=== PATIENT | female | born 1960 | race Caucasian/White ===

== ENCOUNTER 2017-10-09 05:30 | Emergency (ER) | payer BC ==
[2017-10-09] MEDS ORDERED: DIPH,PERTUS(ACELL)TETVAC-LF 0.5 ML VIAL IM ONE (05:42)
[2017-10-09 05:43] VITALS: RESP 18
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
[2017-10-09 06:40] LABS: ALT 42 U/L (9-52); AST 34 U/L (14-36); Acetaminophen <10.0 ug/mL; Alcohol <10 mg/dL; Alkaline Phosphatase 76 U/L (38-126); Anion Gap 10 mmol/L; Blood Urea Nitrogen 18 mg/dL (7-17); Calcium 10.4 mg/dL (8.4-10.2); Carbon Dioxide 25 mmol/L (22-30); Chloride 106 mmol/L (98-107); Glucose 111 mg/dL (74-99); Non-African American GFR(MDRD) >60 (>60 ml/min/1.73 sqM); Potassium 4.3 mmol/L (3.5-5.1); Sodium 141 mmol/L (137-145); Total Bilirubin 0.9 mg/dL (0.2-1.3); Total Protein 7.6 g/dL (6.3-8.2)
[2017-10-09 06:48] LABS: Basophils % (A) 1 %; CH 34.6; CHCM 33.8; Eosinophils % (A) 0 %; HCT 46.9 % (34.0-46.0); HDW 2.55; HGB 15.5 gm/dL (11.4-16.0); Luc # (Auto) 0.09; Luc % (Auto) 1; Lymphocytes # (A) 1.5 k/uL (1.0-4.8); Lymphocytes % (A) 17 %; MCH 34.1 pg (25.0-35.0); MCHC 33.1 g/dL (31.0-37.0); MCV 102.9 fL (80.0-100.0); Macrocytosis Slight; Mean Platelet Volume 8.7; Monocytes # (A) 0.5 k/uL (0-1.0); Monocytes % (A) 5 %; Neutrophils # (A) 6.5 k/uL (1.3-7.7); Neutrophils % (A) 76 %; RBC 4.55 m/uL (3.80-5.40); RDW 14.5 % (11.5-15.5); WBC 8.6 k/uL (3.8-10.6); WBC (Perox) 8.52
[2017-10-09 10:10] VITALS: TEMP 98.2
[2017-10-09 12:47] VITALS: BP 173/84; PULSE 82
== END 2017-10-09 12:48 | disposition other institution (70) ==
LOC: EC 05:30
DX: F32.9 Major depressive disorder, single episode, unspecified (principal); R45.851 Suicidal ideations; S61.511A Laceration without foreign body of right wrist, initial encounter; F17.200 Nicotine dependence, unspecified, uncomplicated; Z88.8 Allergy status to other drugs, medicaments and biological substances; Z53.29 Procedure and treatment not carried out because of patient's decision for other reasons; X78.1XXA Intentional self-harm by knife, initial encounter
CPT/HCPCS: 36415; 80053; 80320; 82075; 83520; 85025; 93005; 99285

== ENCOUNTER 2017-11-06 08:17 | Emergency (ER) | payer BC ==
[2017-11-06 08:23] VITALS: BP 157/75; PULSE 80; RESP 16; TEMP 98.2
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
== END 2017-11-06 08:57 | disposition home or self-care (01) ==
LOC: EC 08:17
DX: Z76.0 Encounter for issue of repeat prescription (principal); F17.200 Nicotine dependence, unspecified, uncomplicated; Z88.5 Allergy status to narcotic agent; Z88.8 Allergy status to other drugs, medicaments and biological substances; Z91.048 Other nonmedicinal substance allergy status
CPT/HCPCS: 99281

== ENCOUNTER 2017-11-16 08:39 | Emergency (ER) | payer BC ==
[2017-11-16 08:45] VITALS: TEMP 97.3
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
[2017-11-16] MEDS: cloNIDine HCL 0.1 MG TAB PO STA ×2 (09:08→09:10)
[2017-11-16 09:13] VITALS: BP 179/80; PULSE 70; RESP 16
== END 2017-11-16 09:12 | disposition home or self-care (01) ==
LOC: EC 08:39
DX: I10 Essential (primary) hypertension (principal); Z76.0 Encounter for issue of repeat prescription; F32.9 Major depressive disorder, single episode, unspecified; Z88.8 Allergy status to other drugs, medicaments and biological substances; Z88.5 Allergy status to narcotic agent; Z53.20 Procedure and treatment not carried out because of patient's decision for unspecified reasons
CPT/HCPCS: 99282

== ENCOUNTER → 2018-03-20 | Outpatient (CLI) | payer BC ==
--- NOTE | 2018-03-23 11:07 | MM ---
Reason for exam: screening (asymptomatic). History: Patient is postmenopausal. Benign excisional biopsy of the right breast. Physical Findings: A clinical breast exam by your physician is recommended on an annual basis and results should be correlated with mammographic findings. MG Screening Mammo w CAD Bilateral CC and MLO view(s) were taken. No prior studies available for comparison. The breast tissue is heterogeneously dense. This may lower the sensitivity of mammography. Finding: There are typically benign round calcifications in the left breast. There is no discrete abnormality. ASSESSMENT: Negative, BI-RAD 1 RECOMMENDATION: Routine screening mammogram of both breasts in 1 year.
== END | disposition home or self-care (01) ==
LOC: RADMAMWWP 07:26
PROVIDERS: ATTEND Family Medicine
DX: Z12.31 Encounter for screening mammogram for malignant neoplasm of breast (principal)
CPT/HCPCS: 77067

== ENCOUNTER → 2018-03-27 | Outpatient (CLI) | payer BC ==
[2018-03-27 09:28] LABS: HCT 43.7 % (34.0-46.0); HGB 14.6 gm/dL (11.4-16.0); MCH 33.6 pg (25.0-35.0); MCHC 33.5 g/dL (31.0-37.0); MCV 100.2 fL (80.0-100.0); Mean Platelet Volume 7.5; Platelet Count 173 k/uL (150-450); RBC 4.36 m/uL (3.80-5.40); RDW 13.3 % (11.5-15.5); WBC 5.2 k/uL (3.8-10.6)
[2018-03-27 09:56] LABS: ALT 41 U/L (9-52); AST 31 U/L (14-36); Albumin 4.3 g/dL (3.5-5.0); Alkaline Phosphatase 83 U/L (38-126); Anion Gap 9 mmol/L; Blood Urea Nitrogen 9 mg/dL (7-17); Calcium 9.8 mg/dL (8.4-10.2); Carbon Dioxide 29 mmol/L (22-30); Chloride 106 mmol/L (98-107); Cholesterol 176 mg/dL (<200); Glucose 87 mg/dL (74-99); HDL Cholesterol 46 mg/dL (40-60); LDL Cholesterol,Calculated 82 mg/dL (0-99); Potassium 4.6 mmol/L (3.5-5.1); Sodium 144 mmol/L (137-145); Total Bilirubin 0.8 mg/dL (0.2-1.3); Total Protein 6.6 g/dL (6.3-8.2); Triglycerides 241 mg/dL (<150)
== END ==
LOC: LABWHC1 08:52
PROVIDERS: ATTEND Internal Medicine Cardiovascular Disease
DX: E78.2 Mixed hyperlipidemia (principal); I25.10 Atherosclerotic heart disease of native coronary artery without angina pectoris
CPT/HCPCS: 36415; 80053; 80061; 85027

== ENCOUNTER 2018-03-30 07:49 | Day surgery (SDC) | payer BC ==
[~2018-03-30 07:49] MED LIST: ALPRAZolam 0.25 MG TAB PO PRN; ASPIRIN 325 MG TAB PO ONE; SODIUM CHLORIDE 0.9% 1,000 ML in EMPTY BAG 1 BAG IV ONE
[2018-03-30] MEDS ORDERED: LIDOCAINE 2% INJ 20 MG/ML (20 ML MDV) ONE ×2 (08:17→12:10)
[2018-03-30] MEDS ORDERED: diphenhydrAMINE 50 MG/ML 1 ML VIAL ONE ×2 (08:17→12:22)
[2018-03-30] MEDS ORDERED: diphenhydrAMINE 50 MG/ML 1 ML VIAL IVP ONE ×2 (08:20→12:30)
[2018-03-30] MEDS ORDERED: MIDAZOLAM 2 MG/2 ML VIAL IV ONE ×2 (08:20→11:05)
[2018-03-30] MEDS ORDERED: MIDAZOLAM 2 MG/2 ML VIAL ONE ×3 (08:21→12:22)
[2018-03-30] MEDS ORDERED: LIDOCAINE 2% INJ 20 MG/ML SQ ONE (08:22)
[2018-03-30] MEDS ORDERED: amLODIPine 5 MG TAB ONE (08:38)
[2018-03-30] MEDS ORDERED: amLODIPine 5 MG TAB PO ONE (08:41)
[2018-03-30] MEDS ORDERED: IOPAMIDOL-370 125ML BTL INJ ONE (08:50)
--- NOTE | 2018-03-30 09:27 | CC ---
CARDIAC CATHETERIZATION REPORT INDICATION: Abnormal stress test that was done as part of preop cardiac evaluation. PROCEDURE NOTE: After obtaining informed consent, left heart catheterization and coronary angiogram were performed via the right femoral artery using standard Susan catheters. Patient tolerated the procedure well without any obvious immediate complications. The patient tolerated the procedure well. FINDINGS: 1. HEMODYNAMICS: Left ventricular end-diastolic pressure is 18 mm. There is no significant gradient across the aortic valve. 2. LEFT VENTRICULOGRAM: Left ventriculogram is not performed. 3. ANGIOGRAPHIC DATA: 4. Left main coronary artery: Left main coronary artery is a normal size vessel and is free of stenosis. Divides into left anterior descending coronary artery and circumflex coronary artery. LAD is totally occluded in its proximal portion. There are extensive collaterals. There are collaterals which are both [id number] and [id number]. Circumflex coronary artery has a mild to moderate lesion in the proximal part. Right coronary artery is a large dominant vessel which has extensive collaterals to the LAD distribution. There is a 70% stenosis in the mid RCA and also a more proximal 60% to 70% stenosis. CONCLUSION: Three-vessel coronary artery disease as described above with a chronically occluded left anterior descending artery, significant stenosis in the right coronary artery with extensive collaterals to the left anterior descending artery. The patient's abnormal stress test is related to the left anterior descending artery lesion, which is being collateralized by the right coronary artery. Hence, we believe she will benefit from revascularizing the right coronary artery distribution. Angiographic data was reviewed by Dr. Marc Goldman the on-call track dresser who felt that the patient will benefit from the angioplasty of the right coronary artery and will proceed with it expeditiously. MMODL / IJN: [id number] /
[2018-03-30] MEDS ORDERED: ENALAPRILAT 1.25 MG/ML 1 ML VIAL IVP STA (09:49)
[2018-03-30] MEDS: LISINOPRIL 10 MG TAB PO SCH (10:14)
[2018-03-30] MEDS ORDERED: BIVALIRUDIN BOLUS 250 MG/50 ML IV ONE (12:30)
[2018-03-30] MEDS ORDERED: MIDAZOLAM 2 MG/2 ML VIAL IVP ONE (12:30)
[2018-03-30] MEDS ORDERED: SODIUM CHLORIDE 0.9% 1,000 ML IV ONE (12:30)
[2018-03-30] MEDS ORDERED: BIVALIRUDIN 250 MG in SODIUM CHLORIDE 0.9% 50 ML IV ONE (12:31)
[2018-03-30] MEDS: NITROGLYCERIN 1000MCG/10ML SYRINGE INTRACORON ONE ×2 (12:42→12:51)
[2018-03-30] MEDS ORDERED: IOPAMIDOL-370 100ML BTL INJ ONE (12:47)
[2018-03-30] MEDS ORDERED: CLOPIDOGREL 75 MG TAB ONE (12:58)
[2018-03-30] MEDS ORDERED: RX INFO: IV CONTRAST WAS GIVEN 1 EACH MISC MISCELLANE PRN (13:03)
[2018-03-30] MEDS ORDERED: MAG HYDROX/AL HYDROX/SIMETH 30 ML CUP PO PRN (13:03)
[2018-03-30] MEDS ORDERED: CLOPIDOGREL 75 MG TAB PO ONE (13:03)
[2018-03-30] MEDS ORDERED: ATROPINE SULFATE 0.1 MG/ML 10ML SYRINGE IV PRN (13:03)
[2018-03-30] MEDS ORDERED: NITROGLYCERIN SL TABS 0.4 MG TAB SUBLINGUAL PRN (13:03)
[2018-03-30] MEDS ORDERED: IOPAMIDOL-300 100ML BTL INJ ONE (13:03)
[2018-03-30] MEDS ORDERED: HYDROmorphone 0.5 MG/0.5 ML SYRINGE IVP STA (14:04)
[2018-03-30] MEDS: HYDROcodone/APAP 7.5-325MG 1 EACH TAB PO PRN (20:19)
--- NOTE | 2018-03-30 20:36 | PTCA ---
PERCUTANEOUSTRANS CORORONARY ANGIOGRAPHY DATE OF SERVICE: 03/30/2018 PROCEDURE: Percutaneous transluminal coronary angioplasty and stenting of proximal and mid right coronary artery with 3 drug-eluting stents. PERFORMED BY: Dr. Damir Goldman Moderate conscious sedation time was 30 minutes with a combination of Versed and Benadryl. CLINICAL INFORMATION: Mrs. Lucero Burnett is a 58-year-old lady, a patient of Dr. Donald, who had an abnormal stress test and underwent cardiac cath performed by Dr. Donald earlier today. Study revealed a total occlusion of LAD which is probably a chronic occlusion with collaterals filling from the right coronary system, and non-critical disease in circumflex. The proximal segment of RCA had 2 tandem lesions. The proximal of these lesions was 60% and the distal lesion was 70% to 75%, eccentric, best seen in the HAT[place]AY projection in frame #34 on the first diagnostic cath . Distal portion of the RCA , well before bifurcation, had another 60% narrowing as well. There is a large acute marginal and also distal branches of the superdominant RCA which were providing collaterals to the LAD system. Patient was advised intervention of the RCA, given the fact it was supplying two territories; one was LAD, which was totally occluded, and the other was the RCA itself, and this was a superdominant vessel. I recommended intervention after due discussion with the patient and her . PROCEDURE NOTE: The existing 6-Austrian introducer in the right femoral artery was used to perform the procedure. A standard right Susan type guide catheter was used to cannulate the right coronary artery. A BMW wire was used to cross the lesion and wire was kept distally. Without predilatation, I deployed 3 stents. All these stents were 12 mm long, 3.0 caliber. The first 2 stents were deployed in the proximal 2 tandem lesions. The third stent was deployed in the distal lesion. Patient had significant chest pain with anterior and inferior ST elevation with the proximal lesions, but with the distal lesion only inferior ST elevation was noted. Excellent angiographic result without complication was achieved. Patient received 600 mg of Plavix orally and she also received Angiomax bolus and infusion. The sheath was taken out and Angio-Seal device used to secure hemostasis and she was sent to the room in a stable condition. Results were discussed with the patient and her . I expect that she will be discharged tomorrow. Risk factor modifications, including smoking cessation issues, were discussed at length with the patient and . ROSINA / LI: [id number] / EFE
--- NOTE | 2018-03-30 20:42 | LTR ---
March 30, 2018 To: Srini Alarcon MD Re: Lucero Burnett (1960) Dear Dr. Alarcon, Thank you for the opportunity to participate in the care of Mrs Lucero Burnett. Please find enclosed my detailed PTCA report for your records. This lady has 3 lesions in the RCA, all of which were addressed with drug-eluting stents. She also has an LAD chronic total occlusion which can be addressed at a later time. I believe the anterior wall is viable and she will benefit from JD EDWARDS intervention which can be performed later on. Thank you for your referral. Please do call for questions. With kindest regards, Sincerely, Damir Goldman MD MMODL / JOSEN: [id number] /
[2018-03-30] MEDS: ZOLPIDEM 5 MG TAB PO PRN (22:49)
[2018-03-31] MEDS: HYDROcodone/APAP 7.5-325MG 1 EACH TAB PO PRN ×3 (04:16→23:05)
[2018-03-31] MEDS: METOPROLOL TARTRATE 12.5 MG TAB PO SCH ×2 (04:17→09:24)
[2018-03-31] MEDS: ATORVASTATIN 80 MG TAB PO SCH ×2 (04:17→23:05)
[2018-03-31 07:06] LABS: Basophils % (A) 0 %; Eosinophils % (A) 0 %; HCT 40.5 % (34.0-46.0); HGB 13.4 gm/dL (11.4-16.0); Lymphocytes # (A) 2.6 k/uL (1.0-4.8); Lymphocytes % (A) 37 %; MCH 32.9 pg (25.0-35.0); MCHC 33.1 g/dL (31.0-37.0); MCV 99.6 fL (80.0-100.0); Mean Platelet Volume 7.7; Monocytes # (A) 0.3 k/uL (0-1.0); Monocytes % (A) 5 %; Neutrophils # (A) 3.9 k/uL (1.3-7.7); Neutrophils % (A) 56 %; Platelet Count 151 k/uL (150-450); RBC 4.06 m/uL (3.80-5.40); RDW 13.7 % (11.5-15.5); WBC 7.1 k/uL (3.8-10.6)
[2018-03-31 07:34] LABS: Anion Gap 8 mmol/L; Blood Urea Nitrogen 13 mg/dL (7-17); Calcium 8.9 mg/dL (8.4-10.2); Carbon Dioxide 25 mmol/L (22-30); Chloride 110 mmol/L (98-107); Glucose 70 mg/dL (74-99); Sodium 143 mmol/L (137-145)
[2018-03-31] MEDS: SODIUM CHLORIDE 0.9% 1,000 ML IV SCH ×2 (07:59→16:07)
[2018-03-31] MEDS: ASPIRIN 81 MG PO SCH (08:01)
[2018-03-31] MEDS: FLUoxetine HCL 20 MG CAP PO SCH (08:02)
[2018-03-31] MEDS: ARIPiprazole 10 MG TAB PO SCH (08:02)
[2018-03-31] MEDS: CLOPIDOGREL 75 MG TAB PO SCH (08:02)
[2018-03-31] MEDS: lamoTRIgine 25 MG TAB PO SCH (08:03)
[2018-03-31] MEDS ORDERED: ASPIRIN 81 MG PO SCH (09:00)
[2018-03-31] MEDS: LISINOPRIL 10 MG TAB PO SCH (09:24)
--- NOTE | 2018-03-31 12:45 | DS ---
DISCHARGE SUMMARY DATE OF ADMISSION: 03/30/2018 DATE OF DISCHARGE: 03/31/2018. FINAL DIAGNOSIS: Multivessel coronary artery disease. PROCEDURES PERFORMED: 1. Left heart catheterization. 2. Angioplasty of sam[place] right coronary artery. HOSPITAL COURSE: This is a 58-year-old lady who was initially referred to me for preop cardiac evaluation. Had a stress test that showed ischemia and hence was scheduled for an outpatient cardiac catheterization. Her angiogram revealed a chronic total occlusion of proximal LAD, critical stenosis involving right coronary artery and extensive collaterals to the distal LAD with a moderate stenosis involving circumflex coronary artery. She underwent angioplasty of the right and we are going to talk to her about referring her out of town to address the chronic occlusion of the LAD. This morning, patient is doing well and she is pain free, hemodynamically stable, has mild groin discomfort. PHYSICAL EXAMINATION: On exam, heart rate is 48 beats per minute, blood pressure 147/79, respiratory rate is 18, O2 sat is 97%. There is no jugular venous distention. Carotid upstroke is normal. There is no bruit. Chest exam reveals good air entry bilaterally. Heart exam reveals first and second heart sounds. No gallop. Groin is free of bleeding, bruit, hematoma. Foot pulses are intact. LABS: Labs show that the hemoglobin is 13.4, platelet count is 150, potassium is 4, creatinine is 0.7. EKG shows sinus bradycardia. There are no acute ST-T wave changes noted. DISCHARGE MEDICATIONS: The patient will be discharged home on her own medications including Lamictal, Prozac, Abilify, [place], aspirin and she will also go home on Plavix 75 mg daily, Lipitor 80 mg daily. I am going to stop the metoprolol and increase the dose of Zestril to 20 mg daily. She will also have a sublingual nitroglycerin on p.r.n. basis. FOLLOWUP: The patient will be followed up in my office in 1 to 2 weeks time. The EKG on discharge shows sinus bradycardia. Labs show that the creatinine is normal. MMODL / IJN: [id number] /
--- NOTE | 2018-03-31 14:24 | US ---
EXAMINATION TYPE: US lower ext pseudo artery RT DATE OF EXAM: 03/31/2018 COMPARISON: NONE CLINICAL HISTORY: hematoma. EXAM PERFORMED: Grayscale and color Doppler duplex imaging performed of the groin, post cardiac nini ter to assess for pseudoaneurysm. SIDE PERFORMED: Right Color and Waveform Doppler performed to assess for the presence of pseudoaneurysm; At the HOT POND OPERATOR there is superior flow moving in a tortuous manner. Technologist believes this may reconne ct with the HOT POND OPERATOR but it is possible it is stagnant in this tubular structure. Is there evidence of AV shunting: no Is there a fluid collection present: no Two-view or vascular appearance is noted superficial to the common femoral artery. This could possibl y represent a branch. IMPRESSION: Difficult to exclude pseudoaneurysm on basis of this exam, CTA of the groin may be of benefit.
[2018-03-31] MEDS ORDERED: RX INFO: IV CONTRAST WAS GIVEN 1 EACH MISC MISCELLANE PRN (15:00)
[2018-03-31] MEDS ORDERED: diphenhydrAMINE 50 MG/ML 1 ML VIAL IVP ONE (15:07)
[2018-03-31] MEDS ORDERED: methylPREDNISolone SOD SUCCI 125 MG/2 ML VIAL IV ONE (15:07)
[2018-03-31] MEDS ORDERED: FAMOTIDINE 20 MG/2 ML VIAL IV ONE (15:07)
--- NOTE | 2018-03-31 19:04 | CT ---
EXAMINATION TYPE: CT angio pelvis DATE OF EXAM: 03/31/2018 6:56 PM COMPARISON: NONE HISTORY: Right groin pain post stent placement. CT DLP: 690 mGycm Automated exposure control for dose reduction was used. TECHNIQUE: Performed with IV Contrast, patient injected with 100ml mL of Isovue 370. Multiple axial sections were obtained without and subsequently with intravenous contrast from the top of the kidneys to the proximal femurs.. There are 3-D post processed images. FINDINGS: There is subcutaneous edema and soft tissue swelling in the right inguinal region. There is arterial flow in the abdominal aorta which is atheromatous. There is patency of the common internal and certified phlebotomist al iliac arteries bilaterally. There is arterial flow in the femoral arteries. There is arterial flow in the profunda femoris artery and the superficial femoral artery bilaterally. I see no discrete pat hologic fluid collection. I see no definite free fluid in the pelvis. Bladder distends smoothly. IMPRESSION: MODERATE SUBCUTANEOUS EDEMA IN THE RIGHT INGUINAL REGION IN THIS PATIENT WITH RECENT PROCEDURE. NO EV IDENCE OF A PSEUDOANEURYSM. NO EVIDENCE OF ARTERIAL OCCLUSION.
[2018-03-31] MEDS: ZOLPIDEM 5 MG TAB PO PRN (23:38)
[2018-04-01] MEDS: HYDROcodone/APAP 7.5-325MG 1 EACH TAB PO PRN (06:00)
[2018-04-01 06:12] LABS: Basophils % (A) 0 %; Eosinophils % (A) 0 %; HCT 37.8 % (34.0-46.0); HGB 12.5 gm/dL (11.4-16.0); Lymphocytes # (A) 0.7 k/uL (1.0-4.8); Lymphocytes % (A) 11 %; MCH 33.2 pg (25.0-35.0); MCHC 33.1 g/dL (31.0-37.0); MCV 100.3 fL (80.0-100.0); Macrocytosis Slight; Mean Platelet Volume 8.2; Monocytes # (A) 0.3 k/uL (0-1.0); Monocytes % (A) 4 %; Neutrophils # (A) 5.6 k/uL (1.3-7.7); Neutrophils % (A) 84 %; Platelet Count 139 k/uL (150-450); RBC 3.77 m/uL (3.80-5.40); RDW 13.5 % (11.5-15.5); WBC 6.7 k/uL (3.8-10.6)
[2018-04-01] MEDS: ASPIRIN 81 MG PO SCH (07:57)
[2018-04-01] MEDS: FLUoxetine HCL 20 MG CAP PO SCH (07:57)
[2018-04-01] MEDS: CLOPIDOGREL 75 MG TAB PO SCH (07:57)
[2018-04-01] MEDS: lamoTRIgine 25 MG TAB PO SCH (07:57)
[2018-04-01] MEDS: ARIPiprazole 10 MG TAB PO SCH (07:58)
[2018-04-01 08:19] VITALS: PULSE 67; RESP 16
[2018-04-01 08:20] VITALS: BP 116/66; TEMP 98.3
[2018-04-01] MEDS ORDERED: LISINOPRIL 20 MG TAB PO SCH (09:00)
--- NOTE | 2018-04-01 09:34 | PN ---
PROGRESS NOTE This is a 58-year-old lady who underwent cardiac catheterization and angioplasty of [place] right coronary artery, who when she was about to be discharged home yesterday developed a hematoma, required manual compression and her discharge was postponed until today. She initially had a vascular duplex study that could not rule out a pseudoaneurysm, went on to have a CT scan that did not find any pseudoaneurysm or AV fistula. This morning she is doing well and is free of symptoms other than mild discomfort in the groin. She is ambulating without any problems. The CBC shows that the hemoglobin is around 12.8. PHYSICAL EXAM: The physical exam shows that the vital signs are stable. There is no jugular venous distention. Chest is clear to auscultation. Heart exam reveals first and second heart sounds. No gallop. Examination of extremities did not reveal any edema. Peripheral pulses are felt. Groin exam shows ecchymosis with mild discomfort. ASSESSMENT: 1. Coronary artery disease, status post angioplasty of right coronary artery. 2. Hematoma of the right groin. PLAN: Patient is stable. She is on the appropriate medical therapy. She may be discharged home. She will be discharged home today and follow up with me in the outpatient setting. The patient will go home on aspirin and Plavix. MMODL / IJN: [id number] /
== END 2018-04-01 09:21 | disposition home or self-care (01) ==
LOC: CATHCVL 07:49 → 6SEL 13:00 → CATHCVL 04-01 09:21
PROVIDERS: ATTEND Internal Medicine Cardiovascular Disease
DX: I25.10 Atherosclerotic heart disease of native coronary artery without angina pectoris (principal); I25.82 Chronic total occlusion of coronary artery; L76.32 Postprocedural hematoma of skin and subcutaneous tissue following other procedure; Z79.82 Long term (current) use of aspirin; Z79.899 Other long term (current) drug therapy; Z88.5 Allergy status to narcotic agent; Z88.8 Allergy status to other drugs, medicaments and biological substances; Z91.048 Other nonmedicinal substance allergy status; Z82.49 Family history of ischemic heart disease and other diseases of the circulatory system
CPT/HCPCS: 93458; 80048; 85025 ×2; 93975; 93926; 72191; C9600; C1769 ×2; C1760; C1887; C1894; C1874; J2001; J2250; J1200 ×2; J2930; J0583; J1170; Q9967 ×4

== ENCOUNTER 2018-04-13 09:13 | Observation (INO) | payer BC ==
[2018-04-13] MEDS ORDERED: NITROGLYCERIN OINT 1 INCH/GM PACKET TOPICAL STA (09:29)
[2018-04-13] MEDS ORDERED: ASPIRIN 81 MG PO STA (09:29)
--- NOTE | 2018-04-13 09:32 | ED ---
General Adult HPI - General Chief complaint: Chest Pain Stated complaint: chest pain Time Seen by Provider: 04/13/18 09:15 Source: patient, RN notes reviewed Mode of arrival: wheelchair Limitations: no limitations - History of Present Illness Initial comments: This is a 58-year-old female with a past medical history significant for smoking coronary artery disease with 3 stent placements and a strong family history. Patient states she woke up with chest pressure which radiated to her jaw. Patient states took 3 nitroglycerin and the pain is improved but is still subtly there. Patient states she's got shortness of breath with this pain. Patient denies any diaphoresis. Patient denies any nausea. Patient denies any recent fever chills or cough. Patient states she has reduced her smoking quite a bit. Patient denies any abdominal pain. Patient denies any vomiting or diarrhea. Patient denies any lightheadedness dizziness or near syncopal episode. - Related Data Home Medications Medication Instructions Recorded Confirmed ARIPiprazole [Abilify] 10 mg PO DAILY 03/24/18 04/13/18 HYDROcodone/APAP 5-325MG [[place] 1 tab PO TID PRN 04/13/18 04/13/18 5-325] lamoTRIgine [LaMICtal] 75 mg PO DAILY 04/13/18 04/13/18 Previous Rx's Medication Instructions Recorded FLUoxetine HCL [PROzac] 40 mg PO DAILY #14 cap 11/16/17 Aspirin [Adult Low Dose Aspirin EC] 81 mg PO DAILY 30 Days #30 03/31/18 tablet. Clopidogrel [Plavix] 75 mg PO DAILY 30 Days #30 tablet 03/31/18 Allergies Allergy/AdvReac Type Severity Reaction Status Date / Time cyclobenzaprine HCl Allergy Anaphylaxis Verified 04/13/18 10:22 [From Flexeril] Iodinated Contrast- Oral and Allergy Rash/Hives Verified 04/13/18 10:22 IV Dye iodine Allergy Rash/Hives, Verified 04/13/18 10:22 flushed,cris sea prochlorperazine edisylate Allergy Anaphylaxis Verified 04/13/18 10:22 [From Compazine] prochlorperazine maleate Allergy Anaphylaxis Verified 04/13/18 10:22 [From Compazine] codeine AdvReac Nausea & Verified 04/13/18 10:22 Vomiting Review of Systems ROS Statement: Those systems with pertinent positive or pertinent negative responses have been documented in the HPI. ROS Other: All systems not noted in ROS Statement are negative. Past Medical History Past Medical History: Coronary Artery Disease (CAD) Additional Past Medical History / Comment(s): chronic hip and back pain History of Any Multi-Drug Resistant Organisms: None Reported Past Surgical History: Heart Catheterization With Stent, Orthopedic Surgery Additional Past Surgical History / Comment(s): hemorroid sx, kidney stone removal, uretral stent, "windpipe" damage repair, right hip Past Anesthesia/Blood Transfusion Reactions: No Reported Reaction Past Psychological History: Depression Smoking Status: Current every day smoker Past Alcohol Use History: None Reported Past Drug Use History: Prescription Drug Abuse - Past Family History Mother Family Medical History: Cancer Additional Family Medical History / Comment(s): pancreas General Exam - General Exam Comments Initial Comments: GENERAL: Patient is well-developed and well-nourished. Patient is nontoxic and well- hydrated and is in mild distress ENT: Neck is soft and supple. No significant lymphadenopathy is noted. Oropharynx is clear. Moist mucous membranes. Neck has full range of motion without eliciting any pain. EYES: The sclera were anicteric and conjunctiva were pink and moist. Extraocular movements were intact and pupils were equal round and reactive to light. Eyelids were unremarkable. PULMONARY: Unlabored respirations. Good breath sounds bilaterally. No audible rales rhonchi or wheezing was noted. CARDIOVASCULAR: There is a regular rate and rhythm without any murmurs gallops or rubs. ABDOMEN: Soft and nontender with normal bowel sounds. No palpable organomegaly was noted. There is no palpable pulsatile mass. SKIN: Skin is clear with no lesions or rashes and otherwise unremarkable. NEUROLOGIC: Patient is alert and oriented x3. Cranial nerves II through XII are grossly intact. Motor and sensory are also intact. Normal speech, volume and content. Symmetrical smile. MUSCULOSKELETAL: Normal extremities with adequate strength and full range of motion. No lower extremity swelling or edema. No calf tenderness. LYMPHATICS: No significant lymphadenopathy is noted PSYCHIATRIC: Normal psychiatric evaluation. Normal interpersonal interactions appears functionally intact in deals appropriately with others. No signs of depression. No signs of anxiety. Limitations: no limitations Course Vital Signs 04/13/18 04/13/18 04/13/18 09:14 09:47 09:52 Temperature 97.6 F Pulse Rate 68 59 L 56 L Respiratory 18 18 18 Rate Blood Pressure 157/79 153/80 122/73 O2 Sat by Pulse 96 99 99 Oximetry Medical Decision Making - Medical Decision Making EKG shows normal sinus rhythm at 63 bpm SD interval is 116 QRS is 78 QT interval is 428 QTC is 437. Patient's EKG shows no ST segment elevation or depression or T wave abnormalities are noted. Chest x-ray shows no acute abnormality. I spoke with Dr. Dejesus he agreed to admit the patient admitted the patient I wrote admitting orders and consult cardiology. I started the patient heparin because of her significant chest pain especially with relief with nitroglycerin.. I continue the heparin Nitropaste and aspirin on the floor. Patient's pain was completely relieved with the second nitroglycerin - Lab Data Result diagrams: 04/13/18 09:21 04/13/18 09:21 Lab Results 04/13/18 04/13/18 04/13/18 Range/Units 09:21 09:21 09:21 WBC 7.1 (3.8-10.6) k/uL RBC 4.11 (3.80-5.40) m/uL Hgb 13.5 (11.4-16.0) gm/dL Hct 41.1 (34.0-46.0) % MCV 100.1 H (80.0-100.0) fL MCH 32.8 (25.0-35.0) pg MCHC 32.8 (31.0-37.0) g/dL RDW 14.0 (11.5-15.5) % Plt Count 160 (150-450) k/uL Neutrophils % 68 % Lymphocytes % 23 % Monocytes % 5 % Eosinophils % 2 % Basophils % 1 % Neutrophils # 4.8 (1.3-7.7) k/uL Lymphocytes # 1.7 (1.0-4.8) k/uL Monocytes # 0.4 (0-1.0) k/uL Eosinophils # 0.1 (0-0.7) k/uL Basophils # 0.0 (0-0.2) k/uL Macrocytosis Slight PT (9.0-12.0) sec INR (<1.2) APTT (22.0-30.0) sec Sodium 143 (137-145) mmol/L Potassium 4.0 (3.5-5.1) mmol/L Chloride 107 (98-107) mmol/L Carbon Dioxide 26 (22-30) mmol/L Anion Gap 10 mmol/L BUN 13 (7-17) mg/dL Creatinine 0.68 (0.52-1.04) mg/dL Est GFR (CKD-EPI)AfAm >90 (>60 ml/min/1.73 sqM) Est GFR (CKD-EPI)NonAf >90 (>60 ml/min/1.73 sqM) Glucose 82 (74-99) mg/dL Calcium 9.5 (8.4-10.2) mg/dL Magnesium 1.8 (1.6-2.3) mg/dL Total Bilirubin 0.9 (0.2-1.3) mg/dL AST 32 (14-36) U/L ALT 44 (9-52) U/L Alkaline Phosphatase 89 (38-126) U/L Total Creatine Kinase 31 (30-135) U/L CK-MB (CK-2) 1.2 (0.0-2.4) ng/mL CK-MB (CK-2) Rel Index 3.9 Troponin I <0.012 (0.000-0.034) ng/mL Total Protein 6.5 (6.3-8.2) g/dL Albumin 4.1 (3.5-5.0) g/dL 04/13/18 Range/Units 09:21 WBC (3.8-10.6) k/uL RBC (3.80-5.40) m/uL Hgb (11.4-16.0) gm/dL Hct (34.0-46.0) % MCV (80.0-100.0) fL MCH (25.0-35.0) pg MCHC (31.0-37.0) g/dL RDW (11.5-15.5) % Plt Count (150-450) k/uL Neutrophils % % Lymphocytes % % Monocytes % % Eosinophils % % Basophils % % Neutrophils # (1.3-7.7) k/uL Lymphocytes # (1.0-4.8) k/uL Monocytes # (0-1.0) k/uL Eosinophils # (0-0.7) k/uL Basophils # (0-0.2) k/uL Macrocytosis PT 9.9 (9.0-12.0) sec INR 1.0 (<1.2) APTT 24.8 (22.0-30.0) sec Sodium (137-145) mmol/L Potassium (3.5-5.1) mmol/L Chloride (98-107) mmol/L Carbon Dioxide (22-30) mmol/L Anion Gap mmol/L BUN (7-17) mg/dL Creatinine (0.52-1.04) mg/dL Est GFR (CKD-EPI)AfAm (>60 ml/min/1.73 sqM) Est GFR (CKD-EPI)NonAf (>60 ml/min/1.73 sqM) Glucose (74-99) mg/dL Calcium (8.4-10.2) mg/dL Magnesium (1.6-2.3) mg/dL Total Bilirubin (0.2-1.3) mg/dL AST (14-36) U/L ALT (9-52) U/L Alkaline Phosphatase (38-126) U/L Total Creatine Kinase (30-135) U/L CK-MB (CK-2) (0.0-2.4) ng/mL CK-MB (CK-2) Rel Index Troponin I (0.000-0.034) ng/mL Total Protein (6.3-8.2) g/dL Albumin (3.5-5.0) g/dL Critical Care Time Critical Care Time: Yes Total Critical Care Time: 35 Disposition Clinical Impression: Unstable angina pectoris Disposition: ADMITTED IP TO THIS [facility] Referrals: Srini Alarcon MD [Primary Care Provider] - 1-2 days Time of Disposition: 10:48
[2018-04-13] MEDS: NITROGLYCERIN SL TABS 0.4 MG TAB SUBLINGUAL STA ×2 (09:48→09:53)
[2018-04-13 10:04] LABS: Basophils % (A) 1 %; Eosinophils # (A) 0.1 k/uL (0-0.7); Eosinophils % (A) 2 %; HCT 41.1 % (34.0-46.0); HGB 13.5 gm/dL (11.4-16.0); Lymphocytes # (A) 1.7 k/uL (1.0-4.8); Lymphocytes % (A) 23 %; MCH 32.8 pg (25.0-35.0); MCHC 32.8 g/dL (31.0-37.0); MCV 100.1 fL (80.0-100.0); Macrocytosis Slight; Monocytes # (A) 0.4 k/uL (0-1.0); Monocytes % (A) 5 %; Neutrophils # (A) 4.8 k/uL (1.3-7.7); Neutrophils % (A) 68 %; Platelet Count 160 k/uL (150-450); RBC 4.11 m/uL (3.80-5.40); WBC 7.1 k/uL (3.8-10.6)
--- NOTE | 2018-04-13 10:13 | XR ---
EXAMINATION TYPE: XR chest 2V DATE OF EXAM: 04/13/2018 COMPARISON: 02/25/2016 HISTORY: Chest pain recent cardiac stent placement. TECHNIQUE: Frontal and lateral views of the chest are obtained. FINDINGS: There is no focal air space opacity, pleural effusion, or pneumothorax seen. Postoperativ e changes of the chest are seen with mediastinal clips and median sternotomy wires. Dehiscence of the most inferior sternotomy wire is similar to the prior. Coronary artery stent is incidentally noted. The cardiac silhouette size is within normal limits. The osseous structures are intact. IMPRESSION: No acute cardiopulmonary process.
[2018-04-13 10:17] LABS: ALT 44 U/L (9-52); AST 32 U/L (14-36); Albumin 4.1 g/dL (3.5-5.0); Alkaline Phosphatase 89 U/L (38-126); Anion Gap 10 mmol/L; Blood Urea Nitrogen 13 mg/dL (7-17); Calcium 9.5 mg/dL (8.4-10.2); Carbon Dioxide 26 mmol/L (22-30); Chloride 107 mmol/L (98-107); Glucose 82 mg/dL (74-99); Magnesium 1.8 mg/dL (1.6-2.3); Partial Thromboplastin Time 24.8 sec (22.0-30.0); Prothrombin Time 9.9 sec (9.0-12.0); Sodium 143 mmol/L (137-145); Total Bilirubin 0.9 mg/dL (0.2-1.3); Total Protein 6.5 g/dL (6.3-8.2)
[2018-04-13 10:27] LABS: Creatine Kinase 31 U/L (30-135)
[2018-04-13 10:40] LABS: Creatine Kinase MB 1.2 ng/mL (0.0-2.4); Troponin I <0.012 ng/mL (0.000-0.034)
[2018-04-13] MEDS ORDERED: NITROGLYCERIN SL TABS 0.4 MG TAB SUBLINGUAL PRN (10:48)
[2018-04-13 12:19] VITALS: RESP 18
[2018-04-13] MEDS: ASPIRIN 81 MG PO SCH (12:22)
[2018-04-13] MEDS: NITROGLYCERIN OINT 1 INCH/GM PACKET TOPICAL SCH ×2 (12:41→17:39)
[2018-04-13] MEDS: ARIPiprazole 10 MG TAB PO SCH (12:49)
[2018-04-13] MEDS: FLUoxetine HCL 20 MG CAP PO SCH (12:49)
[2018-04-13] MEDS: CLOPIDOGREL 75 MG TAB PO SCH (12:50)
[2018-04-13] MEDS: lamoTRIgine 25 MG TAB PO SCH (12:50)
[2018-04-13] MEDS ORDERED: ONDANSETRON 4 MG/2 ML VIAL IVP PRN (13:01)
[2018-04-13 13:39] VITALS: BMI 21.2
[2018-04-13] MEDS ORDERED: ATORVASTATIN 80 MG TAB PO STA (13:49)
--- NOTE | 2018-04-13 16:20 | CONS ---
CONSULTATION This is a 58-year-old lady who used to smoke heavily, was recently hospitalized on March 30 and underwent stenting of 3 lesions in her RCA, which was a very super-dominant vessel that was providing collaterals to a totally occluded LAD which seemed to be a chronic total occlusion. Post procedure she had some hematoma in the right groin, but the CT did not reveal any evidence of either pseudoaneurysm or of any abnormality. She was discharged uneventfully, advised to take aspirin, Plavix, Lipitor and Zestril. She was not given beta blockers because her resting heart rate was in the mid to low 50s. However, she did not take the statin and she did not take any Zestril. She only took aspirin and Plavix. She comes into the hospital complaining of waking up this morning with pain in her chest. Apparently she went to sleep on the couch last night and she woke up at about 6:00 or so and had discomfort in the chest. She describes this as a sharp feeling that comes and goes, lasts less than a minute on each occasion. Because of these symptoms, she came into the hospital, and in the hospital after she arrived she had some shortness of breath, but by the time she got here chest pain was relieved. But she took 3 nitroglycerin, is what she is telling us. However, her pain lasted less than a minute on each occasion. She is pain-free, resting comfortably. No chest pain. I explained to her the importance of taking statins. She says she has quit smoking, but I am not sure, since the chart states she continues to smoke. PAST MEDICAL HISTORY: 1. Recent hospitalization with stenting of superdominant RCA, known LAD occlusion with collaterals. 2. Hypertension. 3. Hyperlipidemia. 4. Smoking and COPD. MEDICATIONS: Medications that she has taken at home include: 1. Aspirin 81 mg daily. 2. Plavix 75 mg daily. 3. Abilify. 4. Hydrocodone. 5. Lamotrigine. ALLERGIES: 1. IODINE DYE. 2. COMPAZINE. 3. CODEINE. 4. FLEXERIL. PHYSICAL EXAMINATION: Blood pressure is 140/84. Pulse rate is about 52 per minute, regular. HEENT: Unremarkable. Fundus was not examined by me. NECK: Supple. No JVD. I do not hear a carotid bruit. There is no thyromegaly. Heart exam reveals S1, S2 heard normally. No rub, murmur or gallop. Lungs are clear. Abdomen is soft, nontender. Lower extremities reveal normal pulses. Right groin has an area of ecchymosis with a soft bruit noted. EKG revealed a sinus mechanism with Q-waves in leads V1, V2 and borderline voltage criteria for LVH. Possibility of old septal FL should be considered. No acute changes. Initial troponin levels are normal. IMPRESSION: 1. Atypical chest pain. 2. Known chronic left anterior descending coronary artery occlusion with recent stenting of right coronary artery in 3 areas with drug-eluting stents of a superdominant right coronary artery. 3. Smoking and chronic obstructive pulmonary disease. 4. Hypertension. 5. Hyperlipidemia. RECOMMENDATION: I am recommending that we start her on statin, Lipitor 80 mg daily, with a dose now, lisinopril 10 mg daily. Continue aspirin and Plavix. Given her resting bradycardia, we will hold beta cosmo for now. I explained to the patient the importance of taking statins. Her pain seems atypical. If she has no further symptoms, I would not recommend a re-study. If she has any chest pain while she is here in the next 18-24 hours, we will consider repeat cardiac catheterization. I discussed my thoughts in detail with the patient. Thank you very much for the consult. ROSINA / LI: [id number] /
[2018-04-13] MEDS: HYDROcodone/APAP 5-325MG 1 EACH TAB PO PRN (21:52)
[2018-04-14 02:43] LABS: Cholesterol 199 mg/dL (<200); HDL Cholesterol 85 mg/dL (40-60); LDL Cholesterol,Calculated 91 mg/dL (0-99); Triglycerides 113 mg/dL (<150)
[2018-04-14] MEDS: HYDROcodone/APAP 5-325MG 1 EACH TAB PO PRN (06:21)
[2018-04-14] MEDS: NITROGLYCERIN OINT 1 INCH/GM PACKET TOPICAL SCH ×4 (06:22→11:07)
[2018-04-14] MEDS: lamoTRIgine 25 MG TAB PO SCH (08:49)
[2018-04-14] MEDS: FLUoxetine HCL 20 MG CAP PO SCH (08:50)
[2018-04-14] MEDS: CLOPIDOGREL 75 MG TAB PO SCH (08:50)
[2018-04-14] MEDS: ASPIRIN 81 MG PO SCH (08:50)
[2018-04-14] MEDS: ARIPiprazole 10 MG TAB PO SCH (08:50)
[2018-04-14] MEDS ORDERED: LISINOPRIL 10 MG TAB PO SCH (09:00)
[2018-04-14] MEDS ORDERED: ASPIRIN 325 MG TAB PO SCH (09:00)
[2018-04-14] MEDS ORDERED: NICOTINE POLACRILEX 2 MG GUM BUCCAL PRN (10:28)
[2018-04-14] MEDS ORDERED: NICOTINE 21MG/24HR PATCH TRANSDERM SCH (10:30)
[2018-04-14] MEDS ORDERED: NICOTINE 14MG/24HR PATCH TRANSDERM SCH (11:15)
[2018-04-14 11:20] VITALS: BP 144/77; PULSE 57; TEMP 97.8
--- NOTE | 2018-04-14 12:21 | HP ---
HISTORY AND PHYSICAL DATE OF ADMISSION: 04/13/2018 DATE OF SERVICE: 04/13/2018 PRESENTING COMPLAINT: Chest pain. HISTORY OF PRESENTING COMPLAINT: I saw this patient yesterday on 04/13/2018 on the [facility]. This lady follows with Dr. Alarcon. Patient on 03/30/2018, underwent a cardiac catheterization by Dr. Noam Donald and then subsequently Dr. Marc Goldman did an angioplasty and stenting of the proximal and mid right coronary artery with three drug-eluting stents. Post- procedure patient had done well and patient was going about her day as usual. Yesterday, patient was woken up with anterior chest wall pain. It was like a heaviness across the chest, going up to the right neck. Patient was short of breath. No perspiration. No dizziness. No lightheadedness. Patient said she took three nitroglycerin with some help and did not completely resolve. Patient's chest pain lasted at least 1-1/2 hours and then came back up again. Patient was seen earlier by Dr. Marc Goldman before me and is going to decide further course of action. Patient had been put on nitro paste and patient's troponin was negative. Patient has continued to smoke, though down to few cigarettes a day. Patient also does medical marijuana. REVIEW OF SYSTEMS: CONSTITUTIONAL: None. HEENT: None. RESPIRATORY: Occasional cough. CARDIOVASCULAR: As above. GASTROINTESTINAL: None. GENITOURINARY: None. MUSCULOSKELETAL: Some right hip and low back pain. DERMATOLOGICAL: None. HEMATOLOGICAL: None. LYMPHATICS: None. PSYCHIATRY: None. NEUROLOGICAL: None. PAST MEDICAL HISTORY: Coronary artery disease with stent on 03/30/2018, chronic right hip and back pain, recent right groin hematoma status post cardiac catheterization. PAST SURGICAL HISTORY: Cardiac cath with stent on 03/30/2018 with right groin hematoma, right hip fracture with surgery, hardware, colonoscopy, trachea surgery over 30 years ago, kidney stones removed, ureteral stone, hemorrhoidectomy. PSYCH HISTORY: Depression. SOCIAL HISTORY: She did have a suicide attempt in 2017, none since then. Patient smoked 1-1/2 packs a day for close to 34 years, down to few cigarettes a day. Patient has done prescription drug abuse in the past; not anymore. Patient does smoke 2 marijuana joint a day, has a medical marijuana card. Patient lives with her . FAMILY HISTORY: Mother had pancreatic cancer. HOME MEDICATIONS: 1. Lamictal 75 mg a day. 2. [place] 5 one tablet p.o. t.i.d. p.r.n. 3. Prozac 40 mg p.o. daily. 4. Plavix 75 p.o. daily. 5. Aspirin 81 mg p.o. daily. 6. Abilify 10 mg p.o. daily. ALLERGIES: FLEXERIL, IV CONTRAST DYE, COMPAZINE, CODEINE. PHYSICAL EXAMINATION: Vital signs on presentation, temperature 97.6, pulse 58, respiration 18, blood pressure 157/79, pulse ox 96% on room air. GENERAL APPEARANCE: Thin build, lying in bed, slightly anxious-appearing. EYES: Pupils equal, conjunctivae are normal. HEENT: External appearance of ears and nose normal, oral cavity normal. NECK: JVD not raised. Mass not palpable. RESPIRATORY: Effort normal. LUNGS: Fair entry. CARDIOVASCULAR: First and second sounds are normal, no edema. ABDOMEN: Soft, nontender. Liver and spleen not palpable. LYMPHATIC: No lymph node palpable in neck or axillae. PSYCHIATRY: Alert and oriented x3. Mood and affect normal. NEUROLOGICAL: Pupils equal, cranial nerves grossly intact. Power and sensation grossly intact. INVESTIGATIONS: White count 7.1, hemoglobin 13.5 potassium 4.0, troponin x2 negative. EKG normal sinus rhythm with poor R-wave progression. ASSESSMENT: 1. Unstable angina in a patient with known coronary artery disease. Patient had 3 stents placed on 03/30/2018. Patient now presents with rather cardiac-sounding presentation with poor R-wave progression in the anterior leads and negative troponin. 2. Depression, not otherwise specified. 3. 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 4. Chronic nicotine dependence, patient is a cigarette smoker. PLAN: 1. Home medications are resumed. Patient already on Plavix and aspirin, MARIO inhibitor. Patient was seen by Dr. Marc Goldman earlier today. Further course of action as per him. I will get in order for a lumbar x-ray. 2. Smoking cessation counseling was done with the patient, told the importance of this. Given a nitroglycerin patch and more than 3 minutes was spent on this aspect of the case. MMODL / IJN: [id number] /
--- NOTE | 2018-04-14 15:06 | P.PN ---
Subjective Progress Note Date: 04/14/18 This is a 58-year-old female with history of nicotine dependence, coronary artery disease with recent stenting of the RCA with 3 stents, post procedure she had some hematoma in the right groin but the CT did not reveal any evidence of a pseudoaneurysm. She was discharged uneventfully, feeling the medications that she took at home where her Plavix and aspirin. She presented back to the hospital with symptoms of chest discomfort. Patient was seen in consultation by Dr. Damir Goldman. She was reinitiated on statin, lisinopril. Given her resting bradycardia the beta cosmo was held. Her pain was very atypical in nature, she was seen and examined today. Troponins were negative 3. From our perspective she may be able to be discharged home today and follow-up with Dr. Donald in the office. Objective - Vital Signs Vital signs: Vital Signs Temp 97.8 F 04/14/18 11:00 Pulse 57 L 04/14/18 11:00 Resp 18 04/14/18 11:00 BP 144/77 04/14/18 11:00 Pulse Ox 96 04/14/18 11:00 Intake & Output 04/13/18 04/14/18 04/14/18 18:59 06:59 18:59 Intake Total 240 200 Balance 240 200 Weight 54.431 kg 50.7 kg Intake: Oral 240 200 - Exam PHYSICAL EXAMINATION: GENERAL: HEENT: Head is atraumatic, normocephalic. Pupils equal, round. Sclera anicteric. Conjunctiva are clear. Mucous membranes of the mouth are moist. Neck is supple. There is no elevated jugular venous pressure.] bruit is heard. HEART EXAMINATION: Heart S1, S2 normal. No murmur or gallop heard. CHEST EXAMINATION: Lungs are clear to auscultation and precussion. No chest wall tenderness is noted on palpation or with deep breathing. ABDOMEN: Soft, nontender. Bowel sounds are heard. No organomegaly noted. EXTREMITIES: 2+ peripheral pulses with no evidence of peripheral edema and no calf tenderness noted. NEUROLOGIC patient is awake, alert and oriented -3. . - Labs CBC & Chem 7: 04/13/18 09:21 04/13/18 09:21 Labs: Abnormal Lab Results - Last 24 Hours (Table) 04/13/18 Range/Units 09:21 HDL Cholesterol 85 H (40-60) mg/dL Assessment and Plan Plan: Assessment and plan #1 atypical chest pain #2 Known chronic LAD occlusion with recent stenting of the right coronary artery in 3 areas with drug-eluting stents #3Nicotine dependence #4COPD #5 hypertension #6 hyperlipidemia Plan Patient may be able to be discharged home today from cardiology's perspective. We will make her follow-up appointment to see Dr. Donald in the office post discharge. DNP note has been reviewed, I agree with a documented findings and plan of care. Patient was seen and examined.
[2018-04-14] MEDS ORDERED: ATORVASTATIN 80 MG TAB PO SCH (21:00)
--- NOTE | 2018-04-14 22:24 | DS ---
DISCHARGE SUMMARY DATE OF ADMISSION: 04/13/2018. DATE OF DISCHARGE: 04/14/2018 FINAL DIAGNOSES: 1. Possible unstable angina in a patient known with coronary artery disease. 2. Coronary artery disease with stent placed on 03/30/2018. 3. Depression, not otherwise specified. 4. 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 5. Chronic nicotine dependence. Patient is a cigarette smoker. HOSPITAL COURSE: This patient did have a stent placed by Dr. Marc Goldman on 03/30/2018, presented with rather cardiac-sounding presentation. Dr. Marc Goldman did see the patient. Troponins were negative. We will follow up the patient as an outpatient. I am adding some nitrates. Later, I advised the patient against smoking. EXAM: Lungs are clear. CARDIOVASCULAR: First and second sounds normal. DISCHARGE MEDICATIONS: 1. Prozac 40 mg a day. 2. Abilify 10 mg a day. 3. Aspirin 81 mg a day. 4. Plavix 25 mg a day. 5. [place] 5 one tablet t.i.d. p.r.n. 6. Lamictal 75 mg a day. 7. Lipitor 80 mg q.h.s. 8. Imdur ER 50 mg a day. 9. Zestril 10 mg daily. 10.Nicotine patch. 11.Nitrostat 0.4 sublingual q.5 p.r.n. FOLLOWUP: With Dr. Alarcon on 05/06/2018. Follow up with Dr. Donald on 04/21/2018. MMADONISL / IJN: [id number] /
== END 2018-04-14 13:56 | disposition home or self-care (01) ==
LOC: EC 09:13 → 6SEL 10:49
PROVIDERS: ADMIT Hospitalist; ATTEND Hospitalist
DX: R07.89 Other chest pain (principal); I25.119 Atherosclerotic heart disease of native coronary artery with unspecified angina pectoris; I25.82 Chronic total occlusion of coronary artery; J44.9 Chronic obstructive pulmonary disease, unspecified; F17.210 Nicotine dependence, cigarettes, uncomplicated; R00.1 Bradycardia, unspecified; I10 Essential (primary) hypertension; E78.5 Hyperlipidemia, unspecified; G89.29 Other chronic pain; M25.551 Pain in right hip; M54.5 Low back pain; F32.9 Major depressive disorder, single episode, unspecified; Z79.82 Long term (current) use of aspirin; Z79.02 Long term (current) use of antithrombotics/antiplatelets; Z79.899 Other long term (current) drug therapy; Z91.041 Radiographic dye allergy status; Z88.5 Allergy status to narcotic agent; Z88.8 Allergy status to other drugs, medicaments and biological substances; Z91.048 Other nonmedicinal substance allergy status; Z86.59 Personal history of other mental and behavioral disorders; Z87.442 Personal history of urinary calculi; Z80.0 Family history of malignant neoplasm of digestive organs
CPT/HCPCS: 99291 ×2; 96374; 36415; 93005; 80061; 80053; 82550; 82553; 83735; 84484; 85025; 85610; 85730; 71046; G0378 ×2; S4990; J2405

== ENCOUNTER 2018-06-21 15:23 | Inpatient (IN) | payer BC, MEDICARE ==
[2018-06-21] MEDS ORDERED: ASPIRIN 81 MG PO STA (15:39)
[2018-06-21] MEDS ORDERED: NITROGLYCERIN OINT 1 INCH/GM PACKET TOPICAL STA (15:39)
--- NOTE | 2018-06-21 15:42 | ED ---
General Adult HPI - General Source: patient, RN notes reviewed Mode of arrival: wheelchair Limitations: no limitations <Yaakov Wilkins - Last Filed: 06/21/18 16:23> <Jonna Asencio - Last Filed: 06/21/18 17:13> - General Chief complaint: Chest Pain Stated complaint: Chest pain Time Seen by Provider: 06/21/18 15:25 - History of Present Illness Initial comments: This is a 58-year-old female presents emergency Department complaining about chest pain started this morning. Patient states she's taken 5 nitroglycerin since she had the chest pain. Patient states every time she takes it increases the pain but it always returns. Patient states she's also been short of breath with the pain. Patient denies any radiation of the pain. Patient states it is much improved at this time but she still feels a little pressure in the center of her chest. Patient states she has high blood pressure like a straw and continues to smoke. Patient states she's also had 3 stents placed in the past. Patient states this pain is similar to the pain she had when she had her stents placed. Patient denies any recent fever chills or cough. Patient denies abdominal pain patient denies nausea vomiting or diarrhea. Patient denies headache patient denies numbness weakness. Patient denies lightheadedness or dizziness or near syncopal episode. (Yaakov Wilkins) - Related Data Home Medications Medication Instructions Recorded Confirmed ARIPiprazole [Abilify] 10 mg PO DAILY 03/24/18 06/21/18 lamoTRIgine [LaMICtal] 75 mg PO DAILY 04/13/18 06/21/18 Isosorbide Mononitrate ER [Imdur] 30 mg PO DAILY 06/21/18 06/21/18 Previous Rx's Medication Instructions Recorded FLUoxetine HCL [PROzac] 40 mg PO DAILY #14 cap 11/16/17 Aspirin [Adult Low Dose Aspirin EC] 81 mg PO DAILY 30 Days #30 03/31/18 tablet. Clopidogrel [Plavix] 75 mg PO DAILY 30 Days #30 tablet 03/31/18 Atorvastatin [Lipitor] 80 mg PO HS #30 tab 04/14/18 Lisinopril [Zestril] 10 mg PO DAILY #30 tab 04/14/18 Nitroglycerin Sl Tabs [Nitrostat] 0.4 mg SUBLINGUAL Q5M PRN #25 tab 04/14/18 Allergies Allergy/AdvReac Type Severity Reaction Status Date / Time cyclobenzaprine HCl Allergy Anaphylaxis Verified 06/21/18 16:25 [From Flexeril] Iodinated Contrast- Oral and Allergy Rash/Hives Verified 06/21/18 16:25 IV Dye iodine Allergy Rash/Hives, Verified 06/21/18 16:25 flushed,cris sea prochlorperazine edisylate Allergy Anaphylaxis Verified 06/21/18 16:25 [From Compazine] prochlorperazine maleate Allergy Anaphylaxis Verified 06/21/18 16:25 [From Compazine] codeine AdvReac Nausea & Verified 06/21/18 16:25 Vomiting Review of Systems ROS Other: All systems not noted in ROS Statement are negative. <Yaakov Wilkins - Last Filed: 06/21/18 16:23> ROS Other: All systems not noted in ROS Statement are negative. <Jonna Asencio - Last Filed: 06/21/18 17:13> ROS Statement: Those systems with pertinent positive or pertinent negative responses have been documented in the HPI. Past Medical History Past Medical History: Coronary Artery Disease (CAD), Myocardial Infarction (DE) Additional Past Medical History / Comment(s): Recent falls-"I feel off balance. ", chronic R hip and back pain, recent R groin hematoma post PCI/stent, past arm infection (cannot recall laterality) pt states she was treated for 3 years and had picc lines-states it was not MRSA/VRE. History of Any Multi-Drug Resistant Organisms: None Reported Past Surgical History: Heart Catheterization With Stent, Orthopedic Surgery Additional Past Surgical History / Comment(s): 03/30/18 PCI with stents then post R groin hematoma, R hip fracture with surgery/hardware, colonoscopy, trachea damage with surgical repair 30 yrs ago, picc lines, kidney stone removal , ureteral stent which she believes has since been removed, hemorrhoidectomy. Past Anesthesia/Blood Transfusion Reactions: No Reported Reaction Date of Last Stent Placement:: 03/30/18 Past Psychological History: Depression Smoking Status: Current every day smoker Past Alcohol Use History: None Reported Past Drug Use History: None Reported - Past Family History Mother Family Medical History: Cancer Additional Family Medical History / Comment(s): Mother is from pancreatic cancer. Father Family Medical History: Cancer Additional Family Medical History / Comment(s): Father is . Pt thinks he passed from cancer but does not know what type. <Yaakov Wilkins - Last Filed: 06/21/18 16:23> General Exam Limitations: no limitations <Yaakov Wilkins - Last Filed: 06/21/18 16:23> <Jonna Asencio - Last Filed: 06/21/18 17:13> - General Exam Comments Initial Comments: GENERAL: Patient is well-developed and well-nourished. Patient is nontoxic and well- hydrated and is in mild distress. ENT: Neck is soft and supple. No significant lymphadenopathy is noted. Oropharynx is clear. Moist mucous membranes. Neck has full range of motion without eliciting any pain. EYES: The sclera were anicteric and conjunctiva were pink and moist. Extraocular movements were intact and pupils were equal round and reactive to light. Eyelids were unremarkable. PULMONARY: Unlabored respirations. Good breath sounds bilaterally. No audible rales rhonchi or wheezing was noted. CARDIOVASCULAR: There is a regular rate and rhythm without any murmurs gallops or rubs. ABDOMEN: Soft and nontender with normal bowel sounds. No palpable organomegaly was noted. There is no palpable pulsatile mass. SKIN: Skin is clear with no lesions or rashes and otherwise unremarkable. NEUROLOGIC: Patient is alert and oriented x3. Cranial nerves II through XII are grossly intact. Motor and sensory are also intact. Normal speech, volume and content. Symmetrical smile. MUSCULOSKELETAL: Normal extremities with adequate strength and full range of motion. No lower extremity swelling or edema. No calf tenderness. LYMPHATICS: No significant lymphadenopathy is noted PSYCHIATRIC: Normal psychiatric evaluation. Normal interpersonal interactions appears functionally intact in deals appropriately with others. No signs of depression. No signs of anxiety. (Yaakov Wilkins) Course <Yaakov Wilkins - Last Filed: 06/21/18 16:23> <Jonna Asencio - Last Filed: 06/21/18 17:13> Vital Signs 06/21/18 06/21/18 15:27 16:27 Temperature 98.5 F Pulse Rate 62 51 L Respiratory 20 18 Rate Blood Pressure 163/96 153/84 O2 Sat by Pulse 96 99 Oximetry Patient was reassessed at term 1700, CBC, INR, comp his metabolic panel, troponin are unremarkable chest x-ray showed some prominent vasculature considering her history of heart disease and [address] and has risk factors she are to be admitted observation to Dr. Pederson was discussed with the patient and Dr. Pederson both agreed with that plan. When I was leaving the room after discussing it heart disease she requested that isn't any better he could take a look at her esophagus because she has a hard time swallowing even liquids considering her history of smoking, rule out any esophageal pathology I will consult Dr. Hobson for possible scope. (Jonna Asencio) Medical Decision Making - Lab Data Result diagrams: 06/21/18 15:48 06/21/18 15:48 <Yaakov Wilkins - Last Filed: 06/21/18 16:23> - Lab Data Result diagrams: 06/21/18 15:48 06/21/18 15:48 <Jonna Asencio - Last Filed: 06/21/18 17:13> - Medical Decision Making EKG shows sinus bradycardia 52 bpm CA interval is on a 44 QTC 6 QT interval 444 QTC is 02/13/2012. Patient's EKG shows no ST segment elevation or depression or T wave abnormalities are noted. Dr. Marsh be taking over the care of this patient at 4:30. (Yaakov Wilkins) - Lab Data Lab Results 06/21/18 06/21/18 06/21/18 Range/Units 15:48 15:48 15:48 WBC 4.8 (3.8-10.6) k/uL RBC 4.32 (3.80-5.40) m/uL Hgb 13.8 (11.4-16.0) gm/dL Hct 42.8 (34.0-46.0) % MCV 99.2 (80.0-100.0) fL MCH 31.9 (25.0-35.0) pg MCHC 32.1 (31.0-37.0) g/dL RDW 12.9 (11.5-15.5) % Plt Count 156 (150-450) k/uL Neutrophils % 55 % Lymphocytes % 35 % Monocytes % 5 % Eosinophils % 1 % Basophils % 1 % Neutrophils # 2.7 (1.3-7.7) k/uL Lymphocytes # 1.7 (1.0-4.8) k/uL Monocytes # 0.3 (0-1.0) k/uL Eosinophils # 0.1 (0-0.7) k/uL Basophils # 0.0 (0-0.2) k/uL PT (9.0-12.0) sec INR (<1.2) APTT (22.0-30.0) sec Sodium 139 (137-145) mmol/L Potassium 4.1 (3.5-5.1) mmol/L Chloride 106 (98-107) mmol/L Carbon Dioxide 26 (22-30) mmol/L Anion Gap 7 mmol/L BUN 10 (7-17) mg/dL Creatinine 0.80 (0.52-1.04) mg/dL Est GFR (CKD-EPI)AfAm >90 (>60 ml/min/1.73 sqM) Est GFR (CKD-EPI)NonAf 82 (>60 ml/min/1.73 sqM) Glucose 93 (74-99) mg/dL Calcium 9.5 (8.4-10.2) mg/dL Magnesium 1.8 (1.6-2.3) mg/dL Total Bilirubin 0.6 (0.2-1.3) mg/dL AST 39 H (14-36) U/L ALT 39 (9-52) U/L Alkaline Phosphatase 70 (38-126) U/L Total Creatine Kinase 234 H (30-135) U/L CK-MB (CK-2) 4.7 H* (0.0-2.4) ng/mL CK-MB (CK-2) Rel Index 2.0 Troponin I <0.012 (0.000-0.034) ng/mL Total Protein 6.8 (6.3-8.2) g/dL Albumin 4.3 (3.5-5.0) g/dL 06/21/18 Range/Units 15:48 WBC (3.8-10.6) k/uL RBC (3.80-5.40) m/uL Hgb (11.4-16.0) gm/dL Hct (34.0-46.0) % MCV (80.0-100.0) fL MCH (25.0-35.0) pg MCHC (31.0-37.0) g/dL RDW (11.5-15.5) % Plt Count (150-450) k/uL Neutrophils % % Lymphocytes % % Monocytes % % Eosinophils % % Basophils % % Neutrophils # (1.3-7.7) k/uL Lymphocytes # (1.0-4.8) k/uL Monocytes # (0-1.0) k/uL Eosinophils # (0-0.7) k/uL Basophils # (0-0.2) k/uL PT 10.3 (9.0-12.0) sec INR 1.1 (<1.2) APTT 26.1 (22.0-30.0) sec Sodium (137-145) mmol/L Potassium (3.5-5.1) mmol/L Chloride (98-107) mmol/L Carbon Dioxide (22-30) mmol/L Anion Gap mmol/L BUN (7-17) mg/dL Creatinine (0.52-1.04) mg/dL Est GFR (CKD-EPI)AfAm (>60 ml/min/1.73 sqM) Est GFR (CKD-EPI)NonAf (>60 ml/min/1.73 sqM) Glucose (74-99) mg/dL Calcium (8.4-10.2) mg/dL Magnesium (1.6-2.3) mg/dL Total Bilirubin (0.2-1.3) mg/dL AST (14-36) U/L ALT (9-52) U/L Alkaline Phosphatase (38-126) U/L Total Creatine Kinase (30-135) U/L CK-MB (CK-2) (0.0-2.4) ng/mL CK-MB (CK-2) Rel Index Troponin I (0.000-0.034) ng/mL Total Protein (6.3-8.2) g/dL Albumin (3.5-5.0) g/dL Disposition <Yaakov Wilkins - Last Filed: 06/21/18 16:23> <Jonna Asencio - Last Filed: 06/21/18 17:13> Clinical Impression: Chest pain, History of coronary artery disease, Difficulty swallowing solids Disposition: ADMITTED IP TO THIS HOSP Condition: Good Referrals: Srini Alarcon MD [Primary Care Provider] - 1-2 days
[2018-06-21 15:56] LABS: Basophils % (A) 1 %; Eosinophils # (A) 0.1 k/uL (0-0.7); Eosinophils % (A) 1 %; HCT 42.8 % (34.0-46.0); HGB 13.8 gm/dL (11.4-16.0); Lymphocytes # (A) 1.7 k/uL (1.0-4.8); Lymphocytes % (A) 35 %; MCH 31.9 pg (25.0-35.0); MCHC 32.1 g/dL (31.0-37.0); MCV 99.2 fL (80.0-100.0); Mean Platelet Volume 7.8; Monocytes # (A) 0.3 k/uL (0-1.0); Monocytes % (A) 5 %; Neutrophils # (A) 2.7 k/uL (1.3-7.7); Neutrophils % (A) 55 %; Platelet Count 156 k/uL (150-450); RBC 4.32 m/uL (3.80-5.40); RDW 12.9 % (11.5-15.5); WBC 4.8 k/uL (3.8-10.6)
[2018-06-21 16:05] LABS: ALT 39 U/L (9-52); AST 39 U/L (14-36); Albumin 4.3 g/dL (3.5-5.0); Alkaline Phosphatase 70 U/L (38-126); Anion Gap 7 mmol/L; Blood Urea Nitrogen 10 mg/dL (7-17); Calcium 9.5 mg/dL (8.4-10.2); Carbon Dioxide 26 mmol/L (22-30); Chloride 106 mmol/L (98-107); Glucose 93 mg/dL (74-99); Potassium 4.1 mmol/L (3.5-5.1); Sodium 139 mmol/L (137-145); Total Bilirubin 0.6 mg/dL (0.2-1.3); Total Protein 6.8 g/dL (6.3-8.2)
[2018-06-21 16:07] LABS: Magnesium 1.8 mg/dL (1.6-2.3)
[2018-06-21 16:11] LABS: INR 1.1 (<1.2); Partial Thromboplastin Time 26.1 sec (22.0-30.0); Prothrombin Time 10.3 sec (9.0-12.0)
--- NOTE | 2018-06-21 16:14 | XR ---
EXAMINATION TYPE: XR chest 2V DATE OF EXAM: 06/21/2018 COMPARISON: 04/13/2018 HISTORY: Chest pain. Recently placed coronary artery stent. TECHNIQUE: Frontal and lateral views of the chest are obtained. FINDINGS: Postsurgical changes of the mediastinum are noted with dehiscence of the most inferior med iastinal wire, similar to the prior. Mild pulmonary vascular congestion is seen with cephalization. T here is no focal air space opacity, pleural effusion, or pneumothorax seen. The cardiac silhouette s ize is upper limits of normal. The osseous structures are intact. IMPRESSION: Mild vascular prominence suggesting mild pulmonary vascular congestion. No focal consoli dation or pleural effusion.
[2018-06-21 16:15] LABS: Creatine Kinase 234 U/L (30-135)
[2018-06-21 16:29] LABS: Troponin I <0.012 ng/mL (0.000-0.034)
[2018-06-21 16:30] LABS: Creatine Kinase MB 4.7 ng/mL (0.0-2.4)
[2018-06-21] MEDS ORDERED: FUROSEMIDE 10 MG/ML 2 ML VIAL IV ONE (17:03)
[2018-06-21] MEDS ORDERED: NITROGLYCERIN SL TABS 0.4 MG TAB SUBLINGUAL PRN (17:23)
[2018-06-21] MEDS ORDERED: HYDROmorphone 1 MG/ML 1 ML SYRINGE IVP STA (17:58)
[2018-06-21] MEDS ORDERED: HYDROmorphone 0.5 MG/0.5 ML SYRINGE IVP STA (17:58)
[2018-06-21 22:35] LABS: Creatine Kinase 199 U/L (30-135)
[2018-06-21 22:49] LABS: Troponin I <0.012 ng/mL (0.000-0.034)
[2018-06-21 22:53] LABS: Creatine Kinase MB 4.5 ng/mL (0.0-2.4)
[2018-06-21] MEDS ORDERED: HEPARIN SODIUM,PORCINE 5,000 UNIT/ML 1 ML VIAL IV PRN (23:46)
[2018-06-21] MEDS ORDERED: HEPARIN SODIUM,PORCINE 5,000 UNIT/ML 1 ML VIAL IV ONE (23:46)
[2018-06-21] MEDS ORDERED: IPRATROPIUM-ALBUTEROL 3 ML NEB INHALATION PRN (23:46)
[2018-06-21] MEDS ORDERED: ALPRAZolam 0.25 MG TAB PO PRN (23:46)
[2018-06-21] MEDS: NITROGLYCERIN SL TABS 0.4 MG TAB SUBLINGUAL PRN (23:48)
[2018-06-21 23:50] LABS: Cholesterol 194 mg/dL (<200); HDL Cholesterol 76 mg/dL (40-60); LDL Cholesterol,Calculated 107 mg/dL (0-99); Triglycerides 57 mg/dL (<150)
[2018-06-22 00:24] LABS: Basophils % (A) 1 %; Eosinophils # (A) 0.2 k/uL (0-0.7); Eosinophils % (A) 3 %; HCT 46.1 % (34.0-46.0); HGB 15.2 gm/dL (11.4-16.0); Lymphocytes # (A) 2.3 k/uL (1.0-4.8); Lymphocytes % (A) 36 %; MCH 32.6 pg (25.0-35.0); MCHC 32.9 g/dL (31.0-37.0); MCV 98.8 fL (80.0-100.0); Mean Platelet Volume 7.9; Monocytes # (A) 0.3 k/uL (0-1.0); Monocytes % (A) 5 %; Neutrophils # (A) 3.4 k/uL (1.3-7.7); Neutrophils % (A) 54 %; Platelet Count 164 k/uL (150-450); RBC 4.66 m/uL (3.80-5.40); RDW 12.7 % (11.5-15.5); WBC 6.4 k/uL (3.8-10.6)
[2018-06-22] MEDS ORDERED: TEMAZEPAM 15 MG CAP PO PRN (00:30)
[2018-06-22 00:33] LABS: INR 1.1 (<1.2); Partial Thromboplastin Time 26.4 sec (22.0-30.0); Prothrombin Time 10.5 sec (9.0-12.0)
[2018-06-22] MEDS: ATORVASTATIN 80 MG TAB PO SCH ×2 (01:24→23:37)
[2018-06-22] MEDS: HEPARIN SOD,PORK IN 0.45% NACL 25,000 UNIT in 0.45% NACL 1 500ML.BAG IV SCH (01:27)
[2018-06-22] MEDS: NICOTINE 14MG/24HR PATCH TRANSDERM SCH ×2 (01:58→09:12)
--- NOTE | 2018-06-22 03:08 | HP ---
HISTORY AND PHYSICAL DATE OF SERVICE: 06/21/2018 CHIEF COMPLAINT: Chest pain. HISTORY OF PRESENT ILLNESS: This 58-year-old woman with a past medical history of multiple medical problems including CAD stent, history of myocardial infarction, history of recent falls, DJD, history of depression, being followed by Dr. Alarcon in the outpatient setting also had a previous also admitted recently. The patient is now complaining of chest pain which is felt in the anterior part of the chest since this morning which is not going away even after 5 Nitro tablets. The pain is pressure type without radiation. There was also nausea and vomiting. The patient came to [facility] and was admitted for further evaluation. Patient continues to smoke. PAST MEDICAL HISTORY: CAD stent, myocardial infarction, depression and smoking. MEDICATIONS: Prior to admission home medications are: 1. Lamictal 75 mg p.o. daily. 2. Nitrostat 0.4 sublingual p.r.n. 3. Zestril 10 mg p.o. daily. 4. Imdur 30 mg p.o. daily. 5. Prozac 40 mg p.o. daily. 6. Plavix 75 mg daily. 7. Lipitor 80 mg q.h.s. 8. Aspirin 81 mg p.o. daily. 9. Abilify 10 mg p.o. daily. ALLERGIES: ARE FLEXERIL, IODINATED CONTRAST DYES, COMPAZINE, CODEINE. FAMILY HISTORY: History of pancreatic cancer in the family. SOCIAL HISTORY: History of smoking. History of THC. REVIEW OF SYSTEMS: ENT: No diminished vision. No diminished hearing. CARDIAC: As mentioned earlier. RESPIRATORY: As mentioned earlier. GI: No nausea or vomiting. no dysuria or hematuria. NERVOUS SYSTEM: No numbness or weakness. ALLERGY/IMMUNOLOGY: No asthma or hay fever. MUSCULOSKELETAL: As mentioned earlier. HEMATOLOGY/ONCOLOGY: No history of anemia. ENDOCRINE: No history of diabetes or hypothyroidism. CONSTITUTIONAL: As mentioned earlier. DERMATOLOGY: Negative. RHEUMATOLOGY: Negative. PSYCHIATRIC: As mentioned earlier. PHYSICAL EXAMINATION: GENERAL: The patient is alert, oriented times three. VITAL SIGNS: Pulse 52. Blood pressure 105/64, respirations 16, temperature 97.4 , pulse ox 98% on 2 L. HEENT is conjunctivae normal. Oral mucosa moist./ NECK: No jugular venous distention. No lymph node enlargement. CARDIOVASCULAR: S1, S2 muffled. RESPIRATION: Breath sounds diminished in the bases. A few bilateral scattered rhonchi and crackles. ABDOMEN: Soft, nontender. No mass palpable. LEGS: No edema. No swelling. NERVOUS SYSTEM: Higher functions as mentioned earlier. Moves all 4 limbs. No focal motor or sensory deficits. LYMPHATICS: No lymph nodes palpable in the neck, axilla or groin. SKIN: No ulcer, rash or bleeding. LABS: CBC, BMP, CMP within normal limits. Creatine kinase 234. ASSESSMENT: 1. Chest pain, possible unstable angina. 2. Increased creatine kinase with normal troponins. 3. Chronic obstructive pulmonary disease. 4. Continued ongoing nicotine dependence. 5. History of coronary artery disease/stent. 6. History of falls. 7. Degenerative joint disease. 8. History of depression. 9. History of THC. RECOMMENDATIONS AND DISCUSSION: In this 58-year-old woman who presented with multiple complex medical issues, we will monitor the patient closely. Continue the current medications. Continue symptomatic treatment. Otherwise, unstable angina protocol. Antiplatelet agents. Resume the home medications. Symptomatic treatment. Cardiology consultation. The prognosis guarded because of multiple complex medical issues. Further recommendations to follow. A copy of dictation being forwarded to Dr. Alarcon who is the primary care physician. MMODL / IJN: [id number] / EFE
[2018-06-22 03:46] LABS: Basophils % (A) 1 %; Eosinophils # (A) 0.2 k/uL (0-0.7); Eosinophils % (A) 3 %; HCT 45.4 % (34.0-46.0); Lymphocytes # (A) 1.8 k/uL (1.0-4.8); Lymphocytes % (A) 37 %; MCH 32.6 pg (25.0-35.0); MCHC 33.1 g/dL (31.0-37.0); MCV 98.4 fL (80.0-100.0); Mean Platelet Volume 7.8; Monocytes # (A) 0.3 k/uL (0-1.0); Monocytes % (A) 6 %; Neutrophils # (A) 2.6 k/uL (1.3-7.7); Neutrophils % (A) 52 %; Platelet Count 158 k/uL (150-450); RBC 4.61 m/uL (3.80-5.40); RDW 12.7 % (11.5-15.5)
[2018-06-22 04:13] LABS: Creatine Kinase 151 U/L (30-135)
[2018-06-22 04:26] LABS: Troponin I <0.012 ng/mL (0.000-0.034)
[2018-06-22 04:31] LABS: Creatine Kinase MB 4.9 ng/mL (0.0-2.4)
[2018-06-22] MEDS: NITROGLYCERIN SL TABS 0.4 MG TAB SUBLINGUAL PRN (04:31)
[2018-06-22] MEDS: HYDROmorphone 1 MG/ML 1 ML SYRINGE IVP PRN ×3 (04:50→23:37)
[2018-06-22] MEDS: PANTOPRAZOLE 40 MG TABLET PO SCH (06:22)
[2018-06-22] MEDS: IPRATROPIUM-ALBUTEROL 3 ML NEB INHALATION SCH ×3 (07:52→19:15)
--- NOTE | 2018-06-22 08:10 | P.CRDCN ---
History of Present Illness Consult date: 06/22/18 Requesting physician: Miracle Pederson Consult reason: chest pain Chief complaint: Chest pain History of present illness: This is a 58-year-old female with known history of coronary artery disease, patient was in the hospital in March of this year, at which time she underwent a cardiac catheterization which revealed three-vessel coronary artery disease with a chronically occluded LAD, significant stenosis in the RCA and a moderate lesion in the proximal circumflex, she underwent angioplasty and stenting of the right coronary artery at that time. Patient follows with Dr. Hobson in the office, prior to this cardiac catheterization she had an abnormal stress test in the LAD distribution. She had presented back to the hospital in April with symptoms of chest discomfort, she was seen in consultation at that time by Dr. Damir Goldman, discharged home on medical therapy. Patient presents back to the hospital on this occasion with symptoms of chest pressure and heaviness which started while she was painting. Patient became quite short of breath with these symptoms, she states that the pressure was very intense, much worse than her initial presentation here. She took a total of 4 sublingual nitroglycerin, and ultimately came to the emergency room for further evaluation. Initial EKG on presentation here showed a normal sinus rhythm with ST-T wave changes noted in the anterior leads. Subsequent EKG showed normal sinus rhythm with changes in the anterior leads, primarily V1 and V2. Chest x- ray showed mild vascular prominence suggesting mild vascular congestion. Blood pressure on arrival here 162/90 with a heart rate in the 60s, 96% on room air. Blood pressure this morning 110/60 with a heart rate in the 50s to 60s, 99% on room air. White blood cell count 5.0, hemoglobin 15, platelet count 158. Sodium 139, potassium 4.1, BUN 10, creatinine 0.8. Troponins negative 3. Cholesterol 194, LDL 107, HDL 76, triglycerides 57. Patient's home medications include Zestril 10 mg daily, Imdur 30 mg daily, Plavix 75 mg daily, baby aspirin , and Lipitor 80 mg daily, patient states she has been taking her medications at home, she continues to smoke, but states she is only smoking 4 cigarettes per day. At the time of my examination this morning she is currently chest pain -free. Past Medical History Past Medical History: Coronary Artery Disease (CAD), Myocardial Infarction (SD) Additional Past Medical History / Comment(s): Recent falls-"I feel off balance. ", chronic R hip and back pain, recent R groin hematoma post PCI/stent, past arm infection (cannot recall laterality) pt states she was treated for 3 years and had picc lines-states it was not MRSA/VRE. History of Any Multi-Drug Resistant Organisms: None Reported Past Surgical History: Heart Catheterization With Stent, Orthopedic Surgery Additional Past Surgical History / Comment(s): 03/30/18 PCI with stents then post R groin hematoma, R hip fracture with surgery/hardware, colonoscopy, trachea damage with surgical repair 30 yrs ago, picc lines, kidney stone removal , ureteral stent which she believes has since been removed, hemorrhoidectomy. Past Anesthesia/Blood Transfusion Reactions: No Reported Reaction Date of Last Stent Placement:: 03/30/18 Past Psychological History: Depression Smoking Status: Current every day smoker Past Alcohol Use History: None Reported Past Drug Use History: None Reported - Past Family History Mother Family Medical History: Cancer Additional Family Medical History / Comment(s): Mother is from pancreatic cancer. Father Family Medical History: Cancer Additional Family Medical History / Comment(s): Father is . Pt thinks he passed from cancer but does not know what type. Medications and Allergies Home Medications Medication Instructions Recorded Confirmed Type FLUoxetine HCL [PROzac] 40 mg PO DAILY #14 cap 11/16/17 06/21/18 Rx ARIPiprazole [Abilify] 10 mg PO DAILY 03/24/18 06/21/18 History Aspirin [Adult Low Dose Aspirin EC] 81 mg PO DAILY 30 Days #30 03/31/18 Rx tablet. Clopidogrel [Plavix] 75 mg PO DAILY 30 Days #30 tablet 03/31/18 06/21/18 Rx lamoTRIgine [LaMICtal] 75 mg PO DAILY 04/13/18 06/21/18 History Atorvastatin [Lipitor] 80 mg PO HS #30 tab 04/14/18 06/21/18 Rx Lisinopril [Zestril] 10 mg PO DAILY #30 tab 04/14/18 06/21/18 Rx Nitroglycerin Sl Tabs [Nitrostat] 0.4 mg SUBLINGUAL Q5M PRN #25 tab 04/14/1810/27 Rx Isosorbide Mononitrate ER [Imdur] 30 mg PO DAILY 06/21/18 06/21/18 History Allergies Allergy/AdvReac Type Severity Reaction Status Date / Time cyclobenzaprine HCl Allergy Anaphylaxis Verified 06/21/18 16:25 [From Flexeril] Iodinated Contrast- Oral and Allergy Rash/Hives Verified 06/21/18 16:25 IV Dye iodine Allergy Rash/Hives, Verified 06/21/18 16:25 flushed,cris sea prochlorperazine edisylate Allergy Anaphylaxis Verified 06/21/18 16:25 [From Compazine] prochlorperazine maleate Allergy Anaphylaxis Verified 06/21/18 16:25 [From Compazine] codeine AdvReac Nausea & Verified 06/21/18 16:25 Vomiting Physical Exam Vitals: Vital Signs Temp Pulse Resp BP Pulse Ox 06/22/18 07:39 97.5 F L 52 L 18 110/62 99 06/22/18 06:20 48 L 16 98 06/22/18 04:32 52 L 16 131/66 06/22/18 01:37 50 L 16 06/21/18 22:15 46 L 16 109/56 99 06/21/18 19:15 97.4 F L 52 L 16 105/64 98 06/21/18 18:24 49 L 16 147/75 99 06/21/18 17:20 47 L 16 136/67 99 06/21/18 16:27 51 L 18 153/84 99 06/21/18 15:27 98.5 F 62 20 163/96 96 Intake and Output 06/21/18 06/22/18 06/22/18 22:59 06:59 14:59 Intake Total 20 Balance 20 Intake: Amount of Fluid Infused ( 20 ml) Other: Weight 58.967 kg PHYSICAL EXAMINATION: GENERAL: 58-year-old female in no acute distress at the time of my examination HEENT: Head is atraumatic, normocephalic. Pupils equal, round. Sclera anicteric. Conjunctiva are clear. Mucous membranes of the mouth are moist. Neck is supple. There is no elevated jugular venous pressure.] bruit is heard. HEART EXAMINATION: Heart S1, S2 normal. No murmur or gallop heard. CHEST EXAMINATION: Lungs reveal scattered coarse rhonchi and wheezing throughout. ABDOMEN: Soft, nontender. Bowel sounds are heard. No organomegaly noted. EXTREMITIES: 2+ peripheral pulses with no evidence of peripheral edema and no calf tenderness noted. NEUROLOGIC patient is awake, alert and oriented ?-3. . Results 06/22/18 03:28 06/21/18 15:48 Cardiac Enzymes 06/21/18 06/21/18 06/21/18 Range/Units 15:48 15:48 22:03 AST 39 H (14-36) U/L CK-MB (CK-2) 4.7 H* 4.5 H* (0.0-2.4) ng/mL Troponin I <0.012 <0.012 (0.000-0.034) ng/mL 06/22/18 Range/Units 03:28 AST (14-36) U/L CK-MB (CK-2) 4.9 H* (0.0-2.4) ng/mL Troponin I <0.012 (0.000-0.034) ng/mL Coagulation 06/21/18 06/22/18 06/22/18 Range/Units 15:48 00:03 03:28 PT 10.3 10.5 (9.0-12.0) sec APTT 26.1 26.4 55.6 H (22.0-30.0) sec Lipids 06/21/18 Range/Units 15:48 Triglycerides 57 (<150) mg/dL Cholesterol 194 (<200) mg/dL HDL Cholesterol 76 H (40-60) mg/dL CBC 06/21/18 06/22/18 06/22/18 Range/Units 15:48 00:03 03:28 WBC 4.8 6.4 5.0 (3.8-10.6) k/uL RBC 4.32 4.66 4.61 (3.80-5.40) m/uL Hgb 13.8 15.2 15.0 (11.4-16.0) gm/dL Hct 42.8 46.1 H 45.4 (34.0-46.0) % Plt Count 156 164 158 (150-450) k/uL Comprehensive Metabolic Panel 06/21/18 Range/Units 15:48 Sodium 139 (137-145) mmol/L Potassium 4.1 (3.5-5.1) mmol/L Chloride 106 (98-107) mmol/L Carbon Dioxide 26 (22-30) mmol/L BUN 10 (7-17) mg/dL Creatinine 0.80 (0.52-1.04) mg/dL Glucose 93 (74-99) mg/dL Calcium 9.5 (8.4-10.2) mg/dL AST 39 H (14-36) U/L ALT 39 (9-52) U/L Alkaline Phosphatase 70 (38-126) U/L Total Protein 6.8 (6.3-8.2) g/dL Albumin 4.3 (3.5-5.0) g/dL Current Medications Generic Name Dose Route Start Last Admin Trade Name Freq PRN Reason Stop Dose Admin Albuterol/Ipratropium 3 ml 06/22/18 08:00 06/22/18 07:52 Duoneb 0.5 Mg-3 Mg/3 Ml Soln INHALATION 3 ml RT-TID DANA Administration Albuterol/Ipratropium 3 ml 06/21/18 23:46 Duoneb 0.5 Mg-3 Mg/3 Ml Soln INHALATION RT-TID PRN Shortness Of Breath Or Wheezing Alprazolam 0.25 mg 06/21/18 23:46 Xanax PO TID PRN Anxiety Aripiprazole 10 mg 06/22/18 09:00 Abilify PO DAILY [facility] Aspirin 325 mg 06/22/18 09:00 Aspirin PO DAILY [facility] Atorvastatin Calcium 80 mg 06/22/18 00:30 06/22/18 01:24 Lipitor PO 80 mg HS [facility] Administration Clopidogrel Bisulfate 75 mg 06/22/18 09:00 Plavix PO DAILY [facility] Fluoxetine HCl 40 mg 06/22/18 09:00 Prozac PO DAILY [facility] Heparin Sodium (Porcine) 0 unit 06/21/18 23:46 Heparin IV PER PROTOCOL PRN Low PTT Protocol Hydromorphone HCl 0.5 mg 06/21/18 17:58 06/22/18 04:50 Dilaudid IVP 0.5 mg Q3HR PRN Administration Pain Heparin Sodium/Sodium Chloride 500 mls @ 14.15 mls/hr 06/21/18 23:45 01:27 25,000 unit/ Sodium Chloride IV 12 units/kg/hr .Q24H DANA 14.15 mls/hr Administration Protocol 12 UNITS/KG/HR Isosorbide Mononitrate 30 mg 06/22/18 09:00 Imdur PO DAILY DANA Lamotrigine 75 mg 06/22/18 09:00 Lamictal PO DAILY DANA Lisinopril 10 mg 06/22/18 09:00 Zestril PO DAILY DANA Nicotine 1 patch 06/22/18 00:30 06/22/18 01:58 Habitrol 14mg/24hr Patch TRANSDERM Not Given DAILY DANA Nitroglycerin 0.4 mg 06/21/18 17:23 Nitrostat SUBLINGUAL Q5M PRN Chest Pain Pantoprazole Sodium 40 mg 06/22/18 07:30 06/22/18 06:22 Protonix PO 40 mg AC-BRKFST DANA Administration Temazepam 15 mg 06/22/18 00:30 Restoril PO HS PRN Insomnia Intake and Output 06/21/18 06/22/18 06/22/18 22:59 06:59 14:59 Intake Total 20 Balance 20 Intake: Amount of Fluid Infused ( 20 ml) Other: Weight 58.967 kg 06/22/18 03:28 06/21/18 15:48 EKG Interpretations (text) EKG shows normal sinus rhythm with ST-T wave changes noted in the anterior leads. Assessment and Plan Plan: Assessment and plan #1 symptoms of chest pressure and heaviness suggestive of angina, troponins negative 3. EKG shows normal sinus rhythm with ST-T wave changes noted in the anterior leads. #2 known history of coronary artery disease with RCA stenting in March of this year, patient was noted at that time also to have a totally occluded LAD and moderate disease in the circumflex #3 nicotine dependence #4 hypertension #5 hyperlipidemia Plan We will obtain an echocardiogram with Doppler study. Continue aspirin, Lipitor , Plavix, IV heparin, lisinopril, nicotine patch. Patient has been advised that she may need to undergo repeat cardiac catheterization, the risks and benefits were again explained to the patient in detail, she is willing to proceed. Further recommendations will be based on these findings and the patient's clinical course. DNP note has been reviewed, I agree with a documented findings and plan of care. Patient was seen and examined.
[2018-06-22] MEDS: ARIPiprazole 10 MG TAB PO SCH (09:11)
[2018-06-22] MEDS: CLOPIDOGREL 75 MG TAB PO SCH (09:11)
[2018-06-22] MEDS: FLUoxetine HCL 20 MG CAP PO SCH (09:11)
[2018-06-22] MEDS: ASPIRIN 325 MG TAB PO SCH (09:11)
[2018-06-22] MEDS: LISINOPRIL 10 MG TAB PO SCH (10:10)
[2018-06-22] MEDS: ISOSORBIDE MONONITRATE ER 30 MG TAB.ER.24H PO SCH (10:10)
[2018-06-22] MEDS: lamoTRIgine 25 MG TAB PO SCH (10:10)
[2018-06-22 10:47] VITALS: BMI 20.1
[2018-06-22] MEDS ORDERED: ALPRAZolam 0.25 MG TAB PO PRN (10:51)
[2018-06-22] MEDS ORDERED: NITROGLYCERIN SL TABS 0.4 MG TAB SUBLINGUAL PRN (10:51)
[2018-06-22] MEDS ORDERED: ASPIRIN 325 MG TAB PO STA (10:51)
[2018-06-22] MEDS ORDERED: ALPRAZolam 0.5 MG TAB PO PRN (10:51)
[2018-06-22] MEDS ORDERED: SODIUM CHLORIDE 0.9% 1,000 ML in EMPTY BAG 1 BAG IV ONE (10:51)
[2018-06-22] MEDS ORDERED: ATORVASTATIN 80 MG TAB PO STA (10:51)
[2018-06-22] MEDS ORDERED: ONDANSETRON 4 MG/2 ML VIAL IVP PRN (11:08)
--- NOTE | 2018-06-22 12:49 | ECHOF ---
Referral Reason:chest pain MEASUREMENTS -------- HEIGHT: 160.0 cm WEIGHT: 59.0 kg BP: 133/61 RVIDd: 2.5 cm (< 3.3) IVSd: 1.0 cm (0.6 - 1.1) LVIDd: 4.0 cm (3.9 - 5.3) LVPWd: 0.9 cm (0.6 - 1.1) IVSs: 1.4 cm LVIDs: 2.7 cm LVPWs: 1.3 cm LA Diam: 2.6 cm (2.7 - 3.8) LAESV Index (A-L): 25.46 ml/m Ao Diam: 2.6 cm (2.0 - 3.7) AV Cusp: 1.7 cm (1.5 - 2.6) MV EXCURSION: 15.748 mm (> 18.000) MV EF SLOPE: 109 mm/s (70 - 150) EPSS: 0.2 cm MV E Tato: 1.03 m/s MV DecT: 270 ms MV A Tato: 0.61 m/s MV E/A Ratio: 1.68 FINDINGS -------- Sinus rhythm. This was a technically good study. The left ventricular size is normal. Left ventricular wall thickness is normal. Overall left vent ricular systolic function is normal with, an EF between 60 - 65 %. The right ventricle is normal in size. Normal LA size by volume 22+/-6 ml/m2. The right atrium is normal in size. The aortic valve is trileaflet and appears structurally normal. Mild mitral annular calcification present. The tricuspid valve appears structurally normal. There is no pulmonic regurgitation present. The aortic root size is normal. Normal inferior vena cava with normal inspiratory collapse consistent with estimated right atrial pre ssure of 5 mmHg. There is no pericardial effusion. CONCLUSIONS -------- 1. Sinus rhythm. 2. This was a technically good study. 3. The left ventricular size is normal. 4. Left ventricular wall thickness is normal. 5. Overall left ventricular systolic function is normal with, an EF between 60 - 65 %. 6. The right ventricle is normal in size. 7. Normal LA size by volume 22+/-6 ml/m2. 8. The right atrium is normal in size. 9. The aortic valve is trileaflet and appears structurally normal. 10. Mild mitral annular calcification present. 11. The tricuspid valve appears structurally normal. 12. There is no pulmonic regurgitation present. 13. The aortic root size is normal. 14. Normal inferior vena cava with normal inspiratory collapse consistent with estimated right atrial pressure of 5 mmHg. 15. There is no pericardial effusion. RN PERITONEAL DIALYSIS: Kenyatta Jon RDCS
--- NOTE | 2018-06-22 18:05 | P.PN ---
Subjective Progress Note Date: 06/22/18 Progress note being dictated for Dr. Juarez Interval history: This 58-year-old female admitted with chest pain, possible unstable angina, elevated creatinine kinase, and multiple other medical issues. Patient reports left midsternal chest pain-pressure radiating to left breast this morning at rest, lasting for less than half an hour. Evaluated by a cardiology, and cardiac catheterization being discussed. Echo reporting normal LV function, EF 60-65%. Objective - Vital Signs Vital signs: Vital Signs Temp 97 F L 06/22/18 08:00 Pulse 50 L 06/22/18 16:00 Resp 18 06/22/18 16:00 BP 89/53 06/22/18 16:00 Pulse Ox 96 06/22/18 16:00 Intake & Output 06/21/18 06/22/18 06/22/18 18:59 06:59 18:59 Intake Total 558 Balance 558 Weight 58.967 kg 51.664 kg Intake: IV 140 0.9 ns 140 Amount of Fluid Infused ( 20 ml) Intake, IV Titration 98 Amount Heparin Sod,Pork in 0.45% 98 NaCl 25,000 unit In 0.45 % NaCl 1 500ml.bag @ 12 UNITS/KG/HR 14.15 mls/hr IV .Q24H DANA Rx#: [id number] Oral 300 Other: # Voids 2 # Bowel Movements 0 - Exam PHYSICAL EXAM: VITAL SIGNS: As above GENERAL: Sitting up in bed, no acute distress HEENT: Conjunctivae normal. eyes normal. Oral Mucosa moist NECK: No JVD. No thyroid enlargement. No LNs CARDIOVASCULAR: S1, S2 muffled. No murmur RESPIRATION: Breath sounds diminished in the bases. Occasional scattered rhonchi. ABDOMEN: Soft, nontender . No guarding. no masses palpable. Bowel sounds heard. LEGS: No edema. no swelling PSYCHIATRY: Alert and oriented -3, mood and affect normal. NERVOUS SYSTEM: Cranial N 2-12 grossly normal. Moves all 4 limbs. Diffuse weakness No focal deficits. Skin: no ulcer no rash Lymphatic system. No LN neck axilla or groin. - Labs CBC & Chem 7: 06/22/18 03:28 06/21/18 15:48 Labs: Abnormal Lab Results - Last 24 Hours (Table) 08/12/18 08/12/18 08/13/18 Range/Units 15:48 22:03 00:03 Hct 46.1 H (34.0-46.0) % APTT (22.0-30.0) sec Total Creatine Kinase 199 H (30-135) U/L CK-MB (CK-2) 4.5 H* (0.0-2.4) ng/mL LDL Cholesterol, Calc 107 H (0-99) mg/dL HDL Cholesterol 76 H (40-60) mg/dL 06/22/18 06/22/18 Range/Units 03:28 03:28 Hct (34.0-46.0) % APTT 55.6 H (22.0-30.0) sec Total Creatine Kinase 151 H (30-135) U/L CK-MB (CK-2) 4.9 H* (0.0-2.4) ng/mL LDL Cholesterol, Calc (0-99) mg/dL HDL Cholesterol (40-60) mg/dL Assessment and Plan Assessment: 1. Chest pain, possible unstable angina 2. Increased creatinine kinase with normal troponins 3. COPD 4. Continued ongoing nicotine dependence 5. CAD 6. History of THC Plan: Continue current medication regime ,monitoring and symptomatic treatment. Maintain [place] protocol. As mentioned above cardiology discussing proceeding with cardiac catheterization. Smoking cessation readdressed. Further recommendations to follow. The impression and plan of care has been dictated as directed. : I performed a history and examination of this patient, discussed the same with the dictator. I agree with the dictator's note ,documented as a scribe. Any additional findings or plans will be noted.
[2018-06-23 05:55] VITALS: RESP 18
[2018-06-23] MEDS: PANTOPRAZOLE 40 MG TABLET PO SCH (06:45)
[2018-06-23] MEDS: CLOPIDOGREL 75 MG TAB PO SCH (06:46)
[2018-06-23] MEDS: ASPIRIN 325 MG TAB PO SCH (06:46)
[2018-06-23] MEDS: FLUoxetine HCL 20 MG CAP PO SCH (06:46)
[2018-06-23] MEDS: ARIPiprazole 10 MG TAB PO SCH (06:46)
[2018-06-23] MEDS: lamoTRIgine 25 MG TAB PO SCH (06:47)
[2018-06-23] MEDS: ISOSORBIDE MONONITRATE ER 30 MG TAB.ER.24H PO SCH (06:47)
[2018-06-23 06:58] LABS: Basophils % (A) 1 %; Eosinophils # (A) 0.1 k/uL (0-0.7); Eosinophils % (A) 2 %; HCT 41.9 % (34.0-46.0); HGB 13.4 gm/dL (11.4-16.0); Lymphocytes # (A) 1.3 k/uL (1.0-4.8); Lymphocytes % (A) 31 %; MCHC 31.9 g/dL (31.0-37.0); MCV 100.1 fL (80.0-100.0); Mean Platelet Volume 7.5; Monocytes # (A) 0.2 k/uL (0-1.0); Monocytes % (A) 5 %; Neutrophils # (A) 2.5 k/uL (1.3-7.7); Neutrophils % (A) 59 %; Platelet Count 137 k/uL (150-450); RBC 4.18 m/uL (3.80-5.40); RDW 12.7 % (11.5-15.5); WBC 4.2 k/uL (3.8-10.6)
[2018-06-23] MEDS ORDERED: IV FLUID CONTINUATION 550 ML IV ONE (07:16)
[2018-06-23] MEDS ORDERED: LIDOCAINE 1% INJ 10MG/ML (20 ML MDV) ONE ×2 (07:34→07:44)
[2018-06-23] MEDS ORDERED: diphenhydrAMINE 50 MG/ML 1 ML VIAL IVP ONE (07:35)
[2018-06-23] MEDS ORDERED: diphenhydrAMINE 50 MG/ML 1 ML VIAL ONE (07:35)
[2018-06-23] MEDS ORDERED: MIDAZOLAM 2 MG/2 ML VIAL ONE (07:36)
[2018-06-23] MEDS ORDERED: MIDAZOLAM 2 MG/2 ML VIAL IV ONE (07:37)
[2018-06-23] MEDS ORDERED: LIDOCAINE 1% INJ 10MG/ML (20 ML MDV) SQ ONE ×2 (07:38→07:45)
[2018-06-23] MEDS ORDERED: methylPREDNISolone SOD SUCCI 125 MG/2 ML VIAL IV ONE ×2 (07:42→09:00)
[2018-06-23 07:45] LABS: Anion Gap 5 mmol/L; Blood Urea Nitrogen 11 mg/dL (7-17); Calcium 8.8 mg/dL (8.4-10.2); Carbon Dioxide 25 mmol/L (22-30); Chloride 111 mmol/L (98-107); Glucose 87 mg/dL (74-99); Potassium 3.9 mmol/L (3.5-5.1); Sodium 141 mmol/L (137-145)
[2018-06-23] MEDS ORDERED: fentaNYL (PF) 50 MCG/ML 2 ML AMP ONE (07:47)
[2018-06-23] MEDS ORDERED: fentaNYL (PF) 50 MCG/ML 2 ML AMP IV ONE (07:53)
[2018-06-23] MEDS ORDERED: IOPAMIDOL-370 100ML BTL INJ ONE (08:03)
[2018-06-23] MEDS ORDERED: RX INFO: IV CONTRAST WAS GIVEN 1 EACH MISC MISCELLANE PRN (08:13)
[2018-06-23] MEDS ORDERED: SODIUM CHLORIDE 0.9% 1,000 ML IV SCH (08:15)
[2018-06-23] MEDS: IPRATROPIUM-ALBUTEROL 3 ML NEB INHALATION SCH ×3 (08:15→19:40)
[2018-06-23] MEDS ORDERED: methylPREDNISolone SOD SUCCI 125 MG in SODIUM CHLORIDE 0.9% 100 ML IVPB STA (08:42)
--- NOTE | 2018-06-23 08:52 | CC ---
CARDIAC CATHETERIZATION REPORT INDICATION: Unstable angina. Lucero is a 58-year-old lady who is admitted to hospital with symptoms of chest pain. She ruled out for myocardial infarction. She has known coronary artery disease and had angioplasty of right coronary artery. She had chronic total occlusion of the proximal LAD with extensive collaterals from the circumflex and the distal RCA. The patient was advised to undergo cardiac catheterization to rule out restenoses at the previously stented segment within the right coronary artery. She had been explained of risks, benefits and alternatives, understood and accepted. PROCEDURE NOTE: After obtaining informed consent, left heart catheterization and coronary angiogram were performed via the right femoral artery using standard Susan catheters. The patient tolerated the procedure well without any obvious immediate complications. We initially attempted vascular access on the left side and then went on to obtain vascular access from the right groin. The patient received moderate conscious sedation. Total sedation time was 27 minutes. FINDINGS: 1. HEMODYNAMICS: Left ventricular end-diastolic pressure is 12 to 14 mm. There is no significant gradient across the aortic valve. 2. LEFT VENTRICULOGRAM: Left ventriculogram is not performed. 3. ANGIOGRAPHIC DATA: 4. Left main coronary artery is a small vessel but is free of stenosis. Divides into left anterior descending coronary artery and circumflex coronary artery. Circumflex coronary artery shows mild nonobstructive disease. It is a small nondominant vessel. There are collaterals from the circumflex to the LAD. The LAD appears occluded right at its origin. The right coronary artery is a large dominant vessel. Previously stented areas within the proximal and mid right coronary artery appears patent with extensive collaterals to the distal LAD. There is a lesion noted within the ostial portion of the PLV branch, but this was there at the end of the angioplasty in March. CONCLUSIONS: 1. Chronic total occlusion of the ostial left anterior descending artery. 2. Patent stents within the proximal and mid right coronary artery. PLAN: I am going to refer the patient to Dr. Saldana to [facility]. I spoke to him and I am going to mail the angiograms and hopefully we will know by tomorrow whether we are going to transfer her from hospital to hospital or we are going to discharge her home and send her as outpatient. MMODL / IJN: [id number] /
[2018-06-23] MEDS: HEPARIN SOD,PORK IN 0.45% NACL 25,000 UNIT in 0.45% NACL 1 500ML.BAG IV SCH (09:28)
[2018-06-23] MEDS: LISINOPRIL 10 MG TAB PO SCH (09:29)
[2018-06-23] MEDS: NICOTINE 14MG/24HR PATCH TRANSDERM SCH ×2 (09:29→12:32)
[2018-06-23] MEDS: HYDROmorphone 1 MG/ML 1 ML SYRINGE IVP PRN ×4 (09:30→23:35)
--- NOTE | 2018-06-23 12:06 | P.CONS ---
History of Present Illness - Reason for Consult Consult date: 06/23/18 Dysphagia Requesting physician: Lemuel Juarez - History of Present Illness 58-year-old female with significant coronary artery disease recent PCI stenting admitted with acute chest pain and dysphagia. She has a history of underlying GERD; think she had an EGD several years ago unsure. Patient underwent diagnostic heart catheterization today previous stents patent; referral to [facility] [place] was advised for further evaluation and care. Presently maintained on dual antiplatelet therapy. She reports intermittent dysphagia in the lower esophageal region intermittently for the last few months more so with thicker meats breads. Denies hematemesis hematochezia melena. No significant weight loss. Denies odynophagia tolerating liquids without difficulty. Presently tolerating small amounts of a healthy heart diet. Review of Systems Constitutional: Denies fever, chills, sweats, weight gain, or loss. HEENT: Negative for migraines, blurred vision or loss, earaches, drainage, tinnitus, oral mucosal lesions, dysphagia, or odynophagia. CARDIAC: Admitted with chest pain denies, arrhythmias, or palpitation. RESPIRATORY: Negative for shortness of breath, hemoptysis, cough, or sputum production. GI: See HPI for pertinent findings. : Negative for hematuria, urgency, frequency, polyuria, or dysuria. GYNc: Negative vaginal discharge. MUSCULOSKELETAL: Negative for muscle aches, swelling, arthritis, and arthralgias. NEUROLOGIC: Negative for stroke or TIA. ENDOCRINE: History of diabetes mellitus. Negative for thyroid problems. SKIN: Negative for rash or itching. PSYCHIATRIC: Negative history for depression and anxiety Past Medical History Past Medical History: Coronary Artery Disease (CAD), Myocardial Infarction (OK) Additional Past Medical History / Comment(s): Recent falls-"I feel off balance. ", chronic R hip and back pain, recent R groin hematoma post PCI/stent, past arm infection (cannot recall laterality) pt states she was treated for 3 years and had picc lines-states it was not MRSA/VRE. Last Myocardial Infarction Date:: unknown History of Any Multi-Drug Resistant Organisms: None Reported Past Surgical History: Heart Catheterization With Stent, Orthopedic Surgery Additional Past Surgical History / Comment(s): 03/30/18 PCI with stents then post R groin hematoma, R hip fracture with surgery/hardware, colonoscopy, trachea damage with surgical repair 30 yrs ago, picc lines, kidney stone removal , ureteral stent which she believes has since been removed, hemorrhoidectomy. Past Anesthesia/Blood Transfusion Reactions: No Reported Reaction Date of Last Stent Placement:: 03/30/18 Past Psychological History: Depression Additional Psychological History / Comment(s): Pt states her depression is well managed with her medications. She states she has had past suicide attempt in 2017 but none since and does not feel suicidal at this time. She is independent. Smoking Status: Current every day smoker Past Alcohol Use History: None Reported Additional Past Alcohol Use History / Comment(s): Pt started smoking in 1973 and was a 1ppd smoker. She recently started cutting down and is now smoking 2 cigarettes a day. Past Drug Use History: None Reported Additional Drug Use History / Comment(s): Past PDA but no longer. Pt states she smokes 2 joints a day-has medical marijuana card. - Past Family History Mother Family Medical History: Cancer Additional Family Medical History / Comment(s): Mother is from pancreatic cancer. Father Family Medical History: Cancer Additional Family Medical History / Comment(s): Father is . Pt thinks he passed from cancer but does not know what type. Medications and Allergies Home Medications Medication Instructions Recorded Confirmed Type FLUoxetine HCL [PROzac] 40 mg PO DAILY #14 cap 11/16/17 06/21/18 Rx ARIPiprazole [Abilify] 10 mg PO DAILY 03/24/18 06/21/18 History Aspirin [Adult Low Dose Aspirin EC] 81 mg PO DAILY 30 Days #30 03/31/18 Rx tablet. Clopidogrel [Plavix] 75 mg PO DAILY 30 Days #30 tablet 03/31/18 06/21/18 Rx lamoTRIgine [LaMICtal] 75 mg PO DAILY 04/13/18 06/21/18 History Atorvastatin [Lipitor] 80 mg PO HS #30 tab 04/14/18 06/21/18 Rx Lisinopril [Zestril] 10 mg PO DAILY #30 tab 04/14/18 06/21/18 Rx Nitroglycerin Sl Tabs [Nitrostat] 0.4 mg SUBLINGUAL Q5M PRN #25 tab 04/14/1810/27 Rx Isosorbide Mononitrate ER [Imdur] 30 mg PO DAILY 06/21/18 06/21/18 History Allergies Allergy/AdvReac Type Severity Reaction Status Date / Time cyclobenzaprine HCl Allergy Anaphylaxis Verified 06/21/18 16:25 [From Flexeril] Iodinated Contrast- Oral and Allergy Rash/Hives Verified 06/21/18 16:25 IV Dye iodine Allergy Rash/Hives, Verified 06/21/18 16:25 flushed,cris sea prochlorperazine edisylate Allergy Anaphylaxis Verified 06/21/18 16:25 [From Compazine] prochlorperazine maleate Allergy Anaphylaxis Verified 06/21/18 16:25 [From Compazine] codeine AdvReac Nausea & Verified 06/21/18 16:25 Vomiting Physical Exam Vitals: Vital Signs Temp Pulse Pulse Resp BP Pulse Ox 06/23/18 04:00 98.3 F 53 L 18 158/77 96 06/23/18 00:00 97.6 F 49 L 16 106/56 100 06/22/18 20:00 97.3 F L 49 L 16 95/53 95 06/22/18 19:25 51 L 16 06/22/18 19:16 51 L 16 06/22/18 16:00 50 L 18 89/53 96 06/22/18 13:08 80 06/22/18 13:00 80 Intake and Output 06/22/18 06/23/18 06/23/18 22:59 06:59 14:59 Intake Total 100 Output Total 0 Balance 100 Intake: IV 100 Output: Urine 0 Other: Voiding Method Toilet Toilet # Voids 2 2 # Bowel Movements 0 0 Weight 52.3 kg - Constitutional General appearance: average body habitus - EENT Eyes: normal appearance Ears: bilateral: normal - Neck Neck: normal ROM - Respiratory Respiratory: bilateral: CTA - Cardiovascular Rhythm: regular Heart sounds: normal: S1, S2 - Gastrointestinal Nontender. Right groin with fem-stop without bleeding. General gastrointestinal: soft - Integumentary Integumentary: normal turgor - Psychiatric Psychiatric: A&O x's 3 Results CBC & Chem 7: 06/24/18 05:50 06/24/18 05:50 Labs: Abnormal Lab Results - Last 24 Hours (Table) 06/23/18 06/23/18 Range/Units 06:20 06:20 MCV 100.1 H (80.0-100.0) fL Plt Count 137 L (150-450) k/uL Chloride 111 H (98-107) mmol/L Assessment and Plan (1) Dysphagia Narrative/Plan: History of GERD underlying esophageal stricture disease cannot be excluded Current Visit: Yes Status: Acute Code(s): R13.10 - DYSPHAGIA, UNSPECIFIED SNOMED Code(s): 20132463 (2) History of coronary artery disease Current Visit: Yes Status: Acute Code(s): Z86.79 - PERSONAL HISTORY OF OTHER DISEASES OF THE CIRCULATORY SYSTEM SNOMED Code(s): 157167413 Plan: 1. Protonix 40mg daily. 2. Speech evaluation; diet modification; softer liquid type foods. Possible MBS/ esophagram. 3. Inpatient EGD not planned at this time secondary patient receiving dual antiplatelet therapy recent cardiac PCI stent high risk for endoscopic procedures secondary to recent PCI stent; stone gang sawyer prefers holding antiplatelet therapy prior to endoscopic exam in case esophageal dilation needs to be performed and presently patient needs to be maintained on ASA/Plavix. 4. Will follow closely with you. Thank you for this kind referral and the opportunity to participate in the care of your patient. This consultation was discussed with Dr. Lugo. The impression and plan of care have been directed as dictated.
[2018-06-23] MEDS: predniSONE 10 MG TAB PO SCH ×2 (16:17→20:34)
[2018-06-23] MEDS: NICOTINE 7MG/24HR PATCH TRANSDERM SCH (16:17)
[2018-06-23] MEDS: diphenhydrAMINE 50 MG CAP PO SCH ×2 (16:17→20:34)
[2018-06-23] MEDS ORDERED: Potassium Replacement Protocol 1 EACH MISC MISCELLANE PRN (16:53)
[2018-06-23] MEDS ORDERED: Magnesium Replacement Protocol 1 EACH MISC MISCELLANE PRN (16:54)
--- NOTE | 2018-06-23 16:58 | P.PN ---
Subjective Progress Note Date: 06/23/18 Progress note being dictated for Dr. Juarez Interval history: This 58-year-old female admitted with chest pain, possible unstable angina, elevated creatinine kinase, and multiple other medical issues. Patient reports left midsternal chest pain-pressure radiating to left breast this morning at rest, lasting for less than half an hour. Evaluated by a cardiology, and cardiac catheterization being discussed. Echo reporting normal LV function, EF 60-65%. 06/23/2018 100 cardiac catheterization this morning reporting chronic total occlusion of the ostial LAD, patent stents within the proximal and mid RCA. Cardiology discussing referring patient to [facility] [place] for further evaluation/ intervention. Evaluated by a GI with recommendations noted. Denies chest pain , palpitations or shortness of breath currently. Objective - Vital Signs Vital signs: Vital Signs Temp 98.3 F 06/23/18 04:00 Pulse 53 L 06/23/18 04:00 Resp 18 06/23/18 04:00 BP 158/77 06/23/18 04:00 Pulse Ox 96 06/23/18 04:00 Intake & Output 06/22/18 06/23/18 06/23/18 18:59 06:59 18:59 Intake Total 558 100 Output Total 0 Balance 558 100 Weight 51.664 kg 52.3 kg Intake: IV 140 100 0.9 ns 140 Amount of Fluid Infused ( 20 ml) Intake, IV Titration 98 Amount Heparin Sod,Pork in 0.45% 98 NaCl 25,000 unit In 0.45 % NaCl 1 500ml.bag @ 12 UNITS/KG/HR 14.15 mls/hr IV .Q24H [facility] Rx#: [id number] Oral 300 Output: Urine 0 Other: Voiding Method Toilet # Voids 2 2 # Bowel Movements 0 0 - Exam PHYSICAL EXAM: VITAL SIGNS: As above GENERAL: Laying in bed, no acute distress HEENT: Conjunctivae normal. eyes normal. Oral Mucosa moist NECK: No JVD. No thyroid enlargement. No LNs CARDIOVASCULAR: S1, S2 muffled. No murmur RESPIRATION: Breath sounds diminished in the bases. Occasional scattered rhonchi. ABDOMEN: Soft, nontender . No guarding. no masses palpable. Bowel sounds heard. LEGS: No edema. no swelling PSYCHIATRY: Alert and oriented -3, mood and affect normal. NERVOUS SYSTEM: Cranial N 2-12 grossly normal. Moves all 4 limbs. Diffuse weakness No focal deficits. - Labs CBC & Chem 7: 06/23/18 06:20 06/23/18 06:20 Labs: Abnormal Lab Results - Last 24 Hours (Table) 06/23/18 06/23/18 Range/Units 06:20 06:20 MCV 100.1 H (80.0-100.0) fL Plt Count 137 L (150-450) k/uL Chloride 111 H (98-107) mmol/L Assessment and Plan Assessment: 1. Chest pain, possible unstable angina, status post cardiac cath reporting patent stents, chronic occlusion of the ostial LAD 2. Increased creatinine kinase with normal troponins 3. COPD 4. Continued ongoing nicotine dependence 5. CAD 6. History of THC Plan: Continue current medication regime ,monitoring and symptomatic treatment. Cardiology discussing [facility] referral, as discussed above. Smoking cessation readdressed. Further recommendations to follow. The impression and plan of care has been dictated as directed. : I performed a history and examination of this patient, discussed the same with the dictator. I agree with the dictator's note ,documented as a scribe. Any additional findings or plans will be noted.
[2018-06-23] MEDS: ATORVASTATIN 80 MG TAB PO SCH (20:33)
[2018-06-24 06:14] LABS: Basophils % (A) 0 %; Eosinophils % (A) 0 %; HCT 38.5 % (34.0-46.0); HGB 12.6 gm/dL (11.4-16.0); Lymphocytes # (A) 0.6 k/uL (1.0-4.8); Lymphocytes % (A) 8 %; MCH 32.7 pg (25.0-35.0); MCHC 32.8 g/dL (31.0-37.0); MCV 99.7 fL (80.0-100.0); Mean Platelet Volume 8.2; Monocytes # (A) 0.3 k/uL (0-1.0); Monocytes % (A) 4 %; Neutrophils # (A) 7.1 k/uL (1.3-7.7); Neutrophils % (A) 87 %; Platelet Count 144 k/uL (150-450); RBC 3.86 m/uL (3.80-5.40); RDW 12.6 % (11.5-15.5); WBC 8.2 k/uL (3.8-10.6)
[2018-06-24 06:22] LABS: Calcium 9.1 mg/dL (8.4-10.2); Magnesium 1.7 mg/dL (1.6-2.3); Potassium 5.1 mmol/L (3.5-5.1)
[2018-06-24] MEDS: PANTOPRAZOLE 40 MG TABLET PO SCH (06:45)
[2018-06-24] MEDS: IPRATROPIUM-ALBUTEROL 3 ML NEB INHALATION SCH ×2 (07:22→13:50)
[2018-06-24] MEDS: CLOPIDOGREL 75 MG TAB PO SCH (08:08)
[2018-06-24] MEDS: FLUoxetine HCL 20 MG CAP PO SCH (08:08)
[2018-06-24] MEDS: ARIPiprazole 10 MG TAB PO SCH (08:08)
[2018-06-24] MEDS: ASPIRIN 325 MG TAB PO SCH (08:08)
[2018-06-24] MEDS: ISOSORBIDE MONONITRATE ER 30 MG TAB.ER.24H PO SCH (08:08)
[2018-06-24] MEDS: LISINOPRIL 10 MG TAB PO SCH (08:09)
[2018-06-24] MEDS: lamoTRIgine 25 MG TAB PO SCH (08:09)
[2018-06-24] MEDS: HYDROmorphone 1 MG/ML 1 ML SYRINGE IVP PRN (08:09)
[2018-06-24] MEDS: NICOTINE 7MG/24HR PATCH TRANSDERM SCH (10:50)
[2018-06-24] MEDS: diphenhydrAMINE 50 MG CAP PO SCH (10:50)
[2018-06-24] MEDS: predniSONE 10 MG TAB PO SCH (10:50)
[2018-06-24] MEDS ORDERED: BENZOCAINE 20 % GEL 15 GM TUBE MM PRN (11:27)
[2018-06-24] MEDS ORDERED: HYDROcodone/APAP 5-325MG 1 EACH TAB PO PRN (11:50)
[2018-06-24 11:51] VITALS: BP 139/74; PULSE 54; TEMP 98.1
--- NOTE | 2018-06-24 14:20 | P.PN ---
Subjective Progress Note Date: 06/24/18 This is a 58-year-old female with known history of coronary artery disease, patient was in the hospital in March of this year, at which time she underwent a cardiac catheterization which revealed three-vessel coronary artery disease with a chronically occluded LAD, significant stenosis in the RCA and a moderate lesion in the proximal circumflex, she underwent angioplasty and stenting of the right coronary artery at that time. Patient follows with Dr. Hobson in the office, prior to this cardiac catheterization she had an abnormal stress test in the LAD distribution. She had presented back to the hospital in April with symptoms of chest discomfort, she was seen in consultation at that time by Dr. Damir Goldman, discharged home on medical therapy. Patient presents back to the hospital on this occasion with symptoms of chest pressure and heaviness which started while she was painting. Patient became quite short of breath with these symptoms, she states that the pressure was very intense, much worse than her initial presentation here. She took a total of 4 sublingual nitroglycerin, and ultimately came to the emergency room for further evaluation. Initial EKG on presentation here showed a normal sinus rhythm with ST-T wave changes noted in the anterior leads. Subsequent EKG showed normal sinus rhythm with changes in the anterior leads, primarily V1 and V2. Chest x- ray showed mild vascular prominence suggesting mild vascular congestion. Blood pressure on arrival here 162/90 with a heart rate in the 60s, 96% on room air. Blood pressure this morning 110/60 with a heart rate in the 50s to 60s, 99% on room air. White blood cell count 5.0, hemoglobin 15, platelet count 158. Sodium 139, potassium 4.1, BUN 10, creatinine 0.8. Troponins negative 3. Cholesterol 194, LDL 107, HDL 76, triglycerides 57. Patient's home medications include Zestril 10 mg daily, Imdur 30 mg daily, Plavix 75 mg daily, baby aspirin , and Lipitor 80 mg daily, patient states she has been taking her medications at home, she continues to smoke, but states she is only smoking 4 cigarettes per day. At the time of my examination this morning she is currently chest pain -free. 06/24/2018 Patient underwent a cardiac catheterization yesterday which revealed a chronic total occlusion of the ostial LAD as before, patent stents within the proximal and mid right coronary artery. Patient was seen and examined this morning, denies any chest pain or difficulty in breathing. She's been up ambulating without any difficulty. The plan is for the patient to be discharged home today. She will follow-up with Dr. Hobson in the office in one week. And the patient will be scheduled with Dr. joshi to undergo intervention of her WAREHOUSE RECORD CLERK as an outpatient. Objective - Vital Signs Vital signs: Vital Signs Temp 98.1 F 06/24/18 11:51 Pulse 54 L 06/24/18 11:51 Resp 18 06/24/18 11:51 BP 139/74 06/24/18 11:51 Pulse Ox 98 06/24/18 11:51 Intake & Output 06/23/18 06/24/18 06/24/18 18:59 06:59 18:59 Intake Total 500 650 180 Output Total 0 0 Balance 500 650 180 Weight 53.4 kg Intake: IV 100 Intake, IV Titration 650 Amount Sodium Chloride 0.9% 1, 650 000 ml @ 75 mls/hr IV . [id number] [facility] Rx#:[id number] Oral 400 180 Output: Urine 0 0 Other: Voiding Method Toilet Toilet # Voids 1 1 - Exam PHYSICAL EXAMINATION: GENERAL: 58-year-old female in no acute distress at the time of my examination HEENT: Head is atraumatic, normocephalic. Pupils equal, round. Sclera anicteric. Conjunctiva are clear. Mucous membranes of the mouth are moist. Neck is supple. There is no elevated jugular venous pressure.] bruit is heard. HEART EXAMINATION: Heart S1, S2 normal. No murmur or gallop heard. CHEST EXAMINATION: Lungs are clear to auscultation and precussion. No chest wall tenderness is noted on palpation or with deep breathing. ABDOMEN: Soft, nontender. Bowel sounds are heard. No organomegaly noted. EXTREMITIES: 2+ peripheral pulses with no evidence of peripheral edema and no calf tenderness noted. And left groin soft, no evidence of any hematoma. NEUROLOGIC patient is awake, alert and oriented ?-3. . - Labs CBC & Chem 7: 06/24/18 05:50 06/24/18 05:50 Labs: Abnormal Lab Results - Last 24 Hours (Table) 06/24/18 06/24/18 Range/Units 05:50 05:50 Plt Count 144 L (150-450) k/uL Lymphocytes # 0.6 L (1.0-4.8) k/uL Chloride 115 H (98-107) mmol/L Glucose 112 H (74-99) mg/dL Assessment and Plan Plan: Assessment and plan #1 symptoms of chest pressure and heaviness suggestive of angina, troponins negative 3. EKG shows normal sinus rhythm with ST-T wave changes noted in the anterior leads. Status post cardiac catheterization which revealed a chronically occluded LAD and patent stents in the proximal and mid RCA. #2 known history of coronary artery disease with RCA stenting in March of this year, patient was noted at that time also to have a totally occluded LAD and moderate disease in the circumflex #3 nicotine dependence #4 hypertension #5 hyperlipidemia Plan Cardiology's perspective, patient may be able to be discharged home. We'll make her a follow-up appointment with Dr. Hobson in the office post discharge. He will arrange patient to undergo intervention of the LAD WAREHOUSE RECORD CLERK as an outpatient. DNP note has been reviewed, I agree with a documented findings and plan of care. Patient was seen and examined.
--- NOTE | 2018-06-24 14:43 | P.PN ---
Subjective Progress Note Date: 06/24/18 Principal diagnosis: Dysphagia The patient reports that she was seen by speech language pathology and informed techniques to improve symptoms of dysphagia. She is tolerated diet at this time. No reports of abdominal pain, nausea or vomiting. She did have an esophagram which showed severe stenosis at the gastroesophageal junction. This is consistent with her history as she is reported requiring dilation in the past , approximately every 5 years. Objective - Vital Signs Vital signs: Vital Signs Temp 98.1 F 06/24/18 11:51 Pulse 54 L 06/24/18 11:51 Resp 18 06/24/18 11:51 BP 139/74 06/24/18 11:51 Pulse Ox 98 06/24/18 11:51 Intake & Output 06/23/18 06/24/18 06/24/18 18:59 06:59 18:59 Intake Total 500 650 180 Output Total 0 0 Balance 500 650 180 Weight 53.4 kg Intake: IV 100 Intake, IV Titration 650 Amount Sodium Chloride 0.9% 1, 650 000 ml @ 75 mls/hr IV . [id number] [facility] Rx#:[id number] Oral 400 180 Output: Urine 0 0 Other: Voiding Method Toilet Toilet # Voids 1 1 - Constitutional General appearance: Present: average body habitus, cooperative - Respiratory Respiratory: bilateral: CTA, negative: rhonchi, wheezing - Gastrointestinal General gastrointestinal: Present: normal bowel sounds, soft - Integumentary Integumentary: Present: normal - Psychiatric Psychiatric: Present: A&O x's 3, appropriate affect - Labs CBC & Chem 7: 06/24/18 05:50 06/24/18 05:50 Labs: Abnormal Lab Results - Last 24 Hours (Table) 06/24/18 06/24/18 Range/Units 05:50 05:50 Plt Count 144 L (150-450) k/uL Lymphocytes # 0.6 L (1.0-4.8) k/uL Chloride 115 H (98-107) mmol/L Glucose 112 H (74-99) mg/dL Assessment and Plan (1) Dysphagia Narrative/Plan: Patient with a long-standing history of esophageal dysphagia requiring dilation in the past. She reports dysphagia to both solids and liquids. She has been able to tolerate her diet during this hospitalization and has been seen by speech language pathology with recommendations for modified diet and maneuvers to aid in swallowing Current Visit: Yes Status: Acute Code(s): R13.10 - DYSPHAGIA, UNSPECIFIED SNOMED Code(s): 63449555 (2) History of coronary artery disease Current Visit: Yes Status: Acute Code(s): Z86.79 - PERSONAL HISTORY OF OTHER DISEASES OF THE CIRCULATORY SYSTEM SNOMED Code(s): 325658125 Plan: 1. Continue soft low residue diet with small bites and additional instructions per speech language pathology. 2. Patient will require an EGD given findings of severe distal esophageal stenosis on video swallow. The patient has a known history of dysphagia requiring dilation in the past. Timing will have to be determined based on the patient and obtaining cardiac clearance with discussion regarding current antiplatelet/anticoagulation. 3. Follow-up in one week with gastroenterology service. 4. Continued follow-up with the cardiology service with the patient reporting likely referral to [facility] for further intervention. Thank you for the opportunity to participate in the care of this patient, we will continue to follow her in the outpatient setting.
--- NOTE | 2018-06-24 15:44 | FL ---
EXAMINATION TYPE: FL barium swallow w video DATE OF EXAM: 06/24/2018 COMPARISON: NONE HISTORY: Food getting stuck in chest and distal esophagus. History of previous dilatation TECHNIQUE: Fluoroscopy. FINDINGS: Fluoroscopic guidance was provided for the procedure performed in conjunction with the [facility] pathology department. Please see complete report forthcoming from the Speech Pathology departmen t. Various consistencies from thin liquid to solids were administered. Fluoroscopy time: 2.12 minutes Number of images: 0. No aspiration or penetration was evident. No significant pooling was observed in the vallecula. There was normal propulsion of the bolus. Limited esophagram was performed in the patient's symptoms and history. There appears to be a severe stenosis at the gastroesophageal junction region. Presbyesophagus was evident with tertiary and secon neal contractions are evident. Complete esophagram is recommended for better evaluation of the stenos is. IMPRESSION: 1. Normal modified barium swallow. 2. Severe stenosis at the gastroesophageal junction. Additional evaluation with a complete esophagram is recommended.
--- NOTE | 2018-06-24 21:35 | DS ---
DISCHARGE SUMMARY DATE OF SERVICE: 06/24/2018. FINAL DIAGNOSES: 1. Chest pain, possible unstable angina, status post cardiac catheterization with patent stents and chronic occlusion of the ostial left anterior descending. 2. Increased creatine kinase with normal troponins. 3. Chronic obstructive pulmonary disease. 4. Ongoing nicotine dependence. 5. Coronary artery disease. 6. History of THC. 7. Possibly severe esophageal stricture/stenosis. DISCHARGE DISPOSITION: The patient will be discharged in stable condition with a guarded prognosis. TOTAL TIME TAKEN: 35 minutes. HISTORY OF PRESENT ILLNESS: This 58-year-old woman with a past medical history of multiple medical problems, being followed by Dr. Alarcon and Dr. Donald in the outpatient setting, was admitted with chest pain, myocardial infarction cardiac catheterization. Stents were patent. LAD could not be negotiated. Recommended evaluation as an outpatient. Referrals were per Cardiology. The patient also had video fluoroscopic swallow which showed normal barium swallow and a severe stenosis of EG junction and also recommend outpatient GI followup. EXAM: Vitals are stable. CARDIOVASCULAR: S1, S2 muffled. ABDOMEN: Soft. NERVOUS SYSTEM: Nonfocal. DISCHARGE ADVICE AND MEDICATIONS: 1. Discharge diet is cardiac. 2. Activity limited until followup. 3. Follow up with Dr. Alarcon in 2-3 days. 4. Follow up with Dr. Donald and Cardiology and Gastroenterology as recommended. 5. I would recommend close follow up with Gastroenterology also in the outpatient setting, including endoscopies. MEDICATION: 1. Abilify 10 mg p.o. daily. 2. Imdur ER 30 mg b.i.d. 3. Lamictal 70 mg p.o. daily. 4. Ecotrin 81 mg p.o. daily. 5. Lipitor 80 mg q.h.s. 6. Plavix 75 mg p.o. daily. 7. Prilosec 40 mg p.o. 8. mg p.o. daily. 9. Habitrol 7 daily. 10.Nitrostat 0.4 sublingual p.r.n. 11.Protonix 40 mg daily. Currently the patient is stable, but overall prognosis guarded. Further recommendations to follow. MMODL / IJN: [id number] /
== END 2018-06-24 16:41 | disposition home or self-care (01) | DRG 287 ==
LOC: EC 15:23 → 6SEL 17:23
PROVIDERS: ADMIT Internal Medicine; ATTEND Internal Medicine
PROC: 4A023N7 Measurement of Cardiac Sampling and Pressure, Left Heart, Percutaneous Approach (ICD-10-PCS; principal; 2018-06-23 07:16)
PROC: B2111ZZ Fluoroscopy of Multiple Coronary Arteries using Low Osmolar Contrast (ICD-10-PCS; principal; 2018-06-23 07:16)
DX: I25.110 Atherosclerotic heart disease of native coronary artery with unstable angina pectoris (principal); E78.5 Hyperlipidemia, unspecified; F17.210 Nicotine dependence, cigarettes, uncomplicated; I10 Essential (primary) hypertension; I25.82 Chronic total occlusion of coronary artery; J44.9 Chronic obstructive pulmonary disease, unspecified; K21.9 Gastro-esophageal reflux disease without esophagitis; M19.90 Unspecified osteoarthritis, unspecified site; R13.10 Dysphagia, unspecified; I25.2 Old myocardial infarction; Z79.02 Long term (current) use of antithrombotics/antiplatelets; Z79.899 Other long term (current) drug therapy; Z79.82 Long term (current) use of aspirin; Z80.0 Family history of malignant neoplasm of digestive organs; Z87.442 Personal history of urinary calculi; Z91.5 Personal history of self-harm; Z91.81 History of falling; Z95.5 Presence of coronary angioplasty implant and graft; Z88.5 Allergy status to narcotic agent; Z88.8 Allergy status to other drugs, medicaments and biological substances; Z91.041 Radiographic dye allergy status
CPT/HCPCS: 36415; 71046; 74230; 80048; 80053; 80061; 82550; 82553; 83735; 84484; 85025; 85610; 85730; 93005; 93306; 93458; 94640; 96365; 96366; 96375; 96376; 99285

== ENCOUNTER → 2018-10-28 | Outpatient (CLI) | payer BC, MEDICARE ==
--- NOTE | 2018-10-28 12:06 | FL ---
EXAMINATION TYPE: FL barium swallow w video DATE OF EXAM: 10/28/2018 MODIFIED SWALLOW / DEGLUTITION STUDY CLINICAL HISTORY: Dysphagia. TECHNIQUE: Deglutition study is performed utilizing thin liquid barium, nectar thick liquid barium, barium thick pudding, and barium coated cracker. 1.5 minutes of fluoroscopy time was utilized. 0 imag es were saved as the examination was video recorded. COMPARISON: None. FINDINGS: The oral and pharyngeal phases show satisfactory initiation and propagation with all modali ties tested. Normal mastication is seen with solid modalities tested. [id number] repeated fer ngeal penetration was seen with the thin consistency while utilizing a straw. Moderate vallecular res iduals were appreciated with thicker consistencies. There is no evidence of aspiration with any modal ity tested. No significant pharyngeal residue was appreciated. IMPRESSION: 1. Mild to moderate persistent laryngeal penetration with thin barium when utilizing a straw. 2. Moderate vallecular residuals with thicker consistencies. Please refer to speech therapist notes f or further details if necessary.
== END | disposition home or self-care (01) ==
LOC: RADFLMAIN 10:52
PROVIDERS: ATTEND Internal Medicine Gastroenterology
DX: R93.89 Abnormal findings on diagnostic imaging of other specified body structures (principal); R13.19 Other dysphagia
CPT/HCPCS: 74230

== ENCOUNTER 2018-11-10 18:11 | Observation (INO) | payer BC ==
[2018-11-10] MEDS ORDERED: ASPIRIN 81 MG PO STA (18:43)
[2018-11-10] MEDS ORDERED: NITROGLYCERIN OINT 1 INCH/GM PACKET TOPICAL STA (18:43)
--- NOTE | 2018-11-10 18:50 | ED ---
General Adult HPI - General Chief complaint: Chest Pain Stated complaint: Chest pressure Time Seen by Provider: 11/10/18 18:15 Source: patient, RN notes reviewed Mode of arrival: ambulatory Limitations: no limitations - History of Present Illness Initial comments: This a 58-year-old female who presents emergency Department complaining of chest pain for the last hour and a half per patient has had stents in the past and she states this pressure sensation. Patient states the pain radiated to her back and her neck. Patient states she is also very short of breath with this pain. Patient states the pain is better now but still existing. Patient denies any diaphoretic episodes patient denies any nausea vomiting diarrhea. Patient denies any abdominal pain. Patient denies any lightheadedness dizziness or nursing episode. Patient states she has had stents placed in the past but she was told she had 100% occlusion of another vessel and she is going to clean the clinic for them to reevaluate her. - Related Data Home Medications Medication Instructions Recorded Confirmed ARIPiprazole [Abilify] 10 mg PO DAILY 03/24/18 11/10/18 lamoTRIgine [LaMICtal] 75 mg PO DAILY 04/13/18 11/10/18 Isosorbide Mononitrate ER [Imdur] 30 mg PO DAILY 06/21/18 11/10/18 HYDROcodone/APAP 5-325MG [[place] 1 tab PO TID PRN 11/10/18 11/10/18 5-325] Metoprolol Succinate (ER) [Toprol 25 mg PO DAILY 11/10/18 11/10/18 Xl] Previous Rx's Medication Instructions Recorded FLUoxetine HCL [PROzac] 40 mg PO DAILY #14 cap 11/16/17 Aspirin [Adult Low Dose Aspirin EC] 81 mg PO DAILY 30 Days #30 03/31/18 tablet. Clopidogrel [Plavix] 75 mg PO DAILY 30 Days #30 tablet 03/31/18 Atorvastatin [Lipitor] 80 mg PO HS #30 tab 04/14/18 Lisinopril [Zestril] 10 mg PO DAILY #30 tab 04/14/18 Nitroglycerin Sl Tabs [Nitrostat] 0.4 mg SUBLINGUAL Q5M PRN #100 tab 06/24/18 Allergies Allergy/AdvReac Type Severity Reaction Status Date / Time cyclobenzaprine HCl Allergy Anaphylaxis Verified 11/10/18 18:39 [From Flexeril] Iodinated Contrast- Oral and Allergy Rash/Hives Verified 11/10/18 18:39 IV Dye iodine Allergy Rash/Hives, Verified 11/10/18 18:39 flushed,cris sea prochlorperazine edisylate Allergy Anaphylaxis Verified 11/10/18 18:39 [From Compazine] prochlorperazine maleate Allergy Anaphylaxis Verified 11/10/18 18:39 [From Compazine] codeine AdvReac Nausea & Verified 11/10/18 18:39 Vomiting Review of Systems ROS Statement: Those systems with pertinent positive or pertinent negative responses have been documented in the HPI. ROS Other: All systems not noted in ROS Statement are negative. Past Medical History Past Medical History: Coronary Artery Disease (CAD), Myocardial Infarction (SC) Additional Past Medical History / Comment(s): Recent falls-"I feel off balance. ", chronic R hip and back pain, recent R groin hematoma post PCI/stent, past arm infection (cannot recall laterality) pt states she was treated for 3 years and had picc lines-states it was not MRSA/VRE. Last Myocardial Infarction Date:: unknown History of Any Multi-Drug Resistant Organisms: None Reported Past Surgical History: Heart Catheterization With Stent, Orthopedic Surgery Additional Past Surgical History / Comment(s): 03/30/18 PCI with stents then post R groin hematoma, R hip fracture with surgery/hardware, colonoscopy, trachea damage with surgical repair 30 yrs ago, picc lines, kidney stone removal , ureteral stent which she believes has since been removed, hemorrhoidectomy. Past Anesthesia/Blood Transfusion Reactions: No Reported Reaction Date of Last Stent Placement:: 03/30/18 Past Psychological History: Depression Smoking Status: Current every day smoker Past Alcohol Use History: None Reported Past Drug Use History: None Reported - Past Family History Mother Family Medical History: Cancer Additional Family Medical History / Comment(s): Mother is from pancreatic cancer. Father Family Medical History: Cancer Additional Family Medical History / Comment(s): Father is . Pt thinks he passed from cancer but does not know what type. General Exam - General Exam Comments Initial Comments: GENERAL: Patient is well-developed and well-nourished. Patient is nontoxic and well- hydrated and is in mild distress. ENT: Neck is soft and supple. No significant lymphadenopathy is noted. Oropharynx is clear. Moist mucous membranes. Neck has full range of motion without eliciting any pain. EYES: The sclera were anicteric and conjunctiva were pink and moist. Extraocular movements were intact and pupils were equal round and reactive to light. Eyelids were unremarkable. PULMONARY: Unlabored respirations. Good breath sounds bilaterally. No audible rales rhonchi or wheezing was noted. CARDIOVASCULAR: There is a regular rate and rhythm without any murmurs gallops or rubs. ABDOMEN: Soft and nontender with normal bowel sounds. No palpable organomegaly was noted. There is no palpable pulsatile mass. SKIN: Skin is clear with no lesions or rashes and otherwise unremarkable. NEUROLOGIC: Patient is alert and oriented x3. Cranial nerves II through XII are grossly intact. Motor and sensory are also intact. Normal speech, volume and content. Symmetrical smile. Cerebellar exam grossly intact. MUSCULOSKELETAL: Normal extremities with adequate strength and full range of motion. LYMPHATICS: No significant lymphadenopathy is noted PSYCHIATRIC: Normal psychiatric evaluation. Limitations: no limitations Course Vital Signs 11/10/18 11/10/18 18:15 19:30 Temperature 98.2 F Pulse Rate 65 50 L Respiratory 18 18 Rate Blood Pressure 107/61 110/58 O2 Sat by Pulse 98 97 Oximetry Medical Decision Making - Medical Decision Making EKG shows sinus bradycardia 56 bpm TN interval 226 dresses 80 QT interval 424 QTC is 49 per patient's EKG shows no ST segment elevation or depression or T wave abnormalities are noted. Chest x-ray shows no acute abnormality. Because of the patient's unstable angina picture I started the patient on heparin. I spoke with Dr. Navarrete he agreed to admit the patient admitted the patient I wrote admitting orders I consult cardiology continued heparin and aspirin and Nitropaste on the floor. - Lab Data Result diagrams: 11/10/18 18:37 11/10/18 18:37 Lab Results 11/10/18 11/10/18 11/10/18 Range/Units 18:37 18:37 18:37 WBC 7.5 (3.8-10.6) k/uL RBC 4.08 (3.80-5.40) m/uL Hgb 13.5 (11.4-16.0) gm/dL Hct 41.5 (34.0-46.0) % MCV 101.6 H (80.0-100.0) fL MCH 33.0 (25.0-35.0) pg MCHC 32.5 (31.0-37.0) g/dL RDW 12.4 (11.5-15.5) % Plt Count 158 (150-450) k/uL Neutrophils % 70 % Lymphocytes % 22 % Monocytes % 4 % Eosinophils % 2 % Basophils % 0 % Neutrophils # 5.2 (1.3-7.7) k/uL Lymphocytes # 1.7 (1.0-4.8) k/uL Monocytes # 0.3 (0-1.0) k/uL Eosinophils # 0.1 (0-0.7) k/uL Basophils # 0.0 (0-0.2) k/uL PT (9.0-12.0) sec INR (<1.2) APTT (22.0-30.0) sec Sodium 140 (137-145) mmol/L Potassium 4.2 (3.5-5.1) mmol/L Chloride 110 H (98-107) mmol/L Carbon Dioxide 24 (22-30) mmol/L Anion Gap 6 mmol/L BUN 21 H (7-17) mg/dL Creatinine 0.82 (0.52-1.04) mg/dL Est GFR (CKD-EPI)AfAm >90 (>60 ml/min/1.73 sqM) Est GFR (CKD-EPI)NonAf 80 (>60 ml/min/1.73 sqM) Glucose 107 H (74-99) mg/dL Calcium 9.6 (8.4-10.2) mg/dL Magnesium 1.9 (1.6-2.3) mg/dL Total Bilirubin 0.5 (0.2-1.3) mg/dL AST 63 H (14-36) U/L ALT 75 H (9-52) U/L Alkaline Phosphatase 86 (38-126) U/L Total Creatine Kinase 66 (30-135) U/L CK-MB (CK-2) 1.2 (0.0-2.4) ng/mL CK-MB (CK-2) Rel Index 1.8 Troponin I <0.012 (0.000-0.034) ng/mL Total Protein 6.4 (6.3-8.2) g/dL Albumin 4.0 (3.5-5.0) g/dL 11/10/18 Range/Units 18:37 WBC (3.8-10.6) k/uL RBC (3.80-5.40) m/uL Hgb (11.4-16.0) gm/dL Hct (34.0-46.0) % MCV (80.0-100.0) fL MCH (25.0-35.0) pg MCHC (31.0-37.0) g/dL RDW (11.5-15.5) % Plt Count (150-450) k/uL Neutrophils % % Lymphocytes % % Monocytes % % Eosinophils % % Basophils % % Neutrophils # (1.3-7.7) k/uL Lymphocytes # (1.0-4.8) k/uL Monocytes # (0-1.0) k/uL Eosinophils # (0-0.7) k/uL Basophils # (0-0.2) k/uL PT 10.8 (9.0-12.0) sec INR 1.0 (<1.2) APTT 28.1 (22.0-30.0) sec Sodium (137-145) mmol/L Potassium (3.5-5.1) mmol/L Chloride (98-107) mmol/L Carbon Dioxide (22-30) mmol/L Anion Gap mmol/L BUN (7-17) mg/dL Creatinine (0.52-1.04) mg/dL Est GFR (CKD-EPI)AfAm (>60 ml/min/1.73 sqM) Est GFR (CKD-EPI)NonAf (>60 ml/min/1.73 sqM) Glucose (74-99) mg/dL Calcium (8.4-10.2) mg/dL Magnesium (1.6-2.3) mg/dL Total Bilirubin (0.2-1.3) mg/dL AST (14-36) U/L ALT (9-52) U/L Alkaline Phosphatase (38-126) U/L Total Creatine Kinase (30-135) U/L CK-MB (CK-2) (0.0-2.4) ng/mL CK-MB (CK-2) Rel Index Troponin I (0.000-0.034) ng/mL Total Protein (6.3-8.2) g/dL Albumin (3.5-5.0) g/dL Critical Care Time Critical Care Time: Yes Total Critical Care Time: 35 Disposition Clinical Impression: Unstable angina pectoris Disposition: ADMITTED IP TO THIS HOSP Referrals: Srini Alarcon MD [Primary Care Provider] - 1-2 days Time of Disposition: 19:57
[2018-11-10 19:03] LABS: Partial Thromboplastin Time 28.1 sec (22.0-30.0); Prothrombin Time 10.8 sec (9.0-12.0)
[2018-11-10 19:04] LABS: ALT 75 U/L (9-52); AST 63 U/L (14-36); Alkaline Phosphatase 86 U/L (38-126); Anion Gap 6 mmol/L; Blood Urea Nitrogen 21 mg/dL (7-17); Calcium 9.6 mg/dL (8.4-10.2); Carbon Dioxide 24 mmol/L (22-30); Chloride 110 mmol/L (98-107); Glucose 107 mg/dL (74-99); Magnesium 1.9 mg/dL (1.6-2.3); Potassium 4.2 mmol/L (3.5-5.1); Sodium 140 mmol/L (137-145); Total Bilirubin 0.5 mg/dL (0.2-1.3); Total Protein 6.4 g/dL (6.3-8.2)
[2018-11-10 19:07] LABS: Creatine Kinase 66 U/L (30-135)
[2018-11-10 19:10] LABS: Basophils % (A) 0 %; Eosinophils # (A) 0.1 k/uL (0-0.7); Eosinophils % (A) 2 %; HCT 41.5 % (34.0-46.0); HGB 13.5 gm/dL (11.4-16.0); Lymphocytes # (A) 1.7 k/uL (1.0-4.8); Lymphocytes % (A) 22 %; MCHC 32.5 g/dL (31.0-37.0); MCV 101.6 fL (80.0-100.0); Mean Platelet Volume 7.5; Monocytes # (A) 0.3 k/uL (0-1.0); Monocytes % (A) 4 %; Neutrophils # (A) 5.2 k/uL (1.3-7.7); Neutrophils % (A) 70 %; Platelet Count 158 k/uL (150-450); RBC 4.08 m/uL (3.80-5.40); RDW 12.4 % (11.5-15.5); WBC 7.5 k/uL (3.8-10.6)
[2018-11-10 19:20] LABS: Creatine Kinase MB 1.2 ng/mL (0.0-2.4); Troponin I <0.012 ng/mL (0.000-0.034)
[2018-11-10] MEDS ORDERED: HEPARIN SODIUM,PORCINE 5,000 UNIT/ML 1 ML VIAL IV ONE (19:42)
[2018-11-10] MEDS ORDERED: HEPARIN SOD,PORK IN 0.45% NACL 25,000 UNIT in 0.45% NACL 1 250ML.BAG IV SCH (19:45)
[2018-11-10] MEDS ORDERED: NITROGLYCERIN SL TABS 0.4 MG TAB SUBLINGUAL PRN (19:57)
--- NOTE | 2018-11-10 20:05 | XR ---
EXAMINATION TYPE: XR chest 2V DATE OF EXAM: 11/10/2018 COMPARISON: 06/21/2018 HISTORY: Chest pressure TECHNIQUE: Frontal and lateral views of the chest are obtained. FINDINGS: Heart is normal. Lungs are clear of consolidation. Costophrenic angles are clear. There ar e sternal wires. Bony thorax is intact. There are chest leads. IMPRESSION: No active cardiopulmonary disease. No change.
[2018-11-10] MEDS ORDERED: KETOROLAC 30 MG/ML 1 ML VIAL IVP STA (20:24)
[2018-11-10 21:21] VITALS: BMI 22.1
[2018-11-10] MEDS ORDERED: HYDROcodone/APAP 5-325MG 1 EACH TAB PO PRN (21:33)
[2018-11-10] MEDS ORDERED: ONDANSETRON 4 MG/2 ML VIAL IVP PRN (21:40)
[2018-11-10] MEDS: TEMAZEPAM 15 MG CAP PO PRN (21:55)
[2018-11-10] MEDS: MORPHINE SULFATE 2 MG/ML SYRINGE IVP PRN (21:55)
[2018-11-10] MEDS: ATORVASTATIN 80 MG TAB PO SCH (21:55)
[2018-11-10] MEDS: NITROGLYCERIN OINT 1 INCH/GM PACKET TOPICAL SCH (23:08)
[2018-11-11 02:07] LABS: Creatine Kinase 52 U/L (30-135)
[2018-11-11 02:20] LABS: Creatine Kinase MB 1.2 ng/mL (0.0-2.4); Troponin I <0.012 ng/mL (0.000-0.034)
[2018-11-11] MEDS: MORPHINE SULFATE 2 MG/ML SYRINGE IVP PRN ×3 (03:51→17:04)
[2018-11-11] MEDS: NITROGLYCERIN OINT 1 INCH/GM PACKET TOPICAL SCH (05:10)
--- NOTE | 2018-11-11 06:39 | HP ---
HISTORY AND PHYSICAL DATE OF SERVICE: 11/10/2018 CHIEF COMPLAINT: Chest pain. HISTORY OF PRESENT ILLNESS: This 58-year-old woman with a past medical history of multiple medical problems including history of CAD, history of myocardial infarction, history of CAD with stent, history of depression being followed by Dr. Alarcon and Dr. Donald in the outpatient setting was admitted with complaints of chest pain. The patient had pain for the last hour prior to admission and the patient had at least 2 stents in the past. The pain was pressure type of sensation, which is radiating to the back and also neck and jaws. The patient also had some shortness of breath. The pain was mild to moderate in intensity. There was no diaphoresis, nausea, vomiting, and the patient came to [facility] and admitted for further evaluation treatment. The initial troponins were negative. LFTs were slightly elevated. Otherwise, the EKG done on admission showed sinus bradycardia with nonprogression R wave in the anterior leads. Otherwise, there is no other acute changes noted. There is no history of any fever, rigors. No history headache, loss of consciousness, seizures. PAST MEDICAL HISTORY: History of CAD stent, history of myocardial infarction, history of falls, history of DJD, history of depression. MEDICATIONS: Medications prior to admission include home medications are: 1. Hydrocodone 1 tablet t.i.d. p.r.n. 2. Lipitor 80 mg q.h.s. 3. Lamictal 75 mg p.o. daily. 4. Nitrostat 0.4 sublingual p.r.n. 5. Zestril 10 mg daily. 6. Imdur 30 mg p.o. daily. 7. Prozac 40 mg daily. 8. Plavix 75 mg p.o. daily. 9. Ecotrin 81 mg p.o. daily. 10.Abilify 10 mg p.o. daily. ALLERGIES: Allergies are FLEXERIL, IODINATED CONTRAST IODINE, COMPAZINE, CODEINE. FAMILY HISTORY: History of cancer in the family. SOCIAL HISTORY: History of THC. History of nicotine dependence, continued ongoing. REVIEW OF SYSTEMS: ENT: No diminished hearing or diminished vision. CARDIOVASCULAR SYSTEM: As mentioned earlier. RESPIRATORY SYSTEM: As mentioned earlier. GI: No nausea. : No dysuria. NERVOUS SYSTEM: No numbness or weakness. ALLERGY/IMMUNOLOGY: No asthma or hayfever. MUSCULOSKELETAL: As mentioned earlier. HEMATOLOGY/ONCOLOGY: No history of anemia. ENDOCRINE: No history of diabetes or hypothyroidism. CONSTITUTIONAL: As mentioned earlier. DERMATOLOGY: Negative. RHEUMATOLOGY: Negative. PSYCHIATRY: As mentioned earlier. PHYSICAL EXAMINATION: Patient is alert, oriented x3. The pulse is 50, blood pressure 114/68, respiration 18, temperature 97.4, pulse ox 99% on 2 L. HEENT: Conjunctivae normal. Oral mucosa moist. Neck is no jugular venous distention. No carotid bruit. No lymph node enlargement. CARDIOVASCULAR: S1, S2 muffled. RESPIRATORY: Breath sounds diminished at the bases. A few scattered rhonchi. No crackles. ABDOMEN: Soft, nontender. LEGS: No edema, no swelling. NERVOUS SYSTEM: Higher functions as mentioned. Moves all 4 limbs. No focal deficits. LYMPHATICS: No lymphadenopathy of the neck, axillae or groin. SKIN: No ulcer, rash or bleeding. LABS: Labs at this time shows WBC 7.5, hemoglobin 13.5. Sodium 140, potassium 4.2. AST 63, ALT 75. ASSESSMENT: 1. Chest pain possible unstable angina. 2. Increased AST, ALT, possibly mild hepatitis of undetermined etiology. 3. History of coronary artery disease, myocardial infarction, stents. 4. History of degenerative joint disease. 5. History of depression. 6. History of suicidal attempt. 7. History of nicotine dependence. RECOMMENDATIONS AND DISCUSSION: This 58-year-old woman presented with multiple complex medical issues, we will monitor the patient closely. Continue the current medications. Continues symptomatic treatment. I recommend resume the home medications and I would also recommend repeat labs in the morning. Cardiology has been consulted. Rule out myocardial infarction. Symptomatic treatment also will be provided. Guarded prognosis because of the multiple complex medical issues. Further recommendations to follow. A copy of dictation forwarded to Dr. Alarcon who is the primary physician. MMODL / IJN: [id number] /
[2018-11-11 07:46] LABS: Basophils % (A) 1 %; Eosinophils # (A) 0.1 k/uL (0-0.7); Eosinophils % (A) 3 %; HCT 40.2 % (34.0-46.0); HGB 13.1 gm/dL (11.4-16.0); Lymphocytes # (A) 1.8 k/uL (1.0-4.8); Lymphocytes % (A) 39 %; MCHC 32.6 g/dL (31.0-37.0); MCV 101.1 fL (80.0-100.0); Mean Platelet Volume 7.9; Monocytes # (A) 0.2 k/uL (0-1.0); Monocytes % (A) 4 %; Neutrophils # (A) 2.3 k/uL (1.3-7.7); Neutrophils % (A) 50 %; Platelet Count 131 k/uL (150-450); RBC 3.97 m/uL (3.80-5.40); RDW 12.4 % (11.5-15.5); WBC 4.6 k/uL (3.8-10.6)
[2018-11-11 08:06] LABS: Creatine Kinase 44 U/L (30-135)
[2018-11-11 08:19] LABS: Creatine Kinase MB 1.1 ng/mL (0.0-2.4); Troponin I <0.012 ng/mL (0.000-0.034)
[2018-11-11 08:38] LABS: ALT 66 U/L (9-52); AST 47 U/L (14-36); Albumin 3.3 g/dL (3.5-5.0); Alkaline Phosphatase 72 U/L (38-126); Anion Gap 6 mmol/L; Blood Urea Nitrogen 20 mg/dL (7-17); Carbon Dioxide 22 mmol/L (22-30); Chloride 113 mmol/L (98-107); Cholesterol 116 mg/dL (<200); Glucose 79 mg/dL (74-99); HDL Cholesterol 60 mg/dL (40-60); LDL Cholesterol,Calculated 30 mg/dL (0-99); Potassium 4.3 mmol/L (3.5-5.1); Sodium 141 mmol/L (137-145); Total Bilirubin 0.5 mg/dL (0.2-1.3); Total Protein 5.8 g/dL (6.3-8.2); Triglycerides 130 mg/dL (<150)
[2018-11-11] MEDS ORDERED: ASPIRIN 325 MG TAB PO SCH (09:00)
[2018-11-11] MEDS ORDERED: ISOSORBIDE MONONITRATE ER 30 MG TAB.ER.24H PO SCH (09:00)
[2018-11-11] MEDS ORDERED: NON-FORMULARY DRUG (Aspirin [Adult Low Dose Aspirin Ec] 81 MG) PO SCH (09:00)
[2018-11-11] MEDS: ISOSORBIDE MONONITRATE ER 30 MG TAB.ER.24H PO STA ×2 (11:29→11:33)
[2018-11-11] MEDS: FLUoxetine HCL 20 MG CAP PO SCH (11:30)
[2018-11-11] MEDS: CLOPIDOGREL 75 MG TAB PO SCH (11:30)
[2018-11-11] MEDS: lamoTRIgine 25 MG TAB PO SCH (11:30)
[2018-11-11] MEDS: ARIPiprazole 10 MG TAB PO SCH (11:30)
[2018-11-11] MEDS: PANTOPRAZOLE 40 MG TABLET PO SCH (11:30)
[2018-11-11] MEDS: LISINOPRIL 10 MG TAB PO SCH (11:30)
--- NOTE | 2018-11-11 13:30 | P.CRDCN ---
History of Present Illness History of present illness: This is a pleasant 58-year-old female past medical history significant for coronary artery disease status post angioplasty of the RCA and total occlusion of the ostial LAD, hypertension, dyslipidemia, chronic nicotine dependence daily marijuana use. She follows with Dr. Donald in the office. She recently underwent cardiac catheterization in June of this year revealing total occlusion of the ostial LAD at which time she was referred to [facility] for further recommendation. She states she has seen him in consultation and she is supposed to follow-up with him January 03. She is currently dealing with which she describes as a mass in her throat that needs to be removed. The patient states that Dr. Rodriguez told her she would undergo potential angioplasty of her chronic total occlusion after this throat concern has been addressed. She presented to the hospital with symptoms of chest discomfort radiating through to her back. The discomfort is noted to be in the epigastric region and is described as a burning sensation. She took 3 sublingual nitroglycerin at home and achieved no relief of her discomfort. Upon arrival to the emergency department she was given Nitropaste and the symptoms slowly subsided. She denies associated shortness of breath, dizziness , palpitations, nausea, vomiting or diaphoresis. She continues to have epigastric discomfort intermittently throughout her admission with no specific aggravating or alleviating factors. EKG reveals sinus bradycardia heart rate 56 with poor R-wave progression. Chest x-ray negative for acute cardiopulmonary process. Most recent cardiac catheterization performed June 2018 revealed left main coronary artery is a small vessel free of stenosis, circumflex artery with mild nonobstructive disease, LAD occluded right at its origin with multiple collaterals from the circumflex to the LAD, RCA is a large dominant vessel with previously stented areas within the proximal and mid RCA patent with extensive collaterals to the distal LAD. There is a lesion noted within the ostial portion of the PLV branch that is unchanged from previous cath performed in March. Laboratory data reviewed, hemoglobin 13.1, platelets 131, WBC 4.6, sodium 141, potassium 4.3, creatinine 0.82, magnesium 1.9, cardiac enzymes negative 3, LDL 30 and HDL 60. Current cardiac medications include aspirin 81 mg daily, Plavix 75 mg daily, Imdur 30 mg daily, lisinopril 10 mg daily and atorvastatin 80 mg daily. At the time of my exam: CONSTITUTIONAL: Denies fever. Denies chills. EYES: Denies blurred vision. Denies vision changes. Denies eye pain. EARS, NOSE, MOUTH & THROAT: Denies headache. Denies sore throat. Denies ear pain. CARDIOVASCULAR: Denies chest pain. Denies shortness of breath. Denies orthopnea. Denies PND. Denies palpitations. RESPIRATORY: Denies cough. GASTROINTESTINAL: Denies abdominal pain. Denies diarrhea. Denies constipation. Denies nausea. Denies vomiting. MUSCULOSKELETAL: Denies myalgias. INTEGUMENTARY: Denies pruitis. Denies rash. NEUROLOGIC: Denies numbness. Denies tingling. Denies weakness. PSYCHIATRIC: Denies anxiety. Denies depression. ENDOCRINE: Denies fatigue. Denies weight change. Denies polydipsia. Denies polyurina. GENITOURINARY: Denies burning, hematuria or urgency with micturation. HEMATOLOGIC: Denies history of anemia. Denies bleeding. Blood pressure 102/64 heart rate 48 afebrile maintaining oxygen saturation on room air GENERAL: This is a 58-year-old female in no apparent distress at the time of my examination. Appears older than stated age. HEENT: Head is atraumatic, normocephalic. Pupils are equal, round. Sclerae anicteric. Conjunctivae are clear. Mucous membranes of the mouth are moist. Neck is supple. There is no jugular venous distention. No carotid bruit is heard. LUNGS: Clear to auscultation no wheezes, rales or rhonchi. No chest wall tenderness is noted on palpation or with deep breathing. HEART: Regular rate and rhythm without murmurs, rubs or gallops. S1 and S2 heard. ABDOMEN: Soft, nontender. Bowel sounds are heard. No organomegaly noted. EXTREMITIES: No evidence of peripheral edema and no calf tenderness noted. VASCULAR: Radial and dorsalis pedis pulses palpated, no evidence of clubbing. NEUROLOGIC: Patient is awake, alert and oriented x3. ASSESSMENT Epigastric pain, atypical for angina. An acute coronary event has been ruled out. History of coronary artery disease s/p angioplasty of RCA and total occlusion of the ostial LAD Difficulty swallowing Chronic nicotine dependence Daily marijuana use Hypertension Dyslipidemia PLAN An acute coronary event has been ruled out with no EKG evidence of ischemia and negative cardiac enzymes. Obtain ultrasound of the abdomen to assess further epigastric discomfort. Consult GI services to evaluate and treat. Continue with aspirin, atorvastatin, plavix and lisinopril. Increase imdur to 60 mg daily and add lopressor 25 mg BID. Ongoing medical management of epigastric discomfort and difficulty swallowing. Follow up with Dr. Donald upon discharge. Thank you kindly for this consultation. Nurse Practitioner note has been reviewed, I agree with a documented findings and plan of care. Patient was seen and examined. Past Medical History Past Medical History: Coronary Artery Disease (CAD), Myocardial Infarction ([place]) Additional Past Medical History / Comment(s): Recent falls-"I feel off balance. ", chronic R hip and back pain, recent R groin hematoma post PCI/stent, past arm infection (cannot recall laterality) pt states she was treated for 3 years and had picc lines-states it was not MRSA/VRE. Last Myocardial Infarction Date:: unknown History of Any Multi-Drug Resistant Organisms: None Reported Past Surgical History: Heart Catheterization With Stent, Orthopedic Surgery Additional Past Surgical History / Comment(s): 03/30/18 PCI with stents then post R groin hematoma, R hip fracture with surgery/hardware, colonoscopy, trachea damage with surgical repair 30 yrs ago, picc lines, kidney stone removal , ureteral stent which she believes has since been removed, hemorrhoidectomy. Past Anesthesia/Blood Transfusion Reactions: Postoperative Nausea & Vomiting ( PONV) Date of Last Stent Placement:: 03/30/18 Smoking Status: Current every day smoker - Past Family History Mother Family Medical History: Cancer Additional Family Medical History / Comment(s): Mother is from pancreatic cancer. Father Family Medical History: Cancer Additional Family Medical History / Comment(s): Father is . Pt thinks he passed from cancer but does not know what type. Medications and Allergies Home Medications Medication Instructions Recorded Confirmed Type FLUoxetine HCL [PROzac] 40 mg PO DAILY #14 cap 11/16/17 11/10/18 Rx ARIPiprazole [Abilify] 10 mg PO DAILY 03/24/18 11/10/18 History Aspirin [Adult Low Dose Aspirin EC] 81 mg PO DAILY 30 Days #30 03/31/18 Rx tablet. Clopidogrel [Plavix] 75 mg PO DAILY 30 Days #30 tablet 03/31/18 11/10/18 Rx lamoTRIgine [LaMICtal] 75 mg PO DAILY 04/13/18 11/10/18 History Atorvastatin [Lipitor] 80 mg PO HS #30 tab 04/14/18 11/10/18 Rx Lisinopril [Zestril] 10 mg PO DAILY #30 tab 04/14/18 11/10/18 Rx Isosorbide Mononitrate ER [Imdur] 30 mg PO DAILY 06/21/18 11/10/18 History Nitroglycerin Sl Tabs [Nitrostat] 0.4 mg SUBLINGUAL Q5M PRN #100 tab 06/24/18 Rx HYDROcodone/APAP 5-325MG [Squire 1 tab PO TID PRN 11/10/18 11/10/18 History 5-325] Allergies Allergy/AdvReac Type Severity Reaction Status Date / Time cyclobenzaprine HCl Allergy Anaphylaxis Verified 11/10/18 21:10 [From Flexeril] Iodinated Contrast- Oral and Allergy Rash/Hives Verified 11/10/18 21:10 IV Dye iodine Allergy Rash/Hives, Verified 11/10/18 21:10 flushed,cris sea prochlorperazine edisylate Allergy Anaphylaxis Verified 11/10/18 21:10 [From Compazine] prochlorperazine maleate Allergy Anaphylaxis Verified 11/10/18 21:10 [From Compazine] codeine AdvReac Nausea & Verified 11/10/18 21:10 Vomiting Physical Exam Vitals: Vital Signs Temp Pulse Pulse Resp BP BP Pulse Ox 11/11/18 08:00 97.9 F 58 L 18 112/61 97 11/11/18 04:00 98.0 F 49 L 16 108/61 97 11/11/18 00:00 98.0 F 45 L 16 111/62 97 11/10/18 20:50 97.4 F L 45 L 16 129/64 99 11/10/18 20:12 50 L 18 114/68 98 11/10/18 19:30 50 L 18 110/58 97 11/10/18 18:15 98.2 F 65 18 107/61 98 Intake and Output 11/10/18 11/11/18 11/11/18 22:59 06:59 14:59 Intake Total 48.96 Balance 48.96 Intake: Intake, IV Titration 48.96 Amount Heparin Sod,Pork in 0.45% 48.96 NaCl 25,000 unit In 0.45 % NaCl 1 250ml.bag @ 12 UNITS/KG/HR 6.8 mls/hr IV .Q24H [facility] Rx#:[id number] Other: # Voids 1 1 Weight 56.6 kg Results 11/11/18 07:04 11/11/18 07:04 Cardiac Enzymes 11/10/18 11/10/18 11/11/18 Range/Units 18:37 18:37 01:30 AST 63 H (14-36) U/L CK-MB (CK-2) 1.2 1.2 (0.0-2.4) ng/mL Troponin I <0.012 <0.012 (0.000-0.034) ng/mL 11/11/18 11/11/18 Range/Units 07:04 07:04 AST 47 H (14-36) U/L CK-MB (CK-2) 1.1 (0.0-2.4) ng/mL Troponin I <0.012 (0.000-0.034) ng/mL Coagulation 11/10/18 11/11/18 Range/Units 18:37 01:30 PT 10.8 (9.0-12.0) sec APTT 28.1 137.4 H* (22.0-30.0) sec Lipids 11/11/18 Range/Units 07:04 Triglycerides 130 (<150) mg/dL Cholesterol 116 (<200) mg/dL HDL Cholesterol 60 (40-60) mg/dL CBC 11/10/18 11/11/18 Range/Units 18:37 07:04 WBC 7.5 4.6 (3.8-10.6) k/uL RBC 4.08 3.97 (3.80-5.40) m/uL Hgb 13.5 13.1 (11.4-16.0) gm/dL Hct 41.5 40.2 (34.0-46.0) % Plt Count 158 131 L (150-450) k/uL Comprehensive Metabolic Panel 11/10/18 11/11/18 Range/Units 18:37 07:04 Sodium 140 141 (137-145) mmol/L Potassium 4.2 4.3 (3.5-5.1) mmol/L Chloride 110 H 113 H (98-107) mmol/L Carbon Dioxide 24 22 (22-30) mmol/L BUN 21 H 20 H (7-17) mg/dL Creatinine 0.82 0.82 (0.52-1.04) mg/dL Glucose 107 H 79 (74-99) mg/dL Calcium 9.6 9.0 (8.4-10.2) mg/dL AST 63 H 47 H (14-36) U/L ALT 75 H 66 H (9-52) U/L Alkaline Phosphatase 86 72 (38-126) U/L Total Protein 6.4 5.8 L (6.3-8.2) g/dL Albumin 4.0 3.3 L (3.5-5.0) g/dL Current Medications Generic Name Dose Route Start Last Admin Trade Name Freq PRN Reason Stop Dose Admin Hydrocodone Bitart/Acetaminophen 1 each 11/10/18 21:33 Squire 5-325 PO TID PRN Pain Aripiprazole 10 mg 11/11/18 09:00 Abilify PO DAILY [facility] Aspirin 325 mg 11/11/18 09:00 Aspirin PO DAILY [facility] Atorvastatin Calcium 80 mg 11/10/18 21:45 11/10/18 21:55 Lipitor PO 80 mg HS [facility] Administration Clopidogrel Bisulfate 75 mg 11/11/18 09:00 Plavix PO DAILY [facility] Fluoxetine HCl 40 mg 11/11/18 09:00 Prozac PO DAILY [facility] Heparin Sodium/Sodium Chloride 250 mls @ 6.8 mls/hr 11/10/18 19:45 11/11/18 03:22 25,000 unit/ Sodium Chloride IV 9 units/kg/hr .Q24H [facility] 5.1 mls/hr Titration Protocol 12 UNITS/KG/HR Isosorbide Mononitrate 30 mg 11/11/18 09:00 Imdur PO DAILY [facility] Lamotrigine 75 mg 11/11/18 09:00 Lamictal PO DAILY [facility] Lisinopril 10 mg 11/11/18 09:00 Zestril PO DAILY [facility] Morphine Sulfate 2 mg 11/10/18 21:36 11/11/18 08:46 Morphine Sulfate (Inj) IVP 2 mg Q4H PRN Administration Pain/Discomfort Nitroglycerin 1 inch 11/11/18 00:00 11/11/18 05:10 Nitro-Bid Oint TOPICAL Not Given Q6HR [facility] Nitroglycerin 0.4 mg 11/10/18 19:57 Nitrostat SUBLINGUAL Q5M PRN Chest Pain Ondansetron HCl 4 mg 11/10/18 21:40 Zofran IVP Q6HR PRN Nausea And Vomiting Pantoprazole Sodium 40 mg 11/11/18 07:30 Protonix PO AC-BRKFST [facility] Temazepam 15 mg 11/10/18 21:35 11/10/18 21:55 Restoril PO 15 mg HS PRN Administration Insomnia Intake and Output 11/10/18 11/11/18 11/11/18 22:59 06:59 14:59 Intake Total 48.96 Balance 48.96 Intake: Intake, IV Titration 48.96 Amount Heparin Sod,Pork in 0.45% 48.96 NaCl 25,000 unit In 0.45 % NaCl 1 250ml.bag @ 12 UNITS/KG/HR 6.8 mls/hr IV .Q24H [facility] Rx#:[id number] Other: # Voids 1 1 Weight 56.6 kg 11/11/18 07:04 11/11/18 07:04
[2018-11-11] MEDS: METOPROLOL TARTRATE 25 MG TAB PO SCH ×2 (14:32→20:54)
--- NOTE | 2018-11-11 16:57 | US ---
EXAMINATION TYPE: US abdomen complete DATE OF EXAM: 11/11/2018 COMPARISON: CT CLINICAL HISTORY: epigastric pain. EXAM MEASUREMENTS: Liver Length: 14.1 cm Gallbladder Wall: 0.2 cm CBD: 0.3 cm Spleen: 11.9 cm Right Kidney: 10.9 x 3.7 x 4.7 cm Left Kidney: 9.7 x 3.9 x 4.5 cm Pancreas: visualized portions wnl Liver: wnl Gallbladder: No stones seen Evidence for sonographic Bae's sign: No CBD: wnl Spleen: wnl Right Kidney: No hydronephrosis or masses seen Left Kidney: No hydronephrosis or masses seen Upper IVC: wnl Abd Aorta: wnl There is no evidence of ascites. IMPRESSION: Negative complete abdominal sonogram. No gallstones or dilated ducts. No hydronephrosis.
[2018-11-11] MEDS: TEMAZEPAM 15 MG CAP PO PRN (20:55)
[2018-11-11] MEDS: ATORVASTATIN 80 MG TAB PO SCH (20:55)
[2018-11-12 06:57] LABS: Basophils % (A) 1 %; Eosinophils # (A) 0.1 k/uL (0-0.7); Eosinophils % (A) 3 %; HCT 40.4 % (34.0-46.0); HGB 13.2 gm/dL (11.4-16.0); Lymphocytes # (A) 1.8 k/uL (1.0-4.8); Lymphocytes % (A) 45 %; MCH 33.6 pg (25.0-35.0); MCHC 32.6 g/dL (31.0-37.0); Macrocytosis Slight; Monocytes # (A) 0.2 k/uL (0-1.0); Monocytes % (A) 6 %; Neutrophils # (A) 1.7 k/uL (1.3-7.7); Neutrophils % (A) 42 %; Platelet Count 136 k/uL (150-450); RBC 3.92 m/uL (3.80-5.40); RDW 12.6 % (11.5-15.5)
[2018-11-12 07:06] LABS: ALT 74 U/L (9-52); AST 60 U/L (14-36); Albumin 3.6 g/dL (3.5-5.0); Alkaline Phosphatase 62 U/L (38-126); Anion Gap 3 mmol/L; Blood Urea Nitrogen 16 mg/dL (7-17); Calcium 9.5 mg/dL (8.4-10.2); Carbon Dioxide 28 mmol/L (22-30); Chloride 114 mmol/L (98-107); Glucose 90 mg/dL (74-99); Potassium 5.1 mmol/L (3.5-5.1); Sodium 145 mmol/L (137-145); Total Bilirubin 0.7 mg/dL (0.2-1.3); Total Protein 6.1 g/dL (6.3-8.2)
[2018-11-12] MEDS: FLUoxetine HCL 20 MG CAP PO SCH (08:42)
[2018-11-12] MEDS: CLOPIDOGREL 75 MG TAB PO SCH (08:43)
[2018-11-12] MEDS: MORPHINE SULFATE 2 MG/ML SYRINGE IVP PRN (08:43)
[2018-11-12] MEDS: METOPROLOL TARTRATE 25 MG TAB PO SCH (08:43)
[2018-11-12] MEDS: LISINOPRIL 10 MG TAB PO SCH (08:43)
[2018-11-12] MEDS: PANTOPRAZOLE 40 MG TABLET PO SCH (08:43)
[2018-11-12] MEDS: lamoTRIgine 25 MG TAB PO SCH (08:43)
[2018-11-12] MEDS: ARIPiprazole 10 MG TAB PO SCH (08:43)
[2018-11-12] MEDS ORDERED: ASPIRIN 81 MG PO SCH (09:00)
[2018-11-12] MEDS ORDERED: ISOSORBIDE MONONITRATE ER 60 MG TAB.ER.24H PO SCH (09:00)
[2018-11-12 09:33] VITALS: RESP 16
--- NOTE | 2018-11-12 11:14 | P.CONS ---
History of Present Illness - Reason for Consult Consult date: 11/12/18 Dysphagia Requesting physician: Lemuel Juarez - Chief Complaint Chest pain - History of Present Illness 58-year-old female admitted with acute chest pain. Past medical history of CAD PCI stent maintained on dual antiplatelet therapy, GERD, and intermittent chronic dysphagia. Patient was seen in consultation regarding dysphagia back in June 2018 at that time her recent cardiac intervention required her to remain on dual antiplatelet therapy and therefore was advised outpatient endoscopic workup. Barium swallow in June reported severe stenosis in the GE junction otherwise normal modified barium swallow. Repeat outpatient barium swallow 10/28/2018 reported mild to moderate persistent laryngeal penetration with thin barium and moderate lacunar residuals with thicker consistencies. No evidence of aspiration. She has been recently evaluated in the outpatient setting by clay stain mixer Dr. Richmond Ortiz and underwent EGD evaluation 10/06/2018 with findings of a normal esophagus mild gastritis. She reports intermittent dysphagia with all foods substances mostly in the upper esophageal region as well as the distal esophageal region. Sometimes she experiences emesis sometimes not. Denies hematemesis hematochezia melena. Approximate 5 pound weight loss over the last 3 months. Afebrile. White count 7.5. Hemoglobin 13.5. INR 1.0. Review of Systems Constitutional: Denies fever, chills, sweats, weight gain, or loss. HEENT: Negative for migraines, blurred vision or loss, earaches, drainage, tinnitus, oral mucosal lesions, dysphagia, or odynophagia. CARDIAC: Admitted with chest pain denies, arrhythmias, or palpitation. RESPIRATORY: Negative for shortness of breath, hemoptysis, cough, or sputum production. GI: See HPI for pertinent findings. : Negative for hematuria, urgency, frequency, polyuria, or dysuria. GYNc: Negative vaginal discharge. MUSCULOSKELETAL: Negative for muscle aches, swelling, arthritis, and arthralgias. NEUROLOGIC: Negative for stroke or TIA. ENDOCRINE: History of diabetes mellitus. Negative for thyroid problems. SKIN: Negative for rash or itching. PSYCHIATRIC: Negative history for depression and anxiety Past Medical History Past Medical History: Coronary Artery Disease (CAD), Myocardial Infarction ([place]) Additional Past Medical History / Comment(s): Recent falls-"I feel off balance. ", chronic R hip and back pain, recent R groin hematoma post PCI/stent, past arm infection (cannot recall laterality) pt states she was treated for 3 years and had picc lines-states it was not MRSA/VRE. Last Myocardial Infarction Date:: unknown History of Any Multi-Drug Resistant Organisms: None Reported Past Surgical History: Heart Catheterization With Stent, Orthopedic Surgery Additional Past Surgical History / Comment(s): 03/30/18 PCI with stents then post R groin hematoma, R hip fracture with surgery/hardware, colonoscopy, trachea damage with surgical repair 30 yrs ago, picc lines, kidney stone removal , ureteral stent which she believes has since been removed, hemorrhoidectomy. Past Anesthesia/Blood Transfusion Reactions: Postoperative Nausea & Vomiting ( PONV) Date of Last Stent Placement:: 03/30/18 Smoking Status: Current every day smoker - Past Family History Mother Family Medical History: Cancer Additional Family Medical History / Comment(s): Mother is from pancreatic cancer. Father Family Medical History: Cancer Additional Family Medical History / Comment(s): Father is . Pt thinks he passed from cancer but does not know what type. Medications and Allergies Home Medications Medication Instructions Recorded Confirmed Type FLUoxetine HCL [PROzac] 40 mg PO DAILY #14 cap 11/16/17 11/10/18 Rx ARIPiprazole [Abilify] 10 mg PO DAILY 03/24/18 11/10/18 History Aspirin [Adult Low Dose Aspirin EC] 81 mg PO DAILY 30 Days #30 03/31/18 Rx tablet. Clopidogrel [Plavix] 75 mg PO DAILY 30 Days #30 tablet 03/31/18 11/10/18 Rx lamoTRIgine [LaMICtal] 75 mg PO DAILY 04/13/18 11/10/18 History Atorvastatin [Lipitor] 80 mg PO HS #30 tab 04/14/18 11/10/18 Rx Lisinopril [Zestril] 10 mg PO DAILY #30 tab 04/14/18 11/10/18 Rx Nitroglycerin Sl Tabs [Nitrostat] 0.4 mg SUBLINGUAL Q5M PRN #100 tab 06/24/18 Rx HYDROcodone/APAP 5-325MG [Prim 1 tab PO TID PRN 11/10/18 11/10/18 History 5-325] Isosorbide Mononitrate ER [Imdur] 60 mg PO DAILY #30 tab.er.24h 11/12/18 Rx Allergies Allergy/AdvReac Type Severity Reaction Status Date / Time cyclobenzaprine HCl Allergy Anaphylaxis Verified 11/10/18 21:10 [From Flexeril] Iodinated Contrast- Oral and Allergy Rash/Hives Verified 11/10/18 21:10 IV Dye iodine Allergy Rash/Hives, Verified 11/10/18 21:10 flushed,cris sea prochlorperazine edisylate Allergy Anaphylaxis Verified 11/10/18 21:10 [From Compazine] prochlorperazine maleate Allergy Anaphylaxis Verified 11/10/18 21:10 [From Compazine] codeine AdvReac Nausea & Verified 11/10/18 21:10 Vomiting Physical Exam Vitals: Vital Signs Temp Pulse Resp BP BP Pulse Ox 11/12/18 08:00 97.6 F 47 L 16 119/72 99 11/12/18 04:00 97.2 F L 42 L 16 94/59 97 11/12/18 00:00 47 L 18 11/11/18 20:00 47 L 18 11/11/18 19:46 97.6 F 47 L 18 102/61 96 11/11/18 15:42 97.9 F 47 L 18 100/56 97 11/11/18 12:00 97.8 F 48 L 18 102/64 96 Intake and Output 11/11/18 11/12/18 11/12/18 22:59 06:59 14:59 Other: # Voids 1 1 General appearance: The patient is alert, oriented, in no acute distress. HET: Head is normocephalic and atraumatic. Pupils are equal and reactive. Oropharynx is clear without lesions. Neck: Supple without lymphadenopathy. Trachea midline. Heart: S1 S2. Regular rate and rhythm. Lungs: No crackles or wheezes are heard. Abdomen: Soft, nontender, nondistended with bowel sounds. No peritoneal signs. No palpable organomegaly or masses. Extremities: Normal skin color and turgor. No cyanosis, rash, ulceration, clubbing, or edema. Radial and pedal pulses are 2/4 bilaterally. Neurological: No focal deficits. Strength and sensation are grossly intact. Results CBC & Chem 7: 11/12/18 06:32 11/12/18 06:32 Labs: Abnormal Lab Results - Last 24 Hours (Table) 11/12/18 11/12/18 Range/Units 06:32 06:32 MCV 103.0 H (80.0-100.0) fL Plt Count 136 L (150-450) k/uL Chloride 114 H (98-107) mmol/L AST 60 H (14-36) U/L ALT 74 H (9-52) U/L Total Protein 6.1 L (6.3-8.2) g/dL Comments: Barium swallow 10/28/[address] Lugo Assessment and Plan (1) Dysphagia Narrative/Plan: Intermittent dysphagia without food substances with underlying history of GERD and CAD maintained on dual antiplatelet therapy. Recent outpatient EGD September 2018 identified a normal esophagus no evidence of stricture disease mild gastritis. Current Visit: No Status: Acute Code(s): R13.10 - DYSPHAGIA, UNSPECIFIED SNOMED Code(s): 04354520 (2) GERD (gastroesophageal reflux disease) Current Visit: Yes Status: Acute Code(s): K21.9 - GASTRO-ESOPHAGEAL REFLUX DISEASE WITHOUT ESOPHAGITIS SNOMED Code(s): 919183005 (3) Chest pain Current Visit: No Status: Acute Code(s): R07.9 - CHEST PAIN, UNSPECIFIED SNOMED Code(s): 72427340 (4) History of coronary artery disease Current Visit: No Status: Acute Code(s): Z86.79 - PERSONAL HISTORY OF OTHER DISEASES OF THE CIRCULATORY SYSTEM SNOMED Code(s): 238345002 Plan: 1. Recommend Protonix 40 mg daily. Modified food substance is to ease digestion for now. Repeat EGD is not planned at this time. Follow up in GI office in 2-3 weeks for reevaluation. Outpatient manometry discussed. Thank you for this kind referral and the opportunity to participate in the care of your patient. This consultation was discussed with Dr. Lugo. The impression and plan of care have been directed as dictated.
[2018-11-12 12:19] VITALS: BP 103/64; PULSE 51; TEMP 97.9
--- NOTE | 2018-11-13 07:32 | DS ---
DISCHARGE SUMMARY DATE OF SERVICE: 11/12/2018 FINAL DIAGNOSES: 1. Chest pain, possible gastroesophageal reflux disease. 2. Dysphagia with possible esophageal stenosis/stricture. 3. Increased AST, ALT, possibly mild hepatitis of undetermined etiology. 4. History of coronary artery disease, myocardial infarction, stent. 5. History of degenerative joint disease. 6. History of depression. 7. History of suicidal attempts. 8. History nicotine dependence. DISCHARGE DISPOSITION: The patient will be discharged in stable condition with guarded prognosis. HISTORY OF PRESENT ILLNESS: This 58-year-old woman with a past medical history of multiple medical problems admitted with chest pain, myocardial infarction ruled out. The patient also had dysphagia. Gastroenterology and Cardiology saw the patient. Cardiology recommended to follow up in the outpatient setting. Otherwise, Gastroenterology has recommended outpatient followup. The EGD is not being planned at this time. Follow up GI in 2 to 3 weeks as recommended. The patient follows with Dr. Alarcon in the outpatient setting. On exam, vitals are stable. CARDIOVASCULAR: S1, S2 muffled. ABDOMEN: Soft. NERVOUS SYSTEM: No focal deficits. DISCHARGE ADVICE: 1. Diet is cardiac. 2. Activity limited until followup. 3. Follow up with Dr. Alarcon in 2 to 3 days. 4. Followup with Dr. Donald and Dr. Lugo as recommended. MEDICATIONS ARE: 1. Abilify 10 mg p.o. daily. 2. Lostant 5 mg t.i.d. p.r.n. 3. Lamictal 75 mg p.o. daily. 4. Aspirin 81 mg p.o. daily. 5. Lipitor 80 mg q.h.s. 6. Plavix 75 mg p.o. daily. 7. Prozac 40 mg p.o. daily. 8. Imdur 60 mg p.o. daily. 9. Zestril 10 mg p.o. daily. 10.Nitrostat 0.4 sublingual p.r.n. 11.Protonix 40 mg with breakfast. Once again, the patient will be discharged in a stable condition with guarded prognosis. MMODL / IJN: [id number] /
== END 2018-11-12 15:20 | disposition home or self-care (01) ==
LOC: EC 18:11 → 1SOBS 19:57
PROVIDERS: ADMIT Hospitalist; ATTEND Hospitalist
DX: I25.110 Atherosclerotic heart disease of native coronary artery with unstable angina pectoris (principal); E78.5 Hyperlipidemia, unspecified; F17.200 Nicotine dependence, unspecified, uncomplicated; R13.10 Dysphagia, unspecified; K21.9 Gastro-esophageal reflux disease without esophagitis; I25.82 Chronic total occlusion of coronary artery; I10 Essential (primary) hypertension; I25.2 Old myocardial infarction; Z95.5 Presence of coronary angioplasty implant and graft; Z91.81 History of falling; Z87.442 Personal history of urinary calculi; Z80.0 Family history of malignant neoplasm of digestive organs; Z79.899 Other long term (current) drug therapy; Z79.82 Long term (current) use of aspirin; Z79.02 Long term (current) use of antithrombotics/antiplatelets
CPT/HCPCS: 96366 ×2; 96375; 96376 ×4; 96365; 99291; 36415; 93005; 80061; 80053 ×3; 82550 ×2; 82553 ×2; 83735; 84484 ×2; 85025 ×3; 85610; 85730 ×2; 71046; 76700; G0378 ×3; J1644 ×2; J1885; J2270 ×3

== ENCOUNTER → 2018-12-07 | Outpatient (CLI) | payer BC ==
--- NOTE | 2018-12-07 10:38 | MR ---
EXAMINATION TYPE: MR brain wo/w con DATE OF EXAM: 12/07/2018 COMPARISON: CT brain November 05, 2015 HISTORY: Papilledema, visual disturbance, tia all per order. Difficulty swallowing per patient. TECHNIQUE: Multiplanar, multisequence images of the brain and brainstem is performed without and with IV contras t, utilizing 8.5 mL intravenous Gadavist . FINDINGS: Diffusion weighted images demonstrate no evidence of a recent infarct or other diffusion ab normality. There is no extra-axial fluid collection or significant white matter signal abnormality. The ventricular system and cisternal spaces are normal in size and appearance. The brain volume is age appropriate. Midline structures demonstrate normal morphology. The craniocervical junction appears within normal limits. Post contrast images demonstrate no abnormal enhancement. The dural venous sinuses appear pa tent. The visualized sinuses are clear. The globes are intact bilaterally. Some patchy increased flui d signal left mastoid air cells are present. IMPRESSION: Perhaps mild left-sided mastoiditis versus retained secretions, correlate clinically othe rwise unremarkable study. No evidence of a recent infarct.
== END | disposition home or self-care (01) ==
LOC: RADMRIMAIN 08:45
PROVIDERS: ATTEND Otolaryngology
DX: H53.10 Unspecified subjective visual disturbances (principal); R40.4 Transient alteration of awareness; G45.9 Transient cerebral ischemic attack, unspecified; R13.10 Dysphagia, unspecified; R53.83 Other fatigue
CPT/HCPCS: 70553; A9585

== ENCOUNTER → 2019-03-02 | Outpatient (CLI) | payer BC ==
[2019-03-02 09:40] LABS: Basophils % (A) 1 %; Eosinophils # (A) 0.2 k/uL (0-0.7); Eosinophils % (A) 3 %; HCT 42.7 % (34.0-46.0); HGB 14.3 gm/dL (11.4-16.0); Lymphocytes # (A) 1.3 k/uL (1.0-4.8); Lymphocytes % (A) 22 %; MCHC 33.5 g/dL (31.0-37.0); MCV 101.4 fL (80.0-100.0); Mean Platelet Volume 8.3; Monocytes # (A) 0.3 k/uL (0-1.0); Monocytes % (A) 6 %; Neutrophils # (A) 3.8 k/uL (1.3-7.7); Neutrophils % (A) 66 %; Platelet Count 153 k/uL (150-450); RBC 4.21 m/uL (3.80-5.40); RDW 12.3 % (11.5-15.5); WBC 5.8 k/uL (3.8-10.6)
[2019-03-02 16:30] LABS: Albumin 4.2 g/dL (3.80-4.90); Albumin/Globulin Ratio 2.8 (1.60-3.17); Anion Gap 4.9 mmol/L (4.00-12.00); Calcium 9.2 mg/dL (8.7-10.3); Carbon Dioxide 26.1 mmol/L (21.6-31.8); Globulin 1.5 g/dL (1.6-3.3); LDL Cholesterol,Calculated 42.2 mg/dL (0.0-131.0); Potassium 4.4 mmol/L (3.5-5.5); Total Bilirubin 0.7 mg/dL (0.2-1.2); Total Protein 5.7 g/dL (6.2-8.2); VLDL Calculation 23.8 mg/dL (5.00-40.00)
[2019-03-02 18:40] LABS: Vitamin D 25 Hydroxy 35.9 ng/mL (30.0-100.0)
== END | disposition home or self-care (01) ==
LOC: LABWHC1 08:54
PROVIDERS: ATTEND Internal Medicine
DX: Z00.00 Encounter for general adult medical examination without abnormal findings (principal)
CPT/HCPCS: 36415; 80053; 80061; 82306; 82607; 84443; 85025

== ENCOUNTER 2022-01-25 13:11 | Observation (INO) | payer BC ==
[2022-01-25] MEDS ORDERED: NITROGLYCERIN OINT 1 INCH/GM PACKET TOPICAL STA (13:33)
[2022-01-25] MEDS ORDERED: SODIUM CHLORIDE 0.9% 1,000 ML IV STA (13:33)
--- NOTE | 2022-01-25 13:37 | ED ---
General Adult HPI - General Chief complaint: Chest Pain Stated complaint: chest pain Time Seen by Provider: 01/25/22 13:15 Source: patient, EMS, RN notes reviewed, old records reviewed Mode of arrival: EMS Limitations: no limitations - History of Present Illness Initial comments: This is a 61-year-old female presents to the emergency department this com plaining that earlier today when she was cooking she started having chest pain and became very short of breath. Patient states she thought she was given a passout. When paramedics arrived she was bradycardic at about 52 beats a minute and also hypotensive. Patient states after about 20-30 minutes she felt considerably better according to EMS her heart rate went up into the 60s and her blood pressure returned to normal. Patient states currently she is chest pain- free. Patient states she does have a history of high blood pressure and maybe high cholesterol she also was a smoker and has a strong family history of heart disease. Patient denies any recent fever chills or cough per patient denies abdominal pain patient denies nausea vomiting diarrhea. Patient denies any swelling to the legs or calf tenderness. - Related Data Home Medications Medication Instructions Recorded Confirmed ARIPiprazole [Abilify] 10 mg PO DAILY 03/24/18 11/10/18 lamoTRIgine [LaMICtal] 75 mg PO DAILY 04/13/18 11/10/18 HYDROcodone/APAP 5-325MG [[place] 1 tab PO TID PRN 11/10/18 11/10/18 5-325] Previous Rx's Medication Instructions Recorded FLUoxetine HCL [PROzac] 40 mg PO DAILY #14 cap 11/16/17 Aspirin [Adult Low Dose Aspirin EC] 81 mg PO DAILY 30 Days #30 03/31/18 tablet. Clopidogrel [Plavix] 75 mg PO DAILY 30 Days #30 tablet 03/31/18 Atorvastatin [Lipitor] 80 mg PO HS #30 tab 04/14/18 lisinopriL [Zestril] 10 mg PO DAILY #30 tab 04/14/18 Nitroglycerin Sl Tabs [Nitrostat] 0.4 mg SUBLINGUAL Q5M PRN #100 tab 06/24/18 Isosorbide Mononitrate ER [Imdur] 60 mg PO DAILY #30 tab.er.24h 11/12/18 Pantoprazole [Protonix] 40 mg PO AC-BRKFST #30 tablet. 11/12/18 Allergies Allergy/AdvReac Type Severity Reaction Status Date / Time cyclobenzaprine HCl Allergy Anaphylaxis Verified 11/10/18 21:10 [From Flexeril] Iodinated Contrast Media Allergy Rash/Hives Verified 11/10/18 21:10 [Iodinated Contrast- Oral and IV Dye] iodine Allergy Rash/Hives, Verified 11/10/18 21:10 flushed,cris sea prochlorperazine edisylate Allergy Anaphylaxis Verified 11/10/18 21:10 [From Compazine] prochlorperazine maleate Allergy Anaphylaxis Verified 11/10/18 21:10 [From Compazine] codeine AdvReac Nausea & Verified 11/10/18 21:10 Vomiting Review of Systems ROS Statement: Those systems with pertinent positive or pertinent negative responses have been documented in the HPI. ROS Other: All systems not noted in ROS Statement are negative. Past Medical History Past Medical History: Coronary Artery Disease (CAD), Myocardial Infarction (MD) Additional Past Medical History / Comment(s): Recent falls-"I feel off balance.", chronic R hip and back pain, recent R groin hematoma post PCI/stent, past arm infection (cannot recall laterality) pt states she was treated for 3 years and had picc lines-states it was not MRSA/VRE. Last Myocardial Infarction Date:: unknown History of Any Multi-Drug Resistant Organisms: None Reported Past Surgical History: Heart Catheterization With Stent, Orthopedic Surgery Additional Past Surgical History / Comment(s): 03/30/18 PCI with stents then post R groin hematoma, R hip fracture with surgery/hardware, colonoscopy, trachea damage with surgical repair 30 yrs ago, picc lines, kidney stone removal, ureteral stent which she believes has since been removed, hemorrhoidectomy. Past Anesthesia/Blood Transfusion Reactions: Postoperative Nausea & Vomiting (PONV) Date of Last Stent Placement:: 03/30/18 Past Psychological History: Depression Smoking Status: Current every day smoker Past Alcohol Use History: None Reported Past Drug Use History: Marijuana - Past Family History Mother Family Medical History: Cancer Additional Family Medical History / Comment(s): Mother is from pancreatic cancer. Father Family Medical History: Cancer Additional Family Medical History / Comment(s): Father is . Pt thinks he passed from cancer but does not know what type. General Exam - General Exam Comments Initial Comments: GENERAL: Patient is well-developed and well-nourished. Patient is nontoxic and well-hy drated and is in mild distress. ENT: Neck is soft and supple. No significant lymphadenopathy is noted. Oropharynx is clear. Moist mucous membranes. Neck has full range of motion without eliciting any pain. EYES: The sclera were anicteric and conjunctiva were pink and moist. Extraocular movements were intact and pupils were equal round and reactive to light. Eyelids were unremarkable. PULMONARY: Unlabored respirations. Good breath sounds bilaterally. No audible rales rhonchi or wheezing was noted. CARDIOVASCULAR: There is a regular rate and rhythm without any murmurs gallops or rubs. ABDOMEN: Soft and nontender with normal bowel sounds. SKIN: Skin is clear with no lesions or rashes and otherwise unremarkable. NEUROLOGIC: Patient is alert and oriented x3. Cranial nerves II through XII are grossly intact. Motor and sensory are also intact. Normal speech, volume and content. Symmetrical smile. MUSCULOSKELETAL: Normal extremities with adequate strength and full range of motion. No lower extremity swelling or edema. No calf tenderness. LYMPHATICS: No significant lymphadenopathy is noted PSYCHIATRIC: Normal psychiatric evaluation. 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 Patient's EKG shows no ST segment elevation or depression. Chest x-ray shows no acute abnormality. I spoke with sounds physician's and he agreed to admit the patient admitted the patient wrote admitting orders I consulted cardiology - Lab Data Result diagrams: 01/25/22 13:44 01/25/22 13:44 Lab Results 01/25/22 01/25/22 01/25/22 Range/Units 13:44 13:44 13:44 WBC 4.7 (3.8-10.6) k/uL RBC 3.96 (3.80-5.40) m/uL Hgb 12.5 (11.4-16.0) gm/dL Hct 38.6 (34.0-46.0) % MCV 97.5 (80.0-100.0) fL MCH 31.5 (25.0-35.0) pg MCHC 32.3 (31.0-37.0) g/dL RDW 14.9 (11.5-15.5) % Plt Count 194 (150-450) k/uL MPV 7.9 Neutrophils % 62 % Lymphocytes % 26 % Monocytes % 6 % Eosinophils % 2 % Basophils % 1 % Neutrophils # 2.9 (1.3-7.7) k/uL Lymphocytes # 1.2 (1.0-4.8) k/uL Monocytes # 0.3 (0-1.0) k/uL Eosinophils # 0.1 (0-0.7) k/uL Basophils # 0.0 (0-0.2) k/uL PT 10.7 (9.0-12.0) sec INR 1.0 (<1.2) APTT 26.5 (22.0-30.0) sec Sodium 138 (137-145) mmol/L Potassium 4.3 (3.5-5.1) mmol/L Chloride 107 (98-107) mmol/L Carbon Dioxide 25 (22-30) mmol/L Anion Gap 6 mmol/L BUN 13 (7-17) mg/dL Creatinine 0.88 (0.52-1.04) mg/dL Est GFR (CKD-EPI)AfAm 83 (>60 ml/min/1.73 sqM) Est GFR (CKD-EPI)NonAf 72 (>60 ml/min/1.73 sqM) Glucose 108 H (74-99) mg/dL Calcium 8.4 (8.4-10.2) mg/dL Magnesium 2.1 (1.6-2.3) mg/dL Total Bilirubin 0.6 (0.2-1.3) mg/dL AST 31 (14-36) U/L ALT 29 (4-34) U/L Alkaline Phosphatase 137 H (38-126) U/L Troponin I (0.000-0.034) ng/mL Total Protein 6.1 L (6.3-8.2) g/dL Albumin 3.7 (3.5-5.0) g/dL 03/18/22 Range/Units 13:44 WBC (3.8-10.6) k/uL RBC (3.80-5.40) m/uL Hgb (11.4-16.0) gm/dL Hct (34.0-46.0) % MCV (80.0-100.0) fL MCH (25.0-35.0) pg MCHC (31.0-37.0) g/dL RDW (11.5-15.5) % Plt Count (150-450) k/uL MPV Neutrophils % % Lymphocytes % % Monocytes % % Eosinophils % % Basophils % % Neutrophils # (1.3-7.7) k/uL Lymphocytes # (1.0-4.8) k/uL Monocytes # (0-1.0) k/uL Eosinophils # (0-0.7) k/uL Basophils # (0-0.2) k/uL PT (9.0-12.0) sec INR (<1.2) APTT (22.0-30.0) sec Sodium (137-145) mmol/L Potassium (3.5-5.1) mmol/L Chloride (98-107) mmol/L Carbon Dioxide (22-30) mmol/L Anion Gap mmol/L BUN (7-17) mg/dL Creatinine (0.52-1.04) mg/dL Est GFR (CKD-EPI)AfAm (>60 ml/min/1.73 sqM) Est GFR (CKD-EPI)NonAf (>60 ml/min/1.73 sqM) Glucose (74-99) mg/dL Calcium (8.4-10.2) mg/dL Magnesium (1.6-2.3) mg/dL Total Bilirubin (0.2-1.3) mg/dL AST (14-36) U/L ALT (4-34) U/L Alkaline Phosphatase (38-126) U/L Troponin I <0.012 (0.000-0.034) ng/mL Total Protein (6.3-8.2) g/dL Albumin (3.5-5.0) g/dL Disposition Clinical Impression: Bradycardia, Chest pain Disposition: ADMITTED IP TO THIS [facility] Referrals: Yordy Westbrook DO [Primary Care Provider] - 1-2 days Time of Disposition: 14:39
[2022-01-25 13:58] LABS: Basophils % (A) 1 %; Eosinophils # (A) 0.1 k/uL (0-0.7); Eosinophils % (A) 2 %; HCT 38.6 % (34.0-46.0); HGB 12.5 gm/dL (11.4-16.0); Lymphocytes # (A) 1.2 k/uL (1.0-4.8); Lymphocytes % (A) 26 %; MCH 31.5 pg (25.0-35.0); MCHC 32.3 g/dL (31.0-37.0); MCV 97.5 fL (80.0-100.0); Mean Platelet Volume 7.9; Monocytes # (A) 0.3 k/uL (0-1.0); Monocytes % (A) 6 %; Neutrophils # (A) 2.9 k/uL (1.3-7.7); Neutrophils % (A) 62 %; Platelet Count 194 k/uL (150-450); RBC 3.96 m/uL (3.80-5.40); RDW 14.9 % (11.5-15.5); WBC 4.7 k/uL (3.8-10.6)
--- NOTE | 2022-01-25 14:01 | XR ---
EXAMINATION TYPE: XR chest 2V DATE OF EXAM: 01/25/2022 COMPARISON: NONE TECHNIQUE: PA and lateral views submitted. HISTORY: Chest pain FINDINGS: The lungs are clear and there is no pneumothorax, pleural effusion, or focal pneumonia. Postoperati ve change. Coronary stenting noted. Hypertrophic and degenerative change of the spine. Coarsened inte rstitium. IMPRESSION: 1. Correlate for chronic interstitial lung disease. Mild venous congestion or interstitial pneumoniti s not excluded.
[2022-01-25 14:07] LABS: Partial Thromboplastin Time 26.5 sec (22.0-30.0); Prothrombin Time 10.7 sec (9.0-12.0)
[2022-01-25 14:10] LABS: Albumin 3.7 g/dL (3.5-5.0); Calcium 8.4 mg/dL (8.4-10.2); Magnesium 2.1 mg/dL (1.6-2.3); Potassium 4.3 mmol/L (3.5-5.1); Total Bilirubin 0.6 mg/dL (0.2-1.3); Total Protein 6.1 g/dL (6.3-8.2)
[2022-01-25] MEDS ORDERED: NITROGLYCERIN SL TABS 0.4 MG TAB SUBLINGUAL PRN (14:54)
[2022-01-25] MEDS ORDERED: ACETAMINOPHEN TAB 325 MG TAB PO PRN (15:35)
[2022-01-25] MEDS ORDERED: NALOXONE 0.4 MG/ML 10 ML VIAL IVP PRN (15:35)
[2022-01-25] MEDS ORDERED: HYDROcodone/APAP 5-325MG 1 EACH TAB PO PRN (16:10)
[2022-01-25] MEDS ORDERED: NICOTINE 21MG/24HR PATCH TRANSDERM PRN (16:10)
[2022-01-25] MEDS ORDERED: NALOXONE 0.4 MG/ML 1 ML VIAL IVP PRN (16:20)
--- NOTE | 2022-01-25 16:26 | P.HPIM ---
History of Present Illness H&P Date: 01/25/22 Chief Complaint: Chest pain 61-year-old woman with medical history of CAD status post 5 x stents as well as chronic total occlusion of the LAD, hypertension/hyperlipidemia, active smoker, GERD with possible esophageal stricture, mood disorder, hypothyroidism presented for chest pain. Patient says that she initially had an episode of substernal chest pain yesterday night for which she took a sublingual nitroglycerin and her pain had improved completely. However, today she noticed that her pain returned, and do not go away despite multiple tests and nitroglycerin. The refore, she presented to the hospital for further evaluation as this pain felt similar to her previous heart attacks. She denies fevers, chills, palpitations, cough, dyspnea, abdominal pain, dysuria, dyschezia, numbness/weakness or tremors. She did report nausea associated with the pain. In the emergency room, patient is afebrile, 114/62, heart rate is 72, 90 in percent on room air. CBC is unremarkable. Chemistries are unremarkable. LFTs are significant for mild elevation of alkaline phosphatase to 137 and mildly low total protein 6.1. Coags were unremarkable. Initial troponin was negative. No BNP. EKG demonstrated normal sinus rhythm with low amplitude voltage, no ischemic changes, normal axis, normal intervals. Chest x-ray demonstrates coarsened interstitial with recommendations to correlate for chronic interstitial lung disease or mild venous congestion versus interstitial pneumonitis. All Systems reviewed and pertinent positives and negatives noted in HPI, all other symptoms are negative Gen: awake, alert HEENT: normocephalic, atraumatic, good hearing acuity, moist mucous membranes Resp: good air exchange, breathing comfortably with no accessory muscle use CVS: good distal perfusion x 4, regular rate and rhythm, late blowing systolic murmur GI: soft, NTTP, ND : no SPT, no CVAT, maddox catheter not present MSK: no pitting edema, no clubbing Neuro: non-focal, moving all extremities Psych: cooperative, euthymic mood Labs and imaging are reviewed as above Assessment/plan: Chest pain, typical History of CAD -Admit to observation, telemetry -Cardiology consulted -Trend troponins -Nitro when necessary for chest pain -EKG when necessary for chest pain -Aspirin, Plavix, statin, Imdur -Continue Coreg -Echo pending -Nothing by mouth at midnight for likely procedure -TSH, A1c, lipid panel Hypertension Hyperlipidemia Active nicotine use Hypothyroidism GERD with possible esophageal stricture Mood disorder -Home medications reviewed and reconciled Patient is a no code DVT prophylaxis covered with Lovenox daily Past Medical History Past Medical History: Coronary Artery Disease (CAD), Myocardial Infarction (NH) Additional Past Medical History / Comment(s): Recent falls-"I feel off balance.", chronic R hip and back pain, recent R groin hematoma post PCI/stent, past arm infection (cannot recall laterality) pt states she was treated for 3 years and had picc lines-states it was not MRSA/VRE. Last Myocardial Infarction Date:: unknown History of Any Multi-Drug Resistant Organisms: None Reported Past Surgical History: Heart Catheterization With Stent, Orthopedic Surgery Additional Past Surgical History / Comment(s): 03/30/18 PCI with stents then post R groin hematoma, R hip fracture with surgery/hardware, colonoscopy, trachea damage with surgical repair 30 yrs ago, picc lines, kidney stone removal, ureteral stent which she believes has since been removed, hemorrhoidectomy. Past Anesthesia/Blood Transfusion Reactions: Postoperative Nausea & Vomiting (PONV) Date of Last Stent Placement:: 03/30/18 Past Psychological History: Depression Smoking Status: Current every day smoker Past Alcohol Use History: None Reported Past Drug Use History: Marijuana - Past Family History Mother Family Medical History: Cancer Additional Family Medical History / Comment(s): Mother is from pancreatic cancer. Father Family Medical History: Cancer Additional Family Medical History / Comment(s): Father is . Pt thinks he passed from cancer but does not know what type. Medications and Allergies Home Medications Medication Instructions Recorded Confirmed Type FLUoxetine HCL [PROzac] 40 mg PO DAILY #14 cap 11/16/17 01/25/22 Rx Aspirin [Adult Low Dose Aspirin EC] 81 mg PO DAILY 30 Days #30 03/31/18 01/25/22 Rx tablet. Clopidogrel [Plavix] 75 mg PO DAILY 30 Days #30 tablet 03/31/18 01/25/22 Rx lamoTRIgine [LaMICtal] 150 mg PO DAILY 04/13/18 01/25/22 History HYDROcodone/APAP 5-325MG [[place] 1 tab PO TID PRN 11/10/18 01/25/22 History 5-325] Atorvastatin [Lipitor] 80 mg PO DAILY 01/25/22 01/25/22 History Isosorbide Mononitrate ER [Imdur] 60 mg PO BID 01/25/22 01/25/22 History Levothyroxine Sodium [Levoxyl] 88 mcg PO DAILY 01/25/22 01/25/22 History Nicotine 21Mg/24Hr Patch [Habitrol] 1 patch TRANSDERM DAILY PRN 01/25/22 01/25/22 History Nitroglycerin Sl Tabs [Nitrostat] 0.4 mg SL Q5M PRN 01/25/22 01/25/22 History Pantoprazole [Protonix] 40 mg PO DAILY 01/25/22 01/25/22 History amLODIPine [Norvasc] 5 mg PO DAILY 01/25/22 01/25/22 History carvediloL [Coreg] 6.25 mg PO BID 01/25/22 01/25/22 History lisinopriL 40 mg PO DAILY 01/25/22 01/25/22 History valACYclovir HCL [Valtrex] 1,000 mg PO DAILY 01/25/22 01/25/22 History Allergies Allergy/AdvReac Type Severity Reaction Status Date / Time cyclobenzaprine HCl Allergy Anaphylaxis Verified 01/25/22 15:34 [From Flexeril] Iodinated Contrast Media Allergy Rash/Hives Verified 01/25/22 15:34 [Iodinated Contrast- Oral and IV Dye] iodine Allergy Rash/Hives, Verified 01/25/22 15:34 flushed,cris sea Penicillins Allergy Dyspnea Verified 01/25/22 15:34 prochlorperazine edisylate Allergy Anaphylaxis Verified 01/25/22 15:34 [From Compazine] prochlorperazine maleate Allergy Anaphylaxis Verified 01/25/22 15:34 [From Compazine] codeine AdvReac Nausea & Verified 01/25/22 15:34 Vomiting & itch Physical Exam Osteopathic Statement: *. No significant issues noted on an osteopathic structural exam other than those noted in the History and Physical/Consult. Vitals: Vital Signs Temp Pulse Pulse Resp BP Pulse Ox 01/25/22 14:11 56 L 16 105/63 99 01/25/22 13:17 69 01/25/22 13:13 98.0 F 72 16 114/62 99 Intake and Output 01/25/22 01/25/22 01/25/22 06:59 14:59 22:59 Other: Weight 58.06 kg Results CBC & Chem 7: 01/25/22 13:44 01/25/22 13:44 Labs: Abnormal Lab Results - Last 24 Hours (Table) 01/25/22 Range/Units 13:44 Glucose 108 H (74-99) mg/dL Alkaline Phosphatase 137 H (38-126) U/L Total Protein 6.1 L (6.3-8.2) g/dL
[2022-01-25] MEDS: ATORVASTATIN 80 MG TAB PO SCH (16:58)
[2022-01-25] MEDS: carvediloL 6.25 MG TAB PO SCH (16:58)
[2022-01-25] MEDS ORDERED: NITROGLYCERIN OINT 1 INCH/GM PACKET TOPICAL SCH (19:00)
[2022-01-25] MEDS: ISOSORBIDE MONONITRATE ER 60 MG TAB.ER.24H PO SCH ×2 (20:18→20:20)
[2022-01-25] MEDS: HYDROcodone/APAP 7.5-325MG 1 EACH TAB PO PRN (21:46)
[2022-01-26 04:00] VITALS: PULSE 61; TEMP 98.3
[2022-01-26 05:15] LABS: Basophils % (A) 1 %; Eosinophils # (A) 0.1 k/uL (0-0.7); Eosinophils % (A) 3 %; HCT 37.1 % (34.0-46.0); HGB 11.9 gm/dL (11.4-16.0); Hypochromasia Slight; Lymphocytes # (A) 1.5 k/uL (1.0-4.8); Lymphocytes % (A) 36 %; MCH 32.1 pg (25.0-35.0); MCHC 32.2 g/dL (31.0-37.0); MCV 99.7 fL (80.0-100.0); Macrocytosis Slight; Mean Platelet Volume 8.2; Monocytes # (A) 0.2 k/uL (0-1.0); Monocytes % (A) 6 %; Neutrophils # (A) 2.1 k/uL (1.3-7.7); Neutrophils % (A) 51 %; Platelet Count 164 k/uL (150-450); RBC 3.72 m/uL (3.80-5.40); RDW 14.9 % (11.5-15.5); WBC 4.1 k/uL (3.8-10.6)
[2022-01-26 05:25] LABS: African American GFR (CKD) >90 (>60 ml/min/1.73 sqM); Anion Gap 5 mmol/L; Blood Urea Nitrogen 14 mg/dL (7-17); Calcium 8.5 mg/dL (8.4-10.2); Carbon Dioxide 22 mmol/L (22-30); Chloride 111 mmol/L (98-107); Glucose 113 mg/dL (74-99); Magnesium 1.9 mg/dL (1.6-2.3); Non-African American GFR(CKD) 87 (>60 ml/min/1.73 sqM); Potassium 4.2 mmol/L (3.5-5.1); Sodium 138 mmol/L (137-145)
[2022-01-26] MEDS: LEVOTHYROXINE 88 MCG TAB PO SCH ×2 (05:40→05:41)
[2022-01-26] MEDS: HYDROcodone/APAP 7.5-325MG 1 EACH TAB PO PRN (05:52)
[2022-01-26] MEDS ORDERED: PANTOPRAZOLE 40 MG TABLET PO SCH (07:30)
[2022-01-26 07:51] VITALS: RESP 15
[2022-01-26] MEDS ORDERED: amLODIPine 5 MG TAB PO SCH (09:00)
[2022-01-26] MEDS ORDERED: CLOPIDOGREL 75 MG TAB PO SCH (09:00)
[2022-01-26] MEDS ORDERED: lamoTRIgine 100 MG TAB PO SCH (09:00)
[2022-01-26] MEDS ORDERED: lisinopriL 20 MG TAB PO SCH (09:00)
[2022-01-26] MEDS ORDERED: valACYclovir HCL 1,000 MG TABLET PO SCH (09:00)
[2022-01-26] MEDS ORDERED: ENOXAPARIN 40 MG/0.4 ML SYRINGE SQ SCH (09:00)
[2022-01-26] MEDS ORDERED: ASPIRIN 325 MG TAB PO SCH (09:00)
[2022-01-26] MEDS ORDERED: ASPIRIN 81 MG PO SCH (09:00)
[2022-01-26] MEDS ORDERED: FLUoxetine HCL 20 MG CAP PO SCH (09:00)
[2022-01-26] MEDS: ATORVASTATIN 80 MG TAB PO SCH (09:01)
[2022-01-26] MEDS: ISOSORBIDE MONONITRATE ER 60 MG TAB.ER.24H PO SCH (09:14)
[2022-01-26 09:17] LABS: Chol/HDL Ratio 2.65 Ratio; LDL Cholesterol,Calculated 40.4 mg/dL (0.0-131.0)
--- NOTE | 2022-01-26 10:10 | P.CRDCN ---
History of Present Illness History of present illness: HISTORY OF PRESENTING ILLNESS Patient is pleasant 61-year-old female with history of CAD status post PCI RCA as well as PCI of CT LAD, hypertension, hyperlipidemia, tobacco abuse, marijuana use, chronic chest pains who presents secondary chest pain. She states she initially had stenting of her WATER PURIFICATION CHEMIST back approximately 18 months ago at [facility] and unfortunately her chest pains did not improve much. She normally has to take a nitroglycerin and after a while the chest pains will go away. Due to ongoing chest pains she saw her primary retail supervisor from [facility] who ordered a Holter monitor which she has not picked up yet as well as a heart catheterization. She states she had another episode where she had chest pain and somewhat nauseous however it then was feeling somewhat lightheaded and therefore has been check blood pressure and was reportedly in the 70s systolic and therefore she was not able to take a nitroglycerin. She came to emergency department was given nitro and eventually pain improved. Troponins have all been normal 4, EKG unrevealing with sinus rhythm without any significant arrhythmias on telemetry. She is still smoking. She denies any recent changes to her medications. She is unsure why her blood pressure is lower as normally is somewhat on the higher end and is on a number of medications. She has had a dry cough for last few days however attributes this to her tobacco abuse. REVIEW OF SYSTEMS At the time of my exam: CONSTITUTIONAL: Denies fever or chills. CARDIOVASCULAR: +chest pain, no shortness of breath, orthopnea, PND or palpitations. RESPIRATORY: Denies cough. GASTROINTESTINAL: Denies abdominal pain, diarrhea, constipation, +nausea, no vomiting. MUSCULOSKELETAL: Denies myalgias. NEUROLOGIC: Denies numbness, tingling or weakness. ENDOCRINE: Denies fatigue, weight change, polydipsia or polyurina. GENITOURINARY: Denies burning, hematuria or urgency with micturation. HEMATOLOGIC: Denies history of anemia or bleeding. PHYSICAL EXAMINATION Vital signs reviewed. CONSTITUTIONAL: No apparent distress. HEENT: Head is normocephalic. Pupils are equal, round. Sclerae anicteric. Mucous membranes of the mouth are moist. No JVD. No carotid bruit. CHEST EXAMINATION: Lungs are clear to auscultation. No chest wall tenderness is noted on palpation or with deep breathing. HEART EXAMINATION: Regular rate and rhythm. S1, S2 heard. No murmurs, gallops or rub. ABDOMEN: Soft, nontender. Positive bowel sounds. EXTREMITIES: 2+ peripheral pulses, no lower extremity edema and no calf tenderness. NEUROLOGIC EXAMINATION: Patient is awake, alert and oriented x3. ASSESSMENT 1. Atypical chest pain, troponin is normal 3, do not suspect acute coronary syndrome 2. Coronary artery disease with history of PCI to RCA and PCI WATER PURIFICATION CHEMIST LAD 3. Hypertension 4. Hypotensive episode with reported systolics in the 70s per patient, improved 5. Tobacco abuse 6. Hyperlipidemia PLAN Patient with chronic episodes of chest pain even after her stenting of her WATER PURIFICATION CHEMIST a year and a half ago. She has been following with primary retail supervisor for similar symptoms and states the only change was that she was somewhat hypotensive per her home blood pressure cuff and therefore was not able to take her nitroglycerin. Troponin is normal 4 and appears stable. No significant change in symptoms and unclear if chest pain is actually cardiac in nature. Patient is scheduled for outpatient event monitor and heart catheterization. Discussed options of stress testing or heart catheterization on Friday or discharge home with close outpatient follow-up and patient would prefer outpatient follow-up. If no further chest pain noted over the course of the morning patient will be cleared from a cardiology standpoint for discharge with outpatient follow-up. Past Medical History Past Medical History: Coronary Artery Disease (CAD), Myocardial Infarction (IN) Additional Past Medical History / Comment(s): Recent falls-"I feel off balance.", chronic R hip and back pain, recent R groin hematoma post PCI/stent, past arm infection (cannot recall laterality) pt states she was treated for 3 years and had picc lines-states it was not MRSA/VRE. Last Myocardial Infarction Date:: unknown History of Any Multi-Drug Resistant Organisms: None Reported Past Surgical History: Heart Catheterization With Stent, Orthopedic Surgery Additional Past Surgical History / Comment(s): 03/30/18 PCI with stents then post R groin hematoma, R hip fracture with surgery/hardware, colonoscopy, trachea damage with surgical repair 30 yrs ago, picc lines, kidney stone removal, ureteral stent which she believes has since been removed, hemorrhoidectomy. Past Anesthesia/Blood Transfusion Reactions: Postoperative Nausea & Vomiting (PONV) Date of Last Stent Placement:: 03/30/18 Past Psychological History: Depression Smoking Status: Current every day smoker Past Alcohol Use History: None Reported Past Drug Use History: Marijuana - Past Family History Mother Family Medical History: Cancer Additional Family Medical History / Comment(s): Mother is from pancreatic cancer. Father Family Medical History: Cancer Additional Family Medical History / Comment(s): Father is . Pt thinks he passed from cancer but does not know what type. Medications and Allergies Home Medications Medication Instructions Recorded Confirmed Type FLUoxetine HCL [PROzac] 40 mg PO DAILY #14 cap 11/16/17 01/25/22 Rx Aspirin [Adult Low Dose Aspirin EC] 81 mg PO DAILY 30 Days #30 03/31/18 01/25/22 Rx tablet. Clopidogrel [Plavix] 75 mg PO DAILY 30 Days #30 tablet 03/31/18 01/25/22 Rx lamoTRIgine [LaMICtal] 150 mg PO DAILY 04/13/18 01/25/22 History HYDROcodone/APAP 5-325MG [[place] 1 tab PO TID PRN 11/10/18 01/25/22 History 5-325] Atorvastatin [Lipitor] 80 mg PO DAILY 01/25/22 01/25/22 History Isosorbide Mononitrate ER [Imdur] 60 mg PO BID 01/25/22 01/25/22 History Levothyroxine Sodium [Levoxyl] 88 mcg PO DAILY 01/25/22 01/25/22 History Nicotine 21Mg/24Hr Patch [Habitrol] 1 patch TRANSDERM DAILY PRN 01/25/22 01/25/22 History Nitroglycerin Sl Tabs [Nitrostat] 0.4 mg SL Q5M PRN 01/25/22 01/25/22 History Pantoprazole [Protonix] 40 mg PO DAILY 01/25/22 01/25/22 History amLODIPine [Norvasc] 5 mg PO DAILY 01/25/22 01/25/22 History carvediloL [Coreg] 6.25 mg PO BID 01/25/22 01/25/22 History lisinopriL 40 mg PO DAILY 01/25/22 01/25/22 History valACYclovir HCL [Valtrex] 1,000 mg PO DAILY 01/25/22 01/25/22 History Allergies Allergy/AdvReac Type Severity Reaction Status Date / Time cyclobenzaprine HCl Allergy Anaphylaxis Verified 01/25/22 15:34 [From Flexeril] Iodinated Contrast Media Allergy Rash/Hives Verified 01/25/22 15:34 [Iodinated Contrast- Oral and IV Dye] iodine Allergy Rash/Hives, Verified 01/25/22 15:34 flushed,cris sea Penicillins Allergy Dyspnea Verified 01/25/22 15:34 prochlorperazine edisylate Allergy Anaphylaxis Verified 01/25/22 15:34 [From Compazine] prochlorperazine maleate Allergy Anaphylaxis Verified 01/25/22 15:34 [From Compazine] codeine AdvReac Nausea & Verified 01/25/22 15:34 Vomiting & itch Physical Exam Vitals: Vital Signs Temp Pulse Pulse Pulse Resp BP BP 01/26/22 08:20 15 01/26/22 07:00 98.3 F 61 15 110/65 01/26/22 02:15 98.3 F 61 17 100/59 01/25/22 19:03 97.6 F 54 L 17 100/57 01/25/22 16:48 98.1 F 54 L 16 113/68 01/25/22 14:11 56 L 16 105/63 01/25/22 13:17 69 01/25/22 13:13 98.0 F 72 16 114/62 Pulse Ox 01/26/22 08:20 01/26/22 07:00 99 01/26/22 02:15 99 01/25/22 19:03 98 01/25/22 16:48 99 01/25/22 14:11 99 01/25/22 13:17 01/25/22 13:13 99 Intake and Output 01/25/22 01/26/22 01/26/22 22:59 06:59 14:59 Intake Total 240 Balance 240 Intake: Oral 240 Other: Voiding Method Toilet Toilet Toilet # Voids 1 1 Weight 58.06 kg Results 01/26/22 04:47 01/26/22 04:47 Cardiac Enzymes 01/25/22 01/25/22 01/25/22 Range/Units 13:44 13:44 15:51 AST 31 (14-36) U/L Troponin I <0.012 <0.012 (0.000-0.034) ng/mL 01/25/22 01/25/22 Range/Units 19:42 21:46 AST (14-36) U/L Troponin I <0.012 <0.012 (0.000-0.034) ng/mL Coagulation 01/25/22 Range/Units 13:44 PT 10.7 (9.0-12.0) sec APTT 26.5 (22.0-30.0) sec Lipids 01/26/22 Range/Units 04:47 Triglycerides 150.00 H (0.00-149.00) mg/dL Cholesterol 113.00 (0.00-200.00) mg/dL HDL Cholesterol 42.60 (40.00-60.00) mg/dL Cholesterol/HDL Ratio 2.65 Ratio CBC 01/25/22 01/26/22 Range/Units 13:44 04:47 WBC 4.7 4.1 (3.8-10.6) k/uL RBC 3.96 3.72 L (3.80-5.40) m/uL Hgb 12.5 11.9 (11.4-16.0) gm/dL Hct 38.6 37.1 (34.0-46.0) % Plt Count 194 164 (150-450) k/uL Comprehensive Metabolic Panel 01/25/22 01/26/22 Range/Units 13:44 04:47 Sodium 138 138 (137-145) mmol/L Potassium 4.3 4.2 (3.5-5.1) mmol/L Chloride 107 111 H (98-107) mmol/L Carbon Dioxide 25 22 (22-30) mmol/L BUN 13 14 (7-17) mg/dL Creatinine 0.88 0.75 (0.52-1.04) mg/dL Glucose 108 H 113 H (74-99) mg/dL Calcium 8.4 8.5 (8.4-10.2) mg/dL AST 31 (14-36) U/L ALT 29 (4-34) U/L Alkaline Phosphatase 137 H (38-126) U/L Total Protein 6.1 L (6.3-8.2) g/dL Albumin 3.7 (3.5-5.0) g/dL Current Medications Generic Name Dose Route Start Last Admin Trade Name Freq PRN Reason Stop Dose Admin Acetaminophen 650 mg 01/25/22 15:35 Acetaminophen Tab 325 Mg Tab PO Q6HR PRN Mild Pain or Fever > 100.5 Hydrocodone Bitart/Acetaminophen 1 each 01/25/22 21:37 01/26/22 05:52 Hydrocodone/Apap 7.5-325mg 1 Each Tab PO 1 each Q6HR PRN Administration Moderate Pain Amlodipine Besylate 5 mg 01/26/22 09:00 Amlodipine 5 Mg Tab PO DAILY [facility] Aspirin 325 mg 01/26/22 09:00 01/26/22 09:01 Aspirin 325 Mg Tab PO 325 mg DAILY [facility] Administration Aspirin 81 mg 01/26/22 09:00 01/26/22 09:10 Aspirin 81 Mg PO 81 mg DAILY [facility] Administration Atorvastatin Calcium 80 mg 01/25/22 15:45 01/26/22 09:01 Atorvastatin 80 Mg Tab PO 80 mg DAILY [facility] Administration Carvedilol 6.25 mg 01/25/22 17:30 01/25/22 16:58 Carvedilol 6.25 Mg Tab PO Not Given BID-W/MEALS [facility] Clopidogrel Bisulfate 75 mg 01/26/22 09:00 01/26/22 09:02 Clopidogrel 75 Mg Tab PO 75 mg DAILY [facility] Administration Enoxaparin Sodium 40 mg 01/26/22 09:00 01/26/22 09:02 Enoxaparin 40 Mg/0.4 Ml Syringe SQ 40 mg DAILY [facility] Administration Fluoxetine HCl 40 mg 01/26/22 09:00 01/26/22 09:02 Fluoxetine Hcl 20 Mg Cap PO Not Given DAILY [facility] Isosorbide Mononitrate 60 mg 01/25/22 21:00 01/26/22 09:14 Isosorbide Mononitrate Er 60 Mg Tab.Er.24h PO 60 mg BID [facility] Administration Lamotrigine 150 mg 01/26/22 09:00 01/26/22 09:01 Lamotrigine 100 Mg Tab PO 150 mg DAILY [facility] Administration Levothyroxine Sodium 88 mcg 01/26/22 06:30 01/26/22 05:41 Levothyroxine 88 Mcg Tab PO Not Given DAILY@0630 [facility] Lisinopril 40 mg 01/26/22 09:00 01/26/22 09:02 Lisinopril 20 Mg Tab PO 40 mg DAILY [facility] Administration Naloxone HCl 0.2 mg 01/25/22 16:20 Naloxone 0.4 Mg/Ml 1 Ml Vial IVP Q2M PRN Opioid Reversal Nicotine 1 patch 01/25/22 16:10 Nicotine 21mg/24hr Patch TRANSDERM DAILY PRN cravings Nitroglycerin 0.4 mg 01/25/22 14:54 Nitroglycerin Sl Tabs 0.4 Mg Tab SUBLINGUAL Q5M PRN Chest Pain Pantoprazole Sodium 40 mg 01/26/22 07:30 01/26/22 09:02 Pantoprazole 40 Mg Tablet PO 40 mg [id number] DANA Administration Valacyclovir HCl 1,000 mg 01/26/22 09:00 Valacyclovir Hcl 1,000 Mg Tablet PO DAILY [facility] Protocol Intake and Output 01/25/22 01/26/22 01/26/22 22:59 06:59 14:59 Intake Total 240 Balance 240 Intake: Oral 240 Other: Voiding Method Toilet Toilet Toilet # Voids 1 1 Weight 58.06 kg 01/26/22 04:47 01/26/22 04:47
[2022-01-26] MEDS: carvediloL 6.25 MG TAB PO SCH (10:52)
[2022-01-26 12:42] VITALS: BP 109/57
--- NOTE | 2022-01-26 14:58 | P.DS ---
Providers Date of admission: 01/25/22 14:55 Expected date of discharge: 01/26/22 Attending physician: Jeannine Villagomez MD Consults: 01/25/22 14:55 Consult Physician Urgent Consulting Provider: [facility] Consult Reason/Comments: Chest pain Do you want consulting provider notified?: Yes Primary care physician: Yordy Westbrook DO Hospital Course: 61-year-old woman with medical history of CAD status post 5 x stents as well as chronic total occlusion of the LAD, hypertension/hyperlipidemia, active smoker, GERD with possible esophageal stricture, mood disorder, hypothyroidism presented for chest pain. In the emergency room, patient is afebrile, 114/62, heart rate is 72, 90 in percent on room air. CBC is unremarkable. Chemistries are unremarkable. LFTs are significant for mild elevation of alkaline phosphatase to 137 and mildly low total protein 6.1. Coags were unremarkable. Initial troponin was negative. No BNP. EKG demonstrated normal sinus rhythm with low amplitude voltage, no ischemic changes, normal axis, normal intervals. Chest x- ray demonstrates coarsened interstitial with recommendations to correlate for chronic interstitial lung disease or mild venous congestion versus interstitial pneumonitis. Chest pain, typical History of CAD -Admitted to observation, telemetry. Cardiology consulted. Troponins all negat alida. Pt treated with home meds of ASA, plavix, statin, imdur, coreg. Seen and cleared by cardiology. Echo was taken, but not read by the time of my evaluation. Defer to cardiology team to follow up pertinent results with the patient when she follows up with them next week. Hypertension Hyperlipidemia Active nicotine use Hypothyroidism GERD with possible esophageal stricture Mood disorder -Home medications reviewed and reconciled, no changes to home meds Gen: awake, alert HEENT: normocephalic, atraumatic, good hearing acuity, moist mucous membranes Resp: good air exchange, breathing comfortably with no accessory muscle use CVS: good distal perfusion x 4, regular rate and rhythm, late blowing systolic murmur GI: soft, NTTP, ND : no SPT, no CVAT, maddox catheter not present MSK: no pitting edema, no clubbing Neuro: non-focal, moving all extremities Psych: cooperative, euthymic mood Patient Condition at Discharge: Good Plan - Discharge Summary New Discharge Prescriptions: New Acetaminophen Tab [Tylenol] 650 mg PO Q6HR PRN tab PRN Reason: Mild Pain Or Fever > 100.5 Continue FLUoxetine HCL [PROzac] 40 mg PO DAILY #14 cap Aspirin [Adult Low Dose Aspirin EC] 81 mg PO DAILY 30 Days #30 tablet. Clopidogrel [Plavix] 75 mg PO DAILY 30 Days #30 tablet lamoTRIgine [LaMICtal] 150 mg PO DAILY HYDROcodone/APAP 5-325MG [[place] 5-325] 1 tab PO TID PRN PRN Reason: Pain amLODIPine [Norvasc] 5 mg PO DAILY Atorvastatin [Lipitor] 80 mg PO DAILY carvediloL [Coreg] 6.25 mg PO BID Isosorbide Mononitrate ER [Imdur] 60 mg PO BID lisinopriL 40 mg PO DAILY Nicotine 21Mg/24Hr Patch [Habitrol] 1 patch TRANSDERM DAILY PRN PRN Reason: cravings valACYclovir HCL [Valtrex] 1,000 mg PO DAILY Levothyroxine Sodium [Levoxyl] 88 mcg PO DAILY Nitroglycerin Sl Tabs [Nitrostat] 0.4 mg SL Q5M PRN PRN Reason: Chest Pain Pantoprazole [Protonix] 40 mg PO DAILY Discharge Medication List FLUoxetine HCL [PROzac] 40 mg PO DAILY #14 cap 11/16/17 [Rx] Aspirin [Adult Low Dose Aspirin EC] 81 mg PO DAILY 30 Days #30 tablet. 03/31/18 [Rx] Clopidogrel [Plavix] 75 mg PO DAILY 30 Days #30 tablet 03/31/18 [Rx] lamoTRIgine [LaMICtal] 150 mg PO DAILY 04/13/18 [History] HYDROcodone/APAP 5-325MG [[place] 5-325] 1 tab PO TID PRN 11/10/18 [History] Atorvastatin [Lipitor] 80 mg PO DAILY 01/25/22 [History] Isosorbide Mononitrate ER [Imdur] 60 mg PO BID 01/25/22 [History] Levothyroxine Sodium [Levoxyl] 88 mcg PO DAILY 01/25/22 [History] Nicotine 21Mg/24Hr Patch [Habitrol] 1 patch TRANSDERM DAILY PRN 01/25/22 [History] Nitroglycerin Sl Tabs [Nitrostat] 0.4 mg SL Q5M PRN 01/25/22 [History] Pantoprazole [Protonix] 40 mg PO DAILY 01/25/22 [History] amLODIPine [Norvasc] 5 mg PO DAILY 01/25/22 [History] carvediloL [Coreg] 6.25 mg PO BID 01/25/22 [History] lisinopriL 40 mg PO DAILY 01/25/22 [History] valACYclovir HCL [Valtrex] 1,000 mg PO DAILY 01/25/22 [History] Acetaminophen Tab [Tylenol] 650 mg PO Q6HR PRN tab 01/26/22 [Rx] Follow up Appointment(s)/Referral(s): Yordy Westbrook DO [Primary Care Provider] - 1-2 days Patient Instructions/Handouts: Chest Pain (DC) Activity/Diet/Wound Care/Special Instructions: PT TO FOLLOW UP WITH [facility] [place] DISCUSSED WITH DR WILLIS Discharge Disposition: HOME SELF-CARE
--- NOTE | 2022-01-28 14:01 | ECHOF ---
Referral Reason: MEASUREMENTS -------- HEIGHT: 160.0 cm WEIGHT: 58.1 kg BP: 99/60 RVIDd: 3.1 cm (< 3.3) IVSd: 1.3 cm (0.6 - 1.1) LVIDd: 4.3 cm (3.9 - 5.3) LVPWd: 1.2 cm (0.6 - 1.1) IVSs: 1.7 cm LVIDs: 2.3 cm LVPWs: 1.7 cm LAESV Index (A-L): 40.43 ml/m Ao Diam: 2.7 cm (2.0 - 3.7) AV Cusp: 2.1 cm (1.5 - 2.6) LA Diam: 3.8 cm (2.7 - 3.8) MV EXCURSION: 17.918 mm (> 18.000) MV EF SLOPE: 51 mm/s (70 - 150) EPSS: 0.3 cm MV E Tato: 1.23 m/s MV DecT: 260 ms MV A Tato: 0.45 m/s MV E/A Ratio: 2.73 RAP: 5.00 mmHg RVSP: 24.18 mmHg FINDINGS -------- Sinus rhythm. This was a technically adequate study. The left ventricular size is normal. There is mild concentric left ventricular hypertrophy. Overa ll left ventricular systolic function is normal with, an EF between 55 - 60 %. The right ventricle is normal in size. LA is moderately dilated 34-39 ml/m2 The right atrial size is normal. Interatrial and interventricular septum intact. The aortic valve is trileaflet and appears structurally normal. There is no evidence of aortic regu rgitation. There is no evidence of aortic stenosis. [id number] mitral regurgitation is present. Mild tricuspid regurgitation present. There is no evidence of pulmonary hypertension. The right v entricular systolic pressure, as measured by Doppler, is 24.18mmHg. The pulmonic valve is normal. The aortic root size is normal. IVC Not well visulized. There is a trivial pericardial effusion present. CONCLUSIONS -------- 1. The left ventricular size is normal. 2. There is mild concentric left ventricular hypertrophy. 3. Overall left ventricular systolic function is normal with, an EF between 55 - 60 %. 4. LA is moderately dilated 34-39 ml/m2 5. [id number] mitral regurgitation is present. 6. Mild tricuspid regurgitation present. 7. There is a trivial pericardial effusion present. [employer] SUPERVISOR: Marleny Kaur RDCS
== END 2022-01-26 13:12 | disposition home or self-care (01) ==
LOC: EC 13:11 → 6NMEDSUR 14:55
PROVIDERS: ADMIT Internal Medicine; ATTEND Internal Medicine
DX: R07.89 Other chest pain (principal); I10 Essential (primary) hypertension; E78.5 Hyperlipidemia, unspecified; K21.9 Gastro-esophageal reflux disease without esophagitis; E03.9 Hypothyroidism, unspecified; F17.200 Nicotine dependence, unspecified, uncomplicated; F32.A Depression, unspecified; I25.10 Atherosclerotic heart disease of native coronary artery without angina pectoris; R74.8 Abnormal levels of other serum enzymes; R01.1 Cardiac murmur, unspecified; R07.2 Precordial pain; R11.0 Nausea; I95.9 Hypotension, unspecified; R06.02 Shortness of breath; R00.1 Bradycardia, unspecified; G89.29 Other chronic pain; M54.9 Dorsalgia, unspecified; M25.551 Pain in right hip; I25.2 Old myocardial infarction; Z95.5 Presence of coronary angioplasty implant and graft; I08.1 Rheumatic disorders of both mitral and tricuspid valves; Z91.81 History of falling; R29.6 Repeated falls; Z87.442 Personal history of urinary calculi; Z79.899 Other long term (current) drug therapy; Z79.82 Long term (current) use of aspirin; Z79.02 Long term (current) use of antithrombotics/antiplatelets; Z79.890 Hormone replacement therapy; Z88.5 Allergy status to narcotic agent; Z88.0 Allergy status to penicillin; Z88.8 Allergy status to other drugs, medicaments and biological substances; Z91.041 Radiographic dye allergy status; Z91.048 Other nonmedicinal substance allergy status; Z80.0 Family history of malignant neoplasm of digestive organs; Z82.49 Family history of ischemic heart disease and other diseases of the circulatory system
CPT/HCPCS: 96372; 99285; 36415; 93005; 93306; 80061; 80053; 80048; 84443; 83735 ×2; 84484; 85025 ×2; 85610; 85730; 83036; 71046; G0378 ×2; J1650

== ENCOUNTER 2023-06-30 08:48 | Emergency (ER) | payer BC ==
[2023-06-30 09:01] VITALS: RESP 18; TEMP 98.1
[2023-06-30] MEDS ORDERED: MAG HYDROX/AL HYDROX/SIMETH 30 ML, HYOSCYAMINE ELIXIR 10 ML, LIDOCAINE 2% GLYDO JELLY 1... PO STA ×3 (09:05)
[2023-06-30] MEDS ORDERED: FAMOTIDINE 20 MG/2 ML VIAL IV STA (09:05)
--- NOTE | 2023-06-30 09:09 | ED ---
ENT HPI - General Chief complaint: ENT Stated complaint: object in throat Time Seen by Provider: 06/30/23 09:02 Source: patient, EMS, RN notes reviewed Mode of arrival: EMS Limitations: no limitations - History of Present Illness Initial comments: This is a 63-year-old female who presents to the emergency department for concerns of choking on ribs. States that she went to take a bite of ribs this morning, when she proceeded to choke on a piece of it. Feels like a piece of it became stuck in her throat. Also feels irritation in the throat and chest. She has not had anything to eat or drink since. She is still able to talk in full sentences. Denies any difficulty breathing associated with this. Denies any fevers, chills, cough, dyspnea, chest pain, palpitations, abdominal pain, nausea, vomiting, diarrhea, back pain, or headaches. MD complaint: sore throat - Related Data Home Medications Medication Instructions Recorded Confirmed lamoTRIgine [LaMICtal] 150 mg PO DAILY 04/13/18 01/25/22 HYDROcodone/APAP 5-325MG [[place] 1 tab PO TID PRN 11/10/18 01/25/22 5-325] Atorvastatin [Lipitor] 80 mg PO DAILY 01/25/22 01/25/22 Isosorbide Mononitrate ER [Imdur] 60 mg PO BID 01/25/22 01/25/22 Levothyroxine Sodium [Levoxyl] 88 mcg PO DAILY 01/25/22 01/25/22 Nicotine 21Mg/24Hr Patch [Habitrol] 1 patch TRANSDERM DAILY PRN 01/25/22 01/25/22 Nitroglycerin Sl Tabs [Nitrostat] 0.4 mg SL Q5M PRN 01/25/22 01/25/22 Pantoprazole [Protonix] 40 mg PO DAILY 01/25/22 01/25/22 amLODIPine [Norvasc] 5 mg PO DAILY 01/25/22 01/25/22 carvediloL [Coreg] 6.25 mg PO BID 01/25/22 01/25/22 lisinopriL 40 mg PO DAILY 01/25/22 01/25/22 valACYclovir HCL [Valtrex] 1,000 mg PO DAILY 01/25/22 01/25/22 Previous Rx's Medication Instructions Recorded FLUoxetine HCL [PROzac] 40 mg PO DAILY #14 cap 11/16/17 Aspirin [Adult Low Dose Aspirin EC] 81 mg PO DAILY 30 Days #30 03/31/18 tablet. Clopidogrel [Plavix] 75 mg PO DAILY 30 Days #30 tablet 03/31/18 Acetaminophen Tab [Tylenol] 650 mg PO Q6HR PRN tab 01/26/22 Allergies Allergy/AdvReac Type Severity Reaction Status Date / Time cyclobenzaprine HCl Allergy Anaphylaxis Verified 06/30/23 09:00 [From Flexeril] Iodinated Contrast Media Allergy Rash/Hives Verified 06/30/23 09:00 [Iodinated Contrast- Oral and IV Dye] iodine Allergy Rash/Hives, Verified 06/30/23 09:00 flushed,cris sea Penicillins Allergy Dyspnea Verified 06/30/23 09:00 prochlorperazine edisylate Allergy Anaphylaxis Verified 06/30/23 09:00 [From Compazine] prochlorperazine maleate Allergy Anaphylaxis Verified 06/30/23 09:00 [From Compazine] codeine AdvReac Nausea & Verified 06/30/23 09:00 Vomiting & itch Review of Systems ROS Statement: Those systems with pertinent positive or pertinent negative responses have been documented in the HPI. ROS Other: All systems not noted in ROS Statement are negative. Past Medical History Past Medical History: Coronary Artery Disease (CAD), Myocardial Infarction (PR) Additional Past Medical History / Comment(s): Recent falls-"I feel off balance.", chronic R hip and back pain, recent R groin hematoma post PCI/stent, past arm infection (cannot recall laterality) pt states she was treated for 3 years and had picc lines-states it was not MRSA/VRE. Last Myocardial Infarction Date:: unknown History of Any Multi-Drug Resistant Organisms: None Reported Past Surgical History: Heart Catheterization With Stent, Orthopedic Surgery Additional Past Surgical History / Comment(s): 03/30/18 PCI with stents then post R groin hematoma, R hip fracture with surgery/hardware, colonoscopy, trachea damage with surgical repair 30 yrs ago, picc lines, kidney stone removal, ureteral stent which she believes has since been removed, hemorrhoidectomy. Past Anesthesia/Blood Transfusion Reactions: Postoperative Nausea & Vomiting (PONV) Date of Last Stent Placement:: 5/21/18 Past Psychological History: Depression Smoking Status: Current every day smoker Past Alcohol Use History: None Reported Past Drug Use History: Marijuana - Past Family History Mother Family Medical History: Cancer Additional Family Medical History / Comment(s): Mother is from pancreatic cancer. Father Family Medical History: Cancer Additional Family Medical History / Comment(s): Father is . Pt thinks he passed from cancer but does not know what type. General Exam Limitations: no limitations General appearance: alert, in no apparent distress Head exam: Present: atraumatic, normocephalic, normal inspection ENT exam: Present: normal exam, normal oropharynx, mucous membranes moist Respiratory exam: Present: normal lung sounds bilaterally. Absent: respiratory distress, wheezes, rales, rhonchi, stridor Cardiovascular Exam: Present: regular rate, normal rhythm, normal heart sounds. Absent: systolic murmur, diastolic murmur, rubs, gallop, clicks GI/Abdominal exam: Present: soft, normal bowel sounds. Absent: distended, tenderness, guarding, rebound, rigid Neurological exam: Present: alert, oriented X3, CN II-XII intact Psychiatric exam: Present: normal affect, normal mood Skin exam: Present: warm, dry, intact, normal color. Absent: rash Course Vital Signs 06/30/23 06/30/23 08:58 10:00 Temperature 98.1 F Pulse Rate 65 80 Respiratory 18 18 Rate Blood Pressure 155/87 160/90 O2 Sat by Pulse 100 100 Oximetry Medical Decision Making - Medical Decision Making This is a 63-year-old female who presents to the emergency department for concerns of a piece of food being stuck in her throat. Was pt. sent in by a medical professional or institution? @ -No Did you speak to anyone other than the patient for history? @ -No Did you review nursing and triage notes? @ -Yes, and I agree, it is accurate with regards to the patient's symptoms. Were old charts reviewed? @ -No Differential Diagnosis? @ -Differential Foreign Body Sensation in Throat: GERD, esophageal food impaction, pharyngitis, this is not meant to be an all- inclusive list. EKG interpreted by me (3pts min.)? @ -Not obtained X-rays interpreted by me (1pt min.)? @ -Chest x-ray and x-ray of the soft tissue neck obtained. My interpretation identifies no evidence of any localized consolidations or infiltrates. CT interpreted by me (1pt min.)? @ -Not obtained U/S interpreted by me (1pt. min.)? @ -Not obtained What testing was considered but not performed? (CT, X-rays, U/S, labs)? Why? @ -None What meds were considered but not given? Why? @ -None Did you discuss the management of the patient with other professionals? @ -No Did you reconcile home meds? @ -No Was smoking cessation discussed for >3mins.? @ -No Was critical care preformed (if so, how long)? @ -No Were there social determinants of health that impacted care today? How? (Homelessness, low income, unemployed, alcoholism, drug addiction, transportation, low edu. Level, literacy, decrease access to med. care, halfway, rehab)? @ -No Was there de-escalation of care discussed even if they declined? (Discuss DNR or withdrawal of care, Hospice)? @ -No What co-morbidities impacted this encounter? (DM, HTN, Smoking, COPD, CAD, Cancer, CVA, Hep., AIDS, mental health diagnosis, sleep apnea, morbid obesity)? @ -None Was patient admitted / discharged? @ -Discharged. Chest x-ray and x-ray of the soft tissue neck obtained revealing no acute process. Patient was given a GI cocktail and Pepcid and felt significantly improved. She was tolerating solids without any difficulty and felt stable for discharge home. Advised that she likely scratched her throat while the food was on its way down, causing her symptoms. Patient discharged home in stable condition. She is advised to make sure that she thoroughly chews her food. Also discussed continuing with famotidine or Protonix. Undiagnosed new problem with uncertain prognosis? @ -None Drug Therapy requiring intensive monitoring for toxicity (Heparin, Nitro, Insulin, Cardizem)? @ -None Were any procedures done? @ -None Diagnosis/symptom? @ -Throat irritation Acute, or Chronic, or Acute on Chronic? @ -Acute Uncomplicated (without systemic symptoms) or Complicated (systemic symptoms)? @ -Uncomplicated Side effects of treatment? @ -None Exacerbation, Progression, or Severe Exacerbation] @ -Not applicable Poses a threat to life or bodily function? @ -No Return precautions reviewed in depth, the patient is instructed to return to the emergency department with any new, worsening, or concerning symptoms. Patient verbalized understanding. This case was discussed in detail with the attending ED physician, Dr. Corona. Presentation, findings, and treatment plan discussed in detail as well. - Radiology Data Radiology results: report reviewed, image reviewed Disposition Clinical Impression: Throat irritation Disposition: HOME SELF-CARE Instructions (If sedation given, give patient instructions): Pharyngitis (ED) Additional Instructions: Return to the emergency department with any new, worsening, or concerning symptoms. Follow up with your primary care provider in 1-2 days. Is patient prescribed a controlled substance at d/c from ED?: No Referrals: Yordy Westbrook DO [Primary Care Provider] - 1-2 days
--- NOTE | 2023-06-30 09:48 | XR ---
EXAMINATION TYPE: XR chest 2V DATE OF EXAM: 06/30/2023 COMPARISON: 01/25/2010 TECHNIQUE: PA and lateral views submitted. HISTORY: Pain FINDINGS: The lungs are clear and there is no pneumothorax, pleural effusion, or focal pneumonia. Heart size normal and no overt failure. Osseous structures demonstrate hypertrophic and degenerative changes of the spine. Mediport catheter and postsurgical changes noted. Coronary stent noted. Diffuse hyperexpan glynn correlation for emphysema. IMPRESSION: 1. No acute process. Correlate for COPD.
--- NOTE | 2023-06-30 09:49 | XR ---
EXAMINATION TYPE: XR soft tissue neck DATE OF EXAM: 06/30/2023 COMPARISON: NONE HISTORY: Dysphasia TECHNIQUE: 2 views submitted. FINDINGS: The calcifications soft tissue the right neck appears vascular. Airways patent. Epiglottis normal. Prevertebral soft tissue structures are normal. Osseous structures intact. No radio metallic foreign body. IMPRESSION: No acute process.
[2023-06-30] MEDS ORDERED: SODIUM CHLORIDE 0.9% 1,000 ML IV STA (09:55)
[2023-06-30] MEDS ORDERED: HYDROcodone/APAP 10-325MG 1 EACH TAB PO ONE (10:28)
[2023-06-30 10:34] VITALS: BP 160/90; PULSE 80
== END 2023-06-30 11:05 | disposition home or self-care (01) ==
LOC: EC 08:48
DX: R07.0 Pain in throat (principal); I25.10 Atherosclerotic heart disease of native coronary artery without angina pectoris; I25.2 Old myocardial infarction; F32.A Depression, unspecified; F17.200 Nicotine dependence, unspecified, uncomplicated; F12.90 Cannabis use, unspecified, uncomplicated; Z79.02 Long term (current) use of antithrombotics/antiplatelets; Z79.899 Other long term (current) drug therapy; Z88.0 Allergy status to penicillin; Z88.5 Allergy status to narcotic agent; Z88.8 Allergy status to other drugs, medicaments and biological substances
CPT/HCPCS: 70360; 71046; 99283; 96374; 96361; J3490

== ENCOUNTER 2023-11-13 15:20 | Emergency (ER) | payer BC ==
--- NOTE | 2023-11-13 15:42 | ED ---
General Adult HPI - General Source: patient, EMS, RN notes reviewed Mode of arrival: EMS Limitations: no limitations <Flakito Carrillo - Last Filed: 11/13/23 15:41> <Senait Jaquez - Last Filed: 11/13/23 19:28> - General Stated complaint: difficulty breathing Time Seen by Provider: 11/13/23 15:41 - History of Present Illness Initial comments: 63-year-old female presents emergency department via EMS chief complaint of breathing, phlegm in her throat. Patient states that she has some shortness of breath, congestion She states she has thick mucus in her throat she states it makes it difficult to swallow, breathe at times. Patient does have a productive cough. Patient is a daily smoker. Patient denies any sick contacts. (Flakito Carrillo) Patient is a 63-year-old female who is not to smoker presents emergency room accompanied of flulike symptoms. She complains of a cough and congestion over the last few days. States she had significant weakness that occasionally can be difficult to swallow. She denies any vomiting, diarrhea, chest pain or hemoptysis. She continues to smoke. (Senait Jaquez) - Related Data Home Medications Medication Instructions Recorded Confirmed lamoTRIgine [LaMICtal] 150 mg PO DAILY 04/13/18 01/25/22 HYDROcodone/APAP 5-325MG [[place] 1 tab PO TID PRN 11/10/18 01/25/22 5-325] Atorvastatin [Lipitor] 80 mg PO DAILY 01/25/22 01/25/22 Isosorbide Mononitrate ER [Imdur] 60 mg PO BID 01/25/22 01/25/22 Levothyroxine Sodium [Levoxyl] 88 mcg PO DAILY 01/25/22 01/25/22 Nicotine 21Mg/24Hr Patch [Habitrol] 1 patch TRANSDERM DAILY PRN 01/25/22 01/25/22 Nitroglycerin Sl Tabs [Nitrostat] 0.4 mg SL Q5M PRN 01/25/22 01/25/22 Pantoprazole [Protonix] 40 mg PO DAILY 01/25/22 01/25/22 amLODIPine [Norvasc] 5 mg PO DAILY 01/25/22 01/25/22 carvediloL [Coreg] 6.25 mg PO BID 01/25/22 01/25/22 lisinopriL 40 mg PO DAILY 01/25/22 01/25/22 valACYclovir HCL [Valtrex] 1,000 mg PO DAILY 01/25/22 01/25/22 Previous Rx's Medication Instructions Recorded FLUoxetine HCL [PROzac] 40 mg PO DAILY #14 cap 11/16/17 Aspirin [Adult Low Dose Aspirin EC] 81 mg PO DAILY 30 Days #30 03/31/18 tablet. Clopidogrel [Plavix] 75 mg PO DAILY 30 Days #30 tablet 03/31/18 Acetaminophen Tab [Tylenol] 650 mg PO Q6HR PRN tab 01/26/22 Benzonatate [Tessalon Perles] 100 mg PO TID PRN #20 capsule 11/13/23 Allergies Allergy/AdvReac Type Severity Reaction Status Date / Time cyclobenzaprine HCl Allergy Anaphylaxis Verified 11/13/23 16:07 [From Flexeril] Iodinated Contrast Media Allergy Rash/Hives Verified 11/13/23 16:07 [Iodinated Contrast- Oral and IV Dye] iodine Allergy Rash/Hives, Verified 11/13/23 16:07 flushed,cris sea Penicillins Allergy Dyspnea Verified 11/13/23 16:07 prochlorperazine edisylate Allergy Anaphylaxis Verified 11/13/23 16:07 [From Compazine] prochlorperazine maleate Allergy Anaphylaxis Verified 11/13/23 16:07 [From Compazine] codeine AdvReac Nausea & Verified 11/13/23 16:07 Vomiting & itch Review of Systems ROS Other: All systems not noted in ROS Statement are negative. <Flakito Carrillo - Last Filed: 11/13/23 15:41> ROS Other: All systems not noted in ROS Statement are negative. <Senait Jaquez - Last Filed: 11/13/23 19:28> ROS Statement: Those systems with pertinent positive or pertinent negative responses have been documented in the HPI. Past Medical History Past Medical History: Coronary Artery Disease (CAD), Myocardial Infarction (PR) Additional Past Medical History / Comment(s): Recent falls-"I feel off balance.", chronic R hip and back pain, recent R groin hematoma post PCI/stent, past arm infection (cannot recall laterality) pt states she was treated for 3 years and had picc lines-states it was not MRSA/VRE. Last Myocardial Infarction Date:: unknown History of Any Multi-Drug Resistant Organisms: None Reported Past Surgical History: Heart Catheterization With Stent, Orthopedic Surgery Additional Past Surgical History / Comment(s): 03/30/18 PCI with stents then post R groin hematoma, R hip fracture with surgery/hardware, colonoscopy, trachea damage with surgical repair 30 yrs ago, picc lines, kidney stone removal, ureteral stent which she believes has since been removed, hemorrhoidectomy. Past Anesthesia/Blood Transfusion Reactions: Postoperative Nausea & Vomiting (PONV) Date of Last Stent Placement:: 03/30/18 Past Psychological History: Depression Smoking Status: Current every day smoker Past Alcohol Use History: None Reported Past Drug Use History: Marijuana - Past Family History Mother Family Medical History: Cancer Additional Family Medical History / Comment(s): Mother is from pancreatic cancer. Father Family Medical History: Cancer Additional Family Medical History / Comment(s): Father is . Pt thinks he passed from cancer but does not know what type. <Flakito Carrillo - Last Filed: 11/13/23 15:41> General Exam <Flakito Carrillo - Last Filed: 11/13/23 15:41> Limitations: no limitations General appearance: alert, in no apparent distress Head exam: Present: atraumatic Eye exam: Present: normal appearance, PERRL ENT exam: Present: normal exam, normal oropharynx, mucous membranes dry Neck exam: Present: normal inspection Respiratory exam: Present: normal lung sounds bilaterally. Absent: respiratory distress, wheezes, rhonchi, stridor Cardiovascular Exam: Present: regular rate, normal rhythm Extremities exam: Present: full ROM Neurological exam: Present: alert, oriented X3, CN II-XII intact Psychiatric exam: Present: normal affect, normal mood Skin exam: Present: warm, dry <Senait Jaquez - Last Filed: 11/13/23 19:28> - General Exam Comments Initial Comments: Visual Physical Exam Vital signs reviewed General: Well-appearing, nontoxic, no acute distress. Head: Normocephalic, atraumatic Eyes: PERRLA, EOMI ENT: Airway patent Chest: Nonlabored breathing Skin: No visual rash, normal skin tone Neuro: Alert and oriented 3 Musculoskeletal: No gross abnormalities (Flakito Carrillo) Course <Senait Jaquez - Last Filed: 11/13/23 19:28> Vital Signs 11/13/23 11/13/23 16:04 18:13 Temperature 98.4 F Pulse Rate 72 76 Respiratory 16 18 Rate Blood Pressure 138/70 171/83 O2 Sat by Pulse 99 100 Oximetry - Reevaluation(s) Reevaluation #1: 11/13/23 [id number] Patient wanted to leave AMA from the waiting room. Her labs and imaging were complete. I evaluated patient and she has no wheezing on exam. She is in no respiratory distress. Her labs unremarkable including Covid flu RSV. Chest x- ray is negative for pneumonia. I recommended smoking cessation and a cough medication. She may take [id number] congestion medication as well. (Senait Jaquez) Medical Decision Making <Flakito Carrillo - Last Filed: 11/13/23 15:41> - Radiology Data Radiology results: report reviewed, image reviewed <Senait Jaquez - Last Filed: 11/13/23 19:28> - Medical Decision Making I completed the quick note portion of this chart signed Flakito Carrillo PA-C (Flakito Carrillo) Was pt. sent in by a medical professional or institution (MATTHEW Isidro, VAL[employer]ING ATTENDANT, urgent care, hospital, or fpc...) When possible be specific @ -[No] Did you speak to anyone other than the patient for history (EMS, parent, family, police, friend...)? What history was obtained from this source @ -[No] Did you review nursing and triage notes (agree or disagree)? Why? @ -[I reviewed and agree with nursing and triage notes] Were old charts reviewed (outside hosp., previous admission, EMS record, old EKG, old radiological studies, urgent care reports/EKG's, fpc records)? Report findings @ -[No old charts were reviewed] Differential Diagnosis (chest pain, altered mental status, abdominal pain women, abdominal pain men, vaginal bleeding, weakness, fever, dyspnea, syncope, headache, dizziness, GI bleed, back pain, seizure, CVA, palpatations, mental health, musculoskeletal)? @ -Covid, flu, RSV, pneumonia, URI EKG interpreted by me (3pts min.). @ -[As above] X-rays interpreted by me (1pt min.). @ -[Chest x-rays negative for any pneumonia or acute changes CT interpreted by me (1pt min.). @ -[None done] U/S interpreted by me (1pt. min.). @ -[None done] What testing was considered but not performed or refused? (CT, X-rays, U/S, labs)? Why? @ -[None] What meds were considered but not given or refused? Why? @ -[None] Did you discuss the management of the patient with other professionals (professionals i.e. , PA, [employer]ING ATTENDANT, lab, RT, psych nurse, manager social work, absorption plant operator, teacher, security flex officer, hospice case manager)? Give summary @ -[No] Was smoking cessation discussed for >3mins.? @ -[No] Was critical care preformed (if so, how long)? @ -[No] Were there social determinants of health that impacted care today? How? (Homelessness, low income, unemployed, alcoholism, drug addiction, transportation, low edu. Level, literacy, decrease access to med. care, [facility], rehab)? @ -[No] Was there de-escalation of care discussed even if they declined (Discuss DNR or withdrawal of care, Hospice)? DNR status @ -[No] What co-morbidities impacted this encounter? (DM, HTN, Smoking, COPD, CAD, Cancer, CVA, ARF, Chemo, Hep., AIDS, mental health diagnosis, sleep apnea, morbid obesity)? @ -[Smoking] Was patient admitted / discharged? Hospital course, mention meds given and route, prescriptions, significant lab abnormalities, going to OR and other pertinent info. @ -Patient is well appearing in the emergency room. No respiratory distress. Vital signs are stable. O2 sat is 100% on room air. I discussed lab and imaging results with the patient which were negative for any acute changes. Discussed management including outpatient management of the URI. Undiagnosed new problem with uncertain prognosis? @ -[No] Drug Therapy requiring intensive monitoring for toxicity (Heparin, Nitro, Insulin, Cardizem)? @ -[No] Were any procedures done? @ -[No] Diagnosis/symptom? @ -URI Acute, or Chronic, or Acute on Chronic? @ -Acute Uncomplicated (without systemic symptoms) or Complicated (systemic symptoms)? @ -[default] Side effects of treatment? @ -[No] Exacerbation, Progression, or Severe Exacerbation? @ -[No] Poses a threat to life or bodily function? How? (Chest pain, [place], PR, pneumonia, PE, COPD, DKA, ARF, appy, cholecystitis, CVA, Diverticulitis, Homicidal, Suicidal, threat to staff... and all critical care pts) @ -[No] (Senait Jaquez) - Lab Data Lab Results 11/13/23 Range/Units 16:06 Influenza Type A (PCR) Not Detected (Not Detectd) Influenza Type B (PCR) Not Detected (Not Detectd) RSV (PCR) Not Detected (Not Detectd) SARS-CoV-2 (PCR) Not Detected (Not Detectd) Disposition <Flakito Carrillo - Last Filed: 11/13/23 15:41> Is patient prescribed a controlled substance at d/c from ED?: No If prescribed controlled substance>3 days was MAPS reviewed?: No Time of Disposition: 18:18 <Senait Jaquez - Last Filed: 11/13/23 19:28> Clinical Impression: Cough, URI (upper respiratory infection), Shortness of breath Disposition: HOME SELF-CARE Condition: Fair Instructions (If sedation given, give patient instructions): Effects of Smoking, Alcohol, and Medicines on (ED), How to Stop Smoking (ED), Upper Respiratory Infection (ED), Acute Bronchitis (ED) Prescriptions: Benzonatate [Tessalon Perles] 100 mg PO TID PRN #20 capsule PRN Reason: Cough Referrals: Yordy Westbrook DO [Primary Care Provider] - 1-2 days
[2023-11-13 16:08] VITALS: TEMP 98.4
--- NOTE | 2023-11-13 16:26 | XR ---
EXAMINATION TYPE: XR chest 2V DATE OF EXAM: 11/13/2023 4:22 PM CLINICAL INDICATION:Female, 63 years old with history of sob; [facility] COMPARISON: Chest radiographs from 06/30/2023 TECHNIQUE: XR chest 2V Frontal and lateral views of the chest. FINDINGS: Lungs/Pleura: There is no evidence of pleural effusion, focal consolidation, or pneumothorax. Pulmonary vascularity: Unremarkable. Heart/mediastinum: Cardiomediastinal silhouette is unremarkable. Musculoskeletal: No acute osseous pathology. Right chest wall [id number] tip at the superior cavoatrial junction. IMPRESSION: No acute cardiopulmonary disease/process.
[2023-11-13 18:17] VITALS: BP 171/83; PULSE 76; RESP 18
== END 2023-11-13 18:24 | disposition home or self-care (01) ==
LOC: EC 15:20
DX: J06.9 Acute upper respiratory infection, unspecified (principal); I25.10 Atherosclerotic heart disease of native coronary artery without angina pectoris; I25.2 Old myocardial infarction; F32.A Depression, unspecified; F17.200 Nicotine dependence, unspecified, uncomplicated; F12.90 Cannabis use, unspecified, uncomplicated; Z20.822 Contact with and (suspected) exposure to COVID-19; Z79.899 Other long term (current) drug therapy; Z88.0 Allergy status to penicillin; Z91.041 Radiographic dye allergy status; Z88.5 Allergy status to narcotic agent; Z88.8 Allergy status to other drugs, medicaments and biological substances
CPT/HCPCS: 71046; 87636; 99285

== ENCOUNTER 2024-11-20 21:37 | Inpatient (IN) | payer BC, MEDICARE ==
[2024-11-20 22:39] LABS: INR 1.2 (<1.2); Partial Thromboplastin Time 37.2 sec (22.0-30.0); Prothrombin Time 12.5 sec (10.0-12.5)
[2024-11-20 22:48] LABS: Anisocytosis Slight; Basophils % (A) 1 %; Eosinophils % (A) 0 %; HGB 9.8 gm/dL (11.4-16.0); Hypochromasia Marked; Lymphocytes # (A) 0.5 k/uL (1.0-4.8); Lymphocytes % (A) 18 %; MCHC 30.7 g/dL (31.0-37.0); MCV 97.9 fL (80.0-100.0); Macrocytosis Slight; Mean Platelet Volume 10.9; Monocytes # (A) 0.2 k/uL (0-1.0); Monocytes % (A) 6 %; Neutrophils # (A) 2.2 k/uL (1.3-7.7); Neutrophils % (A) 74 %; RBC 3.27 m/uL (3.80-5.40); RDW 17.5 % (11.5-15.5)
[2024-11-20 22:50] LABS: Platelet Count 54 k/uL (150-450)
--- NOTE | 2024-11-20 22:52 | ED ---
General Adult HPI - General Chief complaint: Abdominal Pain Stated complaint: Abdominal Pain Time Seen by Provider: 11/20/24 21:39 Source: patient, EMS Mode of arrival: EMS Limitations: no limitations - History of Present Illness Initial comments: This patient is a 64-year-old woman who has metastatic lung cancer as well as liver cancer. The patient here to have evaluation treatment for abdomen and chest pain as well as nausea and vomiting. Patient did reportedly have some form of treatment on November 17. The patient also arrives with instructions that she is DNR status and patient did confirm this verbally. Patient indicates pain to the epigastric and bilateral upper abdominal areas. She had been given medication just prior to arrival otherwise is somnolent. She does arouse to voice. Onset/Timin -: days(s) Location: chest, abdomen Radiation: non-radiation Consistency: constant Improves with: medication Worsens with: none Associated Symptoms: nausea/vomiting Treatments Prior to Arrival: none - Related Data Home Medications Medication Instructions Recorded Confirmed lamoTRIgine [LaMICtal] 150 mg PO DAILY 04/13/18 11/21/24 Nicotine 21Mg/24Hr Patch [Habitrol] 1 patch TRANSDERM DAILY PRN 01/25/22 11/21/24 Nitroglycerin Sl Tabs [Nitrostat] 0.4 mg SL Q5M PRN 01/25/22 11/21/24 Pantoprazole [Protonix] 40 mg PO BID 01/25/22 11/21/24 amLODIPine [Norvasc] 5 mg PO DAILY 01/25/22 11/21/24 ALPRAZolam [Xanax] 0.25 mg PO BID PRN 11/21/24 11/21/24 Acyclovir 5% Oint [Zovirax Oint] 1 applic TOPICAL DAILY PRN 11/21/24 11/21/24 Albuterol Inhaler [Ventolin Hfa 2 puff INHALATION RT-QID PRN 11/21/24 11/21/24 Inhaler] Fluticasone Propion/Salmeterol 1 puff INHALATION RT-BID 11/21/24 11/21/24 [Wixela 250-50 Inhub] HYDROcodone/APAP 10-325MG [[place]ver 2 tab PO Q4HR 11/21/24 11/21/24 10-325] Hyoscyamine Sulfate [Levsin] 0.125 mg PO Q4H PRN 11/21/24 11/21/24 Isosorbide Mononitrate ER [Imdur] 90 mg PO BID 11/21/24 11/21/24 Lidocaine Viscous 2% [Xylocaine 5 ml PO QID PRN 11/21/24 11/21/24 Viscous] Lidocaine-Prilocaine Cream [Emla 1 applic TOPICAL DAILY PRN 11/21/24 11/21/24 Cream 2.5%/2.5%] Lubiprostone 8 mcg PO BID@0730,2100 11/21/24 11/21/24 Metoprolol Succinate [Metoprolol 25 mg PO DAILY 11/21/24 11/21/24 Succinate ER] Ondansetron Odt [Zofran ODT] 4 mg PO TID PRN 11/21/24 11/21/24 diazePAM [Valium] 2 mg PO HS PRN 11/21/24 11/21/24 fentaNYL 100MCG/HR PATCH 1 patch TRANSDERM Q72H 11/21/24 11/21/24 [Duragesic 100MCG/HR] fentaNYL 25MCG/HR PATCH [Duragesic 1 patch TRANSDERM Q72H 11/21/24 11/21/24 25MCG/HR] lisinopriL [Zestril] 20 mg PO BID 11/21/24 11/21/24 Previous Rx's Medication Instructions Recorded Acetaminophen Tab [Tylenol] 325 mg PO Q6HR PRN tab 11/23/24 Lactulose [Cephulac] 30 gm PO BID ml 11/23/24 Levothyroxine Sodium 50 mcg PO DAILY 30 Days #60 tab 11/23/24 Oseltamivir [Tamiflu] 75 mg PO Q12HR 5 Days #10 cap 11/23/24 polyethylene glycoL 3350 [Miralax] 17 gm PO DAILY #30 packet 11/23/24 Allergies Allergy/AdvReac Type Severity Reaction Status Date / Time cyclobenzaprine HCl Allergy Anaphylaxis Verified 11/21/24 11:20 [From Flexeril] Iodinated Contrast Media Allergy Rash/Hives Verified 11/21/24 11:20 [Iodinated Contrast- Oral and IV Dye] iodine Allergy Rash/Hives, Verified 11/21/24 11:20 flushed,cris sea Penicillins Allergy Dyspnea Verified 11/21/24 11:20 prochlorperazine edisylate Allergy Anaphylaxis Verified 11/21/24 11:20 [From Compazine] prochlorperazine maleate Allergy Anaphylaxis Verified 11/21/24 11:20 [From Compazine] codeine AdvReac Nausea & Verified 11/21/24 11:20 Vomiting & itch Review of Systems ROS Statement: Those systems with pertinent positive or pertinent negative responses have been documented in the HPI. ROS Other: All systems not noted in ROS Statement are negative. Constitutional: Denies: fever Respiratory: Denies: cough, dyspnea Cardiovascular: Reports: chest pain. Denies: syncope Gastrointestinal: Reports: abdominal pain, nausea, vomiting. Denies: melena, hematochezia Genitourinary: Denies: hematuria Musculoskeletal: Denies: back pain Neurological: Denies: headache Past Medical History Past Medical History: Coronary Artery Disease (CAD), Myocardial Infarction ([place]) Additional Past Medical History / Comment(s): Recent falls-"I feel off balance.", chronic R hip and back pain, recent R groin hematoma post PCI/stent, past arm infection (cannot recall laterality) pt states she was treated for 3 years and had picc lines-states it was not MRSA/VRE. Last Myocardial Infarction Date:: unknown History of Any Multi-Drug Resistant Organisms: None Reported Past Surgical History: Heart Catheterization With Stent, Orthopedic Surgery Additional Past Surgical History / Comment(s): 03/30/18 PCI with stents then post R groin hematoma, R hip fracture with surgery/hardware, colonoscopy, trachea damage with surgical repair 30 yrs ago, picc lines, kidney stone removal, ureteral stent which she believes has since been removed, hemorrhoidectomy. Past Anesthesia/Blood Transfusion Reactions: Postoperative Nausea & Vomiting (PONV) Date of Last Stent Placement:: 03/30/18 Past Psychological History: Depression Smoking Status: Current every day smoker Past Alcohol Use History: None Reported Past Drug Use History: Marijuana - Past Family History Mother Family Medical History: Cancer Additional Family Medical History / Comment(s): Mother is from pancrea tic cancer. Father Family Medical History: Cancer Additional Family Medical History / Comment(s): Father is . Pt thinks he passed from cancer but does not know what type. General Exam Limitations: no limitations General appearance: alert, in no apparent distress Head exam: Present: atraumatic, normocephalic Eye exam: Present: normal appearance. Absent: scleral icterus, conjunctival injection ENT exam: Present: mucous membranes dry Neck exam: Present: normal inspection Respiratory exam: Present: normal lung sounds bilaterally, rhonchi. Absent: respiratory distress, wheezes, rales, stridor, accessory muscle use Cardiovascular Exam: Present: regular rate, normal rhythm, normal heart sounds. Absent: systolic murmur, diastolic murmur, rubs, gallop GI/Abdominal exam: Present: soft. Absent: distended, tenderness, guarding, rebound, rigid Extremities exam: Present: normal inspection, normal capillary refill Back exam: Present: normal inspection Skin exam: Present: warm, dry, intact, normal color. Absent: rash Course Vital Signs 11/20/24 11/20/24 11/21/24 21:38 22:42 00:13 Temperature 98.8 F Pulse Rate 89 73 88 Respiratory 20 18 20 Rate Blood Pressure 160/82 148/80 168/96 O2 Sat by Pulse 91 L 91 L 93 L Oximetry EKG Findings - EKG Comments: EKG Findings:: Old septal infarct based on Q waves V1 V2. - EKG Results: EKG: interpreted by TANYA, sinus rhythm (Rate 81 bpm), normal axis, normal ST/T Medical Decision Making - Medical Decision Making Given that patient is poor historian, I did attempt to reach family members listed in the contact area, Riky Burnett at area code [phone] and at the other number listed area code [phone], but there was no answer at either number. The patient had chest x-ray that I interpreted as negative for acute infiltrate, pneumothorax, congestive heart failure The patient had CT of the abdomen pelvis that I interpreted as negative for free air or obstruction. No acute surgical condition Was pt. sent in by a medical professional or institution (, PA, PHOTOENGRAVING ETCHER, urgent care, hospital, or [facility]...) When possible be specific @ -[No] Did you speak to anyone other than the patient for history (EMS, parent, family, police, friend...)? What history was obtained from this source @ -[No] Did you review nursing and triage notes (agree or disagree)? Why? @ -[I reviewed and agree with nursing and triage notes] Were old charts reviewed (outside hosp., previous admission, EMS record, old EKG, old radiological studies, urgent care reports/EKG's, [facility] records)? Report findings @ -[No old charts were reviewed] Differential Diagnosis (chest pain, altered mental status, abdominal pain women, abdominal pain men, vaginal bleeding, weakness, fever, dyspnea, syncope, headache, dizziness, GI bleed, back pain, seizure, CVA, palpatations, mental health, musculoskeletal)? @ -[Differential Abdominal Pain Women: Appendicitis, Cholecystitis, diverticulosis, ischemic bowel, pancreatitis, hepatitis, UTI, gastroenteritis, AAA, incarcerated hernia, bowel obstruction, constipation, inflammatory bowel, hepatitis, peptic ulcer disease, splenic infarction, perforated viscus, vulvitis, ovarian torsion, PID, kidney stone, placenta abruption, this is not meant to be an all-inclusive list Differential Altered Mental Status: Hypoglycemia, DKA, hypercapnia, ETOH, overdose, CO poisoning, trauma, myxedema coma, HTN encephalopathy, infection, encephalitis, psychosis, intercranial hemorrhage, hepatic encephalopathy, meningitis, CVA, this is not meant to be an all-inclusive list EKG interpreted by me (3pts min.). @ -[As above] X-rays interpreted by me (1pt min.). @ -[I interpreted as above CT interpreted by me (1pt min.). @ -[I interpreted as above U/S interpreted by me (1pt. min.). @ -[None done] What testing was considered but not performed or refused? (CT, X-rays, U/S, labs)? Why? @ -[None] What meds were considered but not given or refused? Why? @ -[None] Did you discuss the management of the patient with other professionals (professionals i.e. , PA, PHOTOENGRAVING ETCHER, lab, RT, psych nurse, social media director, certified ophthalmic assistant, teacher, chief supply chain officer, child welfare caseworker)? Give summary @ -[Case discussed with admitting physician and treatment recommendations incorporated Was smoking cessation discussed for >3mins.? @ -[No] Was critical care preformed (if so, how long)? @ -[No] Were there social determinants of health that impacted care today? How? (Homelessness, low income, unemployed, alcoholism, drug addiction, transport ation, low edu. Level, literacy, decrease access to med. care, halfway, rehab)? @ -[No] Was there de-escalation of care discussed even if they declined (Discuss DNR or withdrawal of care, Hospice)? DNR status @ -[No] What co-morbidities impacted this encounter? (DM, HTN, Smoking, COPD, CAD, Cancer, CVA, ARF, Chemo, Hep., AIDS, mental health diagnosis, sleep apnea, morbid obesity)? @ -[Metastatic cancer Was patient admitted / discharged? Hospital course, mention meds given and route, prescriptions, significant lab abnormalities, going to OR and other pertinent info. @ -[Patient is 64-year-old woman with metastatic cancer here with vomiting and altered mental status patient is admitted for further evaluation and treatment Undiagnosed new problem with uncertain prognosis? @ -[No] Drug Therapy requiring intensive monitoring for toxicity (Heparin, Nitro, Insulin, Cardizem)? @ -[No] Were any procedures done? @ -[No] Diagnosis/symptom? @ -[Acute delirium Influenza A Nausea and vomiting abdominal pain Acute, or Chronic, or Acute on Chronic? @ -[Acute Uncomplicated (without systemic symptoms) or Complicated (systemic symptoms)? @ -[Complicated by delirium Side effects of treatment? @ -[No] Exacerbation, Progression, or Severe Exacerbation? @ -[No] Poses a threat to life or bodily function? How? (Chest pain, [place], [place], pneumonia, PE, COPD, DKA, ARF, appy, cholecystitis, CVA, Diverticulitis, Homicidal, Suicidal, threat to staff... and all critical care pts) @ -[Yes All treatments are based on ideal body weight as in ED triage - Lab Data Result diagrams: 11/23/24 06:07 11/23/24 06:07 Lab Results 11/20/24 11/20/24 11/20/24 Range/Units 21:43 21:43 21:43 WBC 3.0 L (3.8-10.6) k/uL RBC 3.27 L (3.80-5.40) m/uL Hgb 9.8 L (11.4-16.0) gm/dL Hct 32.0 L (34.0-46.0) % MCV 97.9 (80.0-100.0) fL MCH 30.0 (25.0-35.0) pg MCHC 30.7 L (31.0-37.0) g/dL RDW 17.5 H (11.5-15.5) % Plt Count 54 L (150-450) k/uL MPV 10.9 Neutrophils % 74 % Lymphocytes % 18 % Monocytes % 6 % Eosinophils % 0 % Basophils % 1 % Neutrophils # 2.2 (1.3-7.7) k/uL Lymphocytes # 0.5 L (1.0-4.8) k/uL Monocytes # 0.2 (0-1.0) k/uL Eosinophils # 0.0 (0-0.7) k/uL Basophils # 0.0 (0-0.2) k/uL Hypochromasia Marked Anisocytosis Slight Macrocytosis Slight PT 12.5 (10.0-12.5) sec INR 1.2 H (<1.2) APTT 37.2 H (22.0-30.0) sec Sodium 138 (137-145) mmol/L Potassium 4.9 (3.5-5.1) mmol/L Chloride 103 (98-107) mmol/L Carbon Dioxide 27 (22-30) mmol/L Anion Gap 8 mmol/L BUN 19 H (7-17) mg/dL Creatinine 0.72 (0.52-1.04) mg/dL Est GFR (CKD-EPI)AfAm >90 (>60 ml/min/1.73 sqM) Est GFR (CKD-EPI)NonAf >90 (>60 ml/min/1.73 sqM) Glucose 108 H (74-99) mg/dL Plasma Lactic Acid Amador (0.7-2.0) mmol/L Calcium 9.5 (8.4-10.2) mg/dL Total Bilirubin 2.2 H (0.2-1.3) mg/dL AST 85 H (14-36) U/L ALT 21 (4-34) U/L Alkaline Phosphatase 343 H (38-126) U/L Ammonia (<30) umol/L Troponin I (0.000-0.034) ng/mL NT-Pro-B Natriuret Pep pg/mL Total Protein 6.5 (6.3-8.2) g/dL Albumin 4.1 (3.5-5.0) g/dL Amylase 64 (30-110) U/L Lipase 213 (23-300) U/L Influenza Type A (PCR) (Not Detectd) Influenza Type B (PCR) (Not Detectd) RSV (PCR) (Not Detectd) SARS-CoV-2 (PCR) (Not Detectd) 11/20/24 11/20/24 11/20/24 Range/Units 21:43 21:43 21:43 WBC (3.8-10.6) k/uL RBC (3.80-5.40) m/uL Hgb (11.4-16.0) gm/dL Hct (34.0-46.0) % MCV (80.0-100.0) fL MCH (25.0-35.0) pg MCHC (31.0-37.0) g/dL RDW (11.5-15.5) % Plt Count (150-450) k/uL MPV Neutrophils % % Lymphocytes % % Monocytes % % Eosinophils % % Basophils % % Neutrophils # (1.3-7.7) k/uL Lymphocytes # (1.0-4.8) k/uL Monocytes # (0-1.0) k/uL Eosinophils # (0-0.7) k/uL Basophils # (0-0.2) k/uL Hypochromasia Anisocytosis Macrocytosis PT (10.0-12.5) sec INR (<1.2) APTT (22.0-30.0) sec Sodium (137-145) mmol/L Potassium (3.5-5.1) mmol/L Chloride (98-107) mmol/L Carbon Dioxide (22-30) mmol/L Anion Gap mmol/L BUN (7-17) mg/dL Creatinine (0.52-1.04) mg/dL Est GFR (CKD-EPI)AfAm (>60 ml/min/1.73 sqM) Est GFR (CKD-EPI)NonAf (>60 ml/min/1.73 sqM) Glucose (74-99) mg/dL Plasma Lactic Acid Amador 1.7 (0.7-2.0) mmol/L Calcium (8.4-10.2) mg/dL Total Bilirubin (0.2-1.3) mg/dL AST (14-36) U/L ALT (4-34) U/L Alkaline Phosphatase (38-126) U/L Ammonia (<30) umol/L Troponin I <0.012 (0.000-0.034) ng/mL NT-Pro-B Natriuret Pep pg/mL Total Protein (6.3-8.2) g/dL Albumin (3.5-5.0) g/dL Amylase (30-110) U/L Lipase (23-300) U/L Influenza Type A (PCR) Detected A (Not Detectd) Influenza Type B (PCR) Not Detected (Not Detectd) RSV (PCR) Not Detected (Not Detectd) SARS-CoV-2 (PCR) Not Detected (Not Detectd) 11/20/24 11/20/24 Range/Units 21:43 22:57 WBC (3.8-10.6) k/uL RBC (3.80-5.40) m/uL Hgb (11.4-16.0) gm/dL Hct (34.0-46.0) % MCV (80.0-100.0) fL MCH (25.0-35.0) pg MCHC (31.0-37.0) g/dL RDW (11.5-15.5) % Plt Count (150-450) k/uL MPV Neutrophils % % Lymphocytes % % Monocytes % % Eosinophils % % Basophils % % Neutrophils # (1.3-7.7) k/uL Lymphocytes # (1.0-4.8) k/uL Monocytes # (0-1.0) k/uL Eosinophils # (0-0.7) k/uL Basophils # (0-0.2) k/uL Hypochromasia Anisocytosis Macrocytosis PT (10.0-12.5) sec INR (<1.2) APTT (22.0-30.0) sec Sodium (137-145) mmol/L Potassium (3.5-5.1) mmol/L Chloride (98-107) mmol/L Carbon Dioxide (22-30) mmol/L Anion Gap mmol/L BUN (7-17) mg/dL Creatinine (0.52-1.04) mg/dL Est GFR (CKD-EPI)AfAm (>60 ml/min/1.73 sqM) Est GFR (CKD-EPI)NonAf (>60 ml/min/1.73 sqM) Glucose (74-99) mg/dL Plasma Lactic Acid Amador (0.7-2.0) mmol/L Calcium (8.4-10.2) mg/dL Total Bilirubin (0.2-1.3) mg/dL AST (14-36) U/L ALT (4-34) U/L Alkaline Phosphatase (38-126) U/L Ammonia 20 (<30) umol/L Troponin I (0.000-0.034) ng/mL NT-Pro-B Natriuret Pep 713 pg/mL Total Protein (6.3-8.2) g/dL Albumin (3.5-5.0) g/dL Amylase (30-110) U/L Lipase (23-300) U/L Influenza Type A (PCR) (Not Detectd) Influenza Type B (PCR) (Not Detectd) RSV (PCR) (Not Detectd) SARS-CoV-2 (PCR) (Not Detectd) Disposition Clinical Impression: Influenza A, Acute delirium, Vomiting, Abdominal pain Disposition: ADMITTED IP TO THIS HOSP Condition: Poor
[2024-11-20 22:54] LABS: ALT 21 U/L (4-34); African American GFR (CKD) >90 (>60 ml/min/1.73 sqM); Albumin 4.1 g/dL (3.5-5.0); Amylase 64 U/L (30-110); Anion Gap 8 mmol/L; Blood Urea Nitrogen 19 mg/dL (7-17); Calcium 9.5 mg/dL (8.4-10.2); Carbon Dioxide 27 mmol/L (22-30); Chloride 103 mmol/L (98-107); Glucose 108 mg/dL (74-99); Lipase 213 U/L (23-300); Non-African American GFR(CKD) >90 (>60 ml/min/1.73 sqM); Sodium 138 mmol/L (137-145)
[2024-11-20 22:55] LABS: Potassium 4.9 mmol/L (3.5-5.1); Total Protein 6.5 g/dL (6.3-8.2)
[2024-11-20 22:56] LABS: AST 85 U/L (14-36); Alkaline Phosphatase 343 U/L (38-126); Total Bilirubin 2.2 mg/dL (0.2-1.3)
[2024-11-21] MEDS: SODIUM CHLORIDE 0.9% 1,100 ML IV ONE
[2024-11-21] MEDS: HYDROmorphone 0.5 MG/0.5 ML SYRINGE IVP STA (00:03)
[2024-11-21] MEDS: ONDANSETRON 4 MG/2 ML VIAL IVP STA (00:04)
[2024-11-21] MEDS ORDERED: NALOXONE 0.4 MG/ML 1 ML VIAL IV PRN (00:05)
[2024-11-21] MEDS: SODIUM CHLORIDE 0.9% 1,000 ML IV STA (00:05)
[2024-11-21 00:11] LABS: Influenza A Detected (Not Detectd); Influenza B Not Detected (Not Detectd); RSV Not Detected (Not Detectd)
[2024-11-21] MEDS: SODIUM CHLORIDE 0.9% 1,000 ML IV SCH (00:15)
[2024-11-21] MEDS: HYDROmorphone 0.5 MG/0.5 ML SYRINGE IVP PRN (03:58)
[2024-11-21 04:45] LABS: Amorphous Sediment,Urine Rare /hpf; Appearance,Urine Clear (Clear); Bacteria,Urine Moderate /hpf; Bilirubin,Urine Negative (Negative); Blood,Urine Trace (Negative); Color,Urine Light Yellow; Glucose,Urine (UA) Negative (Negative); Hyaline Casts,Urine 1 /lpf (0-2); Ketones,Urine Negative (Negative); Leukocyte Esterase,Urine Negative (Negative); Nitrite,Urine Negative (Negative); Protein,Urine Trace (Negative); RBC,Urine 1 /hpf (0-5); Specific Gravity,Urine 1.012 (1.001-1.035); Squamous Epithelial Cell,Urine <1 /hpf (0-4); WBC,Urine 6 /hpf (0-5)
[2024-11-21] MEDS: ONDANSETRON 4 MG/2 ML VIAL IVP PRN (05:57)
[2024-11-21] MEDS: HEPARIN SODIUM,PORCINE 5,000 UNIT/ML 1 ML VIAL SQ SCH (07:58)
--- NOTE | 2024-11-21 08:14 | CT ---
EXAMINATION TYPE: CT abdomen pelvis wo con DATE OF EXAM: 11/21/2024 1:39 AM COMPARISON: 03/31/2018 CLINICAL INDICATION: Female, 64 years old with history of abdominal pain, TECHNIQUE: Axial images were obtained from above the diaphragm to the pubic rami in the axial plane a t 5 mm thick sections. Reconstructed images are reviewed on the computer in the coronal plane. CONTRAST: 0 mL of Isovue 300. Study performed without Oral Contrast DLP: 458.2 mGycm, Automated exposure control for dose reduction was used. FINDINGS: Limited CT sections are obtained the lung bases. The lung bases are clear. There is a small hiatal hernia present. CT ABDOMEN: Liver: Normal Spleen: Enlarged measuring 15.7 cm in craniocaudal dimension. Normal less than 12.5 cm. Pancreas: Normal Adrenal glands: The adrenal glands are normal. Gallbladder: Normal. This may be distended Kidneys: No masses are evident. No hydronephrosis is present. No cysts are present. There is a pun ctate nonobstructing calcification in the mid right kidney. Series 201 image 62 punctate nonobstructi ng renal stones in the mid left kidney. Series 201 image 57 Aorta: Vascular calcification is within the aorta. Inferior vena cava: Normal. CT PELVIS: Loops of bowel within the abdomen and pelvis are normal. The study is without oral contrast limit ing bowel evaluation. Appendix: Not identified. No dilated tubular structure or inflammatory change evident. Urinary bladder: Normal. Genitourinary structures: Uterus and ovaries are not identified Osseous structures: No suspicious lytic or sclerotic lesions. There is a right hip pin. IMPRESSION: 1. Punctate nonobstructing bilateral renal stones. [facility], , 11/21/2024 8:12 AM
--- NOTE | 2024-11-21 08:30 | XR ---
EXAMINATION TYPE: XR chest 1V portable DATE OF EXAM: 11/20/2024 10:15 PM COMPARISON: None. CLINICAL INDICATION: Female, 64 years old with history of chest pain, stage IV liver and lung cancer, chemotherapy 11/17/2024 TECHNIQUE: XR chest 1V portable view(s) obtained. FINDINGS: The heart size is mildly prominent. The pulmonary vasculature is upper limits of normal. Surgical clips at the right hilum. There is a port on the right with the tip in the right atrium IMPRESSION: 1. Mild cardiomegaly. 2. No acute pulmonary process radiographically apparent [facility], , 11/21/2024 8:27 AM
[2024-11-21] MEDS: PANTOPRAZOLE 40 MG/10 ML VIAL IV SCH ×2 (08:48→19:59)
[2024-11-21] MEDS ORDERED: hydrALAZINE HCL 20 MG/ML 1 ML VIAL IVP PRN (12:10)
--- NOTE | 2024-11-21 12:18 | P.HPIM ---
History of Present Illness This is a pleasant 64 years old female with past medical history of multiple medical problems as below. Including history of stage IV liver and lung cancer. GERD with possible esophageal stricture CAD status post 5 x stents as well as chronic total occlusion of the LAD, hypertension/hyperlipidemia, active smoker, Patient presents because of tractable nausea vomiting there was a blood and also with abdominal pain per records. When I saw the patient she was very drowsy, she woke up to verbal stimuli she told me she is in the hospital but she was disoriented to time. She could name the president is Tal and then go back to sleep. She is very poor historian. No further information could she provide As per notes she got last chemotherapy on 11/17/2024 Patient is afebrile and hemodynamically stable Labs showing pancytopenia with WBC 3, hemoglobin 9.8 and platelet count 54 Liver enzymes mildly elevated and bilirubin mildly elevated. BMP is unremarkable, urinalysis is unremarkable. INR is within the reference range and troponin is negative. Influenza A is positive, where COVID is negative Chest x-ray is negative for acute process CT of the abdomen pelvis without contrast showing nonobstructive punctate bilateral renal stones Patient started on normal saline and admitted to the hospital Review of Systems Review of systems CONSTITUTIONAL: No fever, no malaise, no fatigue. HEENT: No recent visual problems or hearing problems. Denied any sore throat. CARDIOVASCULAR: No orthopnea, PND, no palpitations, no syncope. PULMONARY: No shortness of breath, no cough, no hemoptysis. GASTROINTESTINAL: as above NEUROLOGICAL: No headaches, no weakness, no numbness. HEMATOLOGICAL: Denies any bleeding or petechiae. GENITOURINARY: Denies any burning micturition, frequency, or urgency. MUSCULOSKELETAL/RHEUMATOLOGICAL: Denies any joint pain, swelling, or any muscle pain. ENDOCRINE: Denies any polyuria or polydipsia. ROS unobtainable: due to mental status Past Medical History Past Medical History: Coronary Artery Disease (CAD), Cancer, Myocardial Infarction ([place]) Additional Past Medical History / Comment(s): Recent falls-"I feel off balance.", chronic R hip and back pain, recent R groin hematoma post PCI/stent, past arm infection (cannot recall laterality) pt states she was treated for 3 years and had picc lines-states it was not MRSA/VRE, current lung and liver cancer stage 4 last chemo on 11/17/24. Last Myocardial Infarction Date:: unknown History of Any Multi-Drug Resistant Organisms: None Reported Past Surgical History: Heart Catheterization With Stent, Orthopedic Surgery Additional Past Surgical History / Comment(s): 03/30/18 PCI with stents then post R groin hematoma, R hip fracture with surgery/hardware, colonoscopy, trachea damage with surgical repair 30 yrs ago, picc lines, kidney stone removal, ureteral stent which she believes has since been removed, hemorrhoidectomy., Past Anesthesia/Blood Transfusion Reactions: Postoperative Nausea & Vomiting (PONV) Date of Last Stent Placement:: 03/30/18 Smoking Status: Current every day smoker - Past Family History Mother Family Medical History: Cancer Additional Family Medical History / Comment(s): Mother is from pancreatic cancer. Father Family Medical History: Cancer Additional Family Medical History / Comment(s): Father is . Pt thinks he passed from cancer but does not know what type. Medications and Allergies Home Medications Medication Instructions Recorded Confirmed Type Clopidogrel [Plavix] 75 mg PO DAILY 30 Days #30 tablet 03/31/18 11/21/24 Rx lamoTRIgine [LaMICtal] 150 mg PO DAILY 04/13/18 11/21/24 History Nicotine 21Mg/24Hr Patch [Habitrol] 1 patch TRANSDERM DAILY PRN 01/25/22 11/21/24 History Nitroglycerin Sl Tabs [Nitrostat] 0.4 mg SL Q5M PRN 01/25/22 11/21/24 History Pantoprazole [Protonix] 40 mg PO BID 01/25/22 11/21/24 History amLODIPine [Norvasc] 5 mg PO DAILY 01/25/22 11/21/24 History ALPRAZolam [Xanax] 0.25 mg PO BID PRN 11/21/24 11/21/24 History Acyclovir 5% Oint [Zovirax Oint] 1 applic TOPICAL DAILY PRN 11/21/24 11/21/24 History Albuterol Inhaler [Ventolin Hfa 2 puff INHALATION RT-QID PRN 11/21/24 11/21/24 History Inhaler] Apixaban [Eliquis] 2.5 mg PO BID 11/21/24 11/21/24 History Fluticasone Propion/Salmeterol 1 puff INHALATION RT-BID 11/21/24 11/21/24 History [Wixela 250-50 Inhub] HYDROcodone/APAP 10-325MG [[place] 2 tab PO Q4HR 11/21/24 11/21/24 History 10-325] Hyoscyamine Sulfate [Levsin] 0.125 mg PO Q4H PRN 11/21/24 11/21/24 History Isosorbide Mononitrate ER [Imdur] 90 mg PO BID 11/21/24 11/21/24 History Lactulose 10 gm PO BID PRN 11/21/24 11/21/24 History Levothyroxine Sodium [Levoxyl] 75 mcg PO DAILY 11/21/24 11/21/24 History Lidocaine Viscous 2% [Xylocaine 5 ml PO QID PRN 11/21/24 11/21/24 History Viscous] Lidocaine-Prilocaine Cream [Emla 1 applic TOPICAL DAILY PRN 11/21/24 11/21/24 History Cream 2.5%/2.5%] Lubiprostone 8 mcg PO BID@0730,2100 11/21/24 11/21/24 History Metoprolol Succinate [Metoprolol 25 mg PO DAILY 11/21/24 11/21/24 History Succinate ER] Ondansetron Odt [Zofran Odt] 4 mg PO TID PRN 11/21/24 11/21/24 History diazePAM [Valium] 2 mg PO HS PRN 11/21/24 11/21/24 History fentaNYL 100MCG/HR PATCH 1 patch TRANSDERM Q72H 11/21/24 11/21/24 History [Duragesic 100MCG/HR] fentaNYL 25MCG/HR PATCH [Duragesic 1 patch TRANSDERM Q72H 11/21/24 11/21/24 History 25MCG/HR] lisinopriL [Zestril] 20 mg PO BID 11/21/24 11/21/24 History Allergies Allergy/AdvReac Type Severity Reaction Status Date / Time cyclobenzaprine HCl Allergy Anaphylaxis Verified 11/21/24 11:20 [From Flexeril] Iodinated Contrast Media Allergy Rash/Hives Verified 11/21/24 11:20 [Iodinated Contrast- Oral and IV Dye] iodine Allergy Rash/Hives, Verified 11/21/24 11:20 flushed,cris sea Penicillins Allergy Dyspnea Verified 11/21/24 11:20 prochlorperazine edisylate Allergy Anaphylaxis Verified 11/21/24 11:20 [From Compazine] prochlorperazine maleate Allergy Anaphylaxis Verified 11/21/24 11:20 [From Compazine] codeine AdvReac Nausea & Verified 11/21/24 11:20 Vomiting & itch Physical Exam Vitals: Vital Signs Temp Pulse Pulse Resp BP BP Pulse Ox 11/21/24 07:44 97.8 F 95 17 161/79 96 11/21/24 02:06 99.5 F 102 H 18 180/98 99 11/21/24 00:13 88 20 168/96 93 L 11/20/24 22:42 73 18 148/80 91 L 11/20/24 21:38 98.8 F 89 20 160/82 91 L Intake and Output 11/20/24 11/21/24 11/21/24 22:59 06:59 14:59 Output Total 750 Balance -750 Output: Urine 750 Other: Voiding Method Incontinent External Catheter Weight 45.359 kg 45.359 kg -GENERAL: The patient is very drowsy and confused and could not provide information HEENT: Pupils are round and equally reacting to light. EOMI. No scleral icterus. No conjunctival pallor. Normocephalic, atraumatic. No pharyngeal erythema. No thyromegaly. CARDIOVASCULAR: S1 and S2 present. No murmurs, rubs, or gallops. PULMONARY: Chest is clear to auscultation, no wheezing , no crackles. -ABDOMEN: Soft, RUQ tenderness and possible enlarged liver, nondistended, normoactive bowel sounds. No palpable organomegaly. MUSCULOSKELETAL: No joint swelling or deformity. EXTREMITIES: No cyanosis, clubbing, or pedal edema. NEUROLOGICAL: Gross neurological examination did not reveal any focal deficits. SKIN: No rashes. no petechiae. Results CBC & Chem 7: 11/20/24 21:43 11/20/24 21:43 Labs: Abnormal Lab Results - Last 24 Hours (Table) 11/20/24 11/20/24 11/20/24 Range/Units 21:43 21:43 21:43 WBC 3.0 L (3.8-10.6) k/uL RBC 3.27 L (3.80-5.40) m/uL Hgb 9.8 L (11.4-16.0) gm/dL Hct 32.0 L (34.0-46.0) % MCHC 30.7 L (31.0-37.0) g/dL RDW 17.5 H (11.5-15.5) % Plt Count 54 L (150-450) k/uL Lymphocytes # 0.5 L (1.0-4.8) k/uL INR 1.2 H (<1.2) APTT 37.2 H (22.0-30.0) sec BUN 19 H (7-17) mg/dL Glucose 108 H (74-99) mg/dL Total Bilirubin 2.2 H (0.2-1.3) mg/dL AST 85 H (14-36) U/L Alkaline Phosphatase 343 H (38-126) U/L Urine Protein (Negative) Urine Blood (Negative) Urine WBC (0-5) /hpf Amorphous Sediment (None) /hpf Urine Bacteria (None) /hpf Influenza Type A (PCR) (Not Detectd) 11/20/24 11/21/24 Range/Units 21:43 03:58 WBC (3.8-10.6) k/uL RBC (3.80-5.40) m/uL Hgb (11.4-16.0) gm/dL Hct (34.0-46.0) % MCHC (31.0-37.0) g/dL RDW (11.5-15.5) % Plt Count (150-450) k/uL Lymphocytes # (1.0-4.8) k/uL INR (<1.2) APTT (22.0-30.0) sec BUN (7-17) mg/dL Glucose (74-99) mg/dL Total Bilirubin (0.2-1.3) mg/dL AST (14-36) U/L Alkaline Phosphatase (38-126) U/L Urine Protein Trace H (Negative) Urine Blood Trace H (Negative) Urine WBC 6 H (0-5) /hpf Amorphous Sediment Rare H (None) /hpf Urine Bacteria Moderate H (None) /hpf Influenza Type A (PCR) Detected A (Not Detectd) Assessment and Plan Assessment: Altered mental status, could be metabolic encephalopathy. Rule out intracranial causes Influenza A infection Intractable nausea vomiting with history of esophageal stricture Lung cancer and metastasis to the liver with liver cancer s/p chemotherapy last dose was last week\\ Pancytopenia, could be secondary to her recent chemotherapy Bilateral punctate nonobstructive renal stone Hypertension, uncontrolled Plan: Patient cannot take oral medication Currently lisinopril 20 mg twice daily, metoprolol 25 mg daily and Norvasc 5 mg daily are on hold Start clonidine patch 0.2 mg and IV hydralazine as needed Eliquis and Plavix are on hold. Hold also subcutaneous heparin until we get CT of the brain negative. Start Tamiflu Continue with IV hydration General Surgery team consult hematology/oncology team consult Further recommendation based on the clinical course DVT prophylaxis mechanical, could resume anticoagulation if CT brain is negative GI prophylaxis: Protonix Prognosis guarded
[2024-11-21] MEDS ORDERED: cloNIDine 0.1 MG/24HR PATCH TRANSDERM SCH (12:30)
[2024-11-21] MEDS: cloNIDine 0.2 MG/24HR PATCH TRANSDERM SCH (13:00)
[2024-11-21] MEDS: OSELTAMIVIR 75 MG CAP PO SCH (13:01)
--- NOTE | 2024-11-21 13:55 | CT ---
EXAMINATION TYPE: CT brain wo con DATE OF EXAM: 11/21/2024 1:49 PM COMPARISON: 11/05/2015 CLINICAL INDICATION: Female, 64 years old with history of ams, AMS TECHNIQUE: CT of the brain is performed utilizing 3 mm thick sections through the posterior fossa and 3 mm thick sections through the remaining calvarium. Study is performed within 24 hours of arrival to the hospital. Contrast used: mL of , (none if empty) CT DLP: 1169.4 mGycm, Automated exposure control for dose reduction was used. FINDINGS: No abnormal hyperdensity is present to suggest an acute intracranial hemorrhage. No mass lesion is evident. No acute infarcts are evident. Ventricles and sulci are appropriate for the patient age. Paranasal sinuses and mastoid air cells within the [id number] are clear. IMPRESSION: 1. No acute intracranial process. Follow up MRI can be performed as clinically indicated. [facility], , 11/21/2024 1:52 PM
[2024-11-21] MEDS: ACETAMINOPHEN SUPPOSITORY 120 MG SUPP RECTAL PRN (14:41)
[2024-11-21] MEDS ORDERED: ACETAMINOPHEN TAB 325 MG TAB PO PRN (15:46)
[2024-11-22] MEDS: HYDROcodone/APAP 10-325MG 1 EACH TAB PO PRN (01:31)
[2024-11-22] MEDS: LEVOTHYROXINE IVP 100 MCG/5 ML VIAL IV SCH (08:43)
[2024-11-22] MEDS: NICOTINE 21MG/24HR PATCH TRANSDERM SCH (08:44)
--- NOTE | 2024-11-22 08:52 | P.CONS ---
History of Present Illness - Reason for Consult Consult date: 11/21/24 Influenza, fever Requesting physician: Mark E Sheet - Chief Complaint Feeling weak nausea and vomiting x days - History of Present Illness Patient is a 64-year-old female with a past medical history significant for coronary disease [place], metastatic lung cancer, did have a chronic hip and back pain presenting to the hospital for evaluation of abdominal and chest pain as well as nausea and vomiting and feeling weak also complaining of generalized bodyaches patient denies having any headache denies significant URI symptoms did have cough which has been mild to moderate intensity not bring up any sputum nausea but no vomiting and no diarrhea patient on presentation to the hospital was afebrile subsequently did spike a fever of 102.1 F patient was mildly tachycardic on admission but not hypotensive mildly hypoxic currently on 3 L current oxygen patient did have white count of 3.0 creatinine 0.72 electrolyte has been normal liver isms are mildly elevated urine has been negative she did tested positive for influenza A COVID RSV was negative patient did have abdominal pelvis CT, gallbladder was reported to be normal but distended and there were punctate nonobstructive bilateral renal stones patient did have a chest x-ray mild cardiomegaly no acute pulmonary process radiographically present patient is started on Tamiflu infectious disease was consulted for further management Review of Systems Positive point and negatives has been mentioned in the HPI, complete review of systems was performed and all other systems are negative Past Medical History Past Medical History: Coronary Artery Disease (CAD), Cancer, Myocardial Infarction ([place]) Additional Past Medical History / Comment(s): Recent falls-"I feel off balance.", chronic R hip and back pain, recent R groin hematoma post PCI/stent, past arm infection (cannot recall laterality) pt states she was treated for 3 years and had picc lines-states it was not MRSA/VRE, current lung and liver cancer stage 4 last chemo on 11/17/24. Last Myocardial Infarction Date:: unknown History of Any Multi-Drug Resistant Organisms: None Reported Past Surgical History: Heart Catheterization With Stent, Orthopedic Surgery Additional Past Surgical History / Comment(s): 03/30/18 PCI with stents then post R groin hematoma, R hip fracture with surgery/hardware, colonoscopy, trachea damage with surgical repair 30 yrs ago, picc lines, kidney stone removal, ureteral stent which she believes has since been removed, hemorrhoidectomy., Past Anesthesia/Blood Transfusion Reactions: Postoperative Nausea & Vomiting (PONV) Date of Last Stent Placement:: 03/30/18 Smoking Status: Current every day smoker - Past Family History Mother Family Medical History: Cancer Additional Family Medical History / Comment(s): Mother is from pancreatic cancer. Father Family Medical History: Cancer Additional Family Medical History / Comment(s): Father is . Pt thinks he passed from cancer but does not know what type. Medications and Allergies Home Medications Medication Instructions Recorded Confirmed Type Clopidogrel [Plavix] 75 mg PO DAILY 30 Days #30 tablet 03/31/18 11/21/24 Rx lamoTRIgine [LaMICtal] 150 mg PO DAILY 04/13/18 11/21/24 History Nicotine 21Mg/24Hr Patch [Habitrol] 1 patch TRANSDERM DAILY PRN 01/25/22 11/21/24 History Nitroglycerin Sl Tabs [Nitrostat] 0.4 mg SL Q5M PRN 01/25/22 11/21/24 History Pantoprazole [Protonix] 40 mg PO BID 01/25/22 11/21/24 History amLODIPine [Norvasc] 5 mg PO DAILY 01/25/22 11/21/24 History ALPRAZolam [Xanax] 0.25 mg PO BID PRN 11/21/24 11/21/24 History Acyclovir 5% Oint [Zovirax Oint] 1 applic TOPICAL DAILY PRN 11/21/24 11/21/24 History Albuterol Inhaler [Ventolin Hfa 2 puff INHALATION RT-QID PRN 11/21/24 11/21/24 History Inhaler] Apixaban [Eliquis] 2.5 mg PO BID 11/21/24 11/21/24 History Fluticasone Propion/Salmeterol 1 puff INHALATION RT-BID 11/21/24 11/21/24 History [Wixela 250-50 Inhub] HYDROcodone/APAP 10-325MG [[place] 2 tab PO Q4HR 11/21/24 11/21/24 History 10-325] Hyoscyamine Sulfate [Levsin] 0.125 mg PO Q4H PRN 11/21/24 11/21/24 History Isosorbide Mononitrate ER [Imdur] 90 mg PO BID 11/21/24 11/21/24 History Lactulose 10 gm PO BID PRN 11/21/24 11/21/24 History Levothyroxine Sodium [Levoxyl] 75 mcg PO DAILY 11/21/24 11/21/24 History Lidocaine Viscous 2% [Xylocaine 5 ml PO QID PRN 11/21/24 11/21/24 History Viscous] Lidocaine-Prilocaine Cream [Emla 1 applic TOPICAL DAILY PRN 11/21/24 11/21/24 History Cream 2.5%/2.5%] Lubiprostone 8 mcg PO BID@0730,2100 11/21/24 11/21/24 History Metoprolol Succinate [Metoprolol 25 mg PO DAILY 11/21/24 11/21/24 History Succinate ER] Ondansetron Odt [Zofran Odt] 4 mg PO TID PRN 11/21/24 11/21/24 History diazePAM [Valium] 2 mg PO HS PRN 11/21/24 11/21/24 History fentaNYL 100MCG/HR PATCH 1 patch TRANSDERM Q72H 11/21/24 11/21/24 History [Duragesic 100MCG/HR] fentaNYL 25MCG/HR PATCH [[place]ages[place] 1 patch TRANSDERM Q72H 11/21/24 11/21/24 History 25MCG/HR] lisinopriL [Zestril] 20 mg PO BID 11/21/24 11/21/24 History Allergies Allergy/AdvReac Type Severity Reaction Status Date / Time cyclobenzaprine HCl Allergy Anaphylaxis Verified 11/21/24 11:20 [From Flexeril] Iodinated Contrast Media Allergy Rash/Hives Verified 11/21/24 11:20 [Iodinated Contrast- Oral and IV Dye] iodine Allergy Rash/Hives, Verified 11/21/24 11:20 flushed,cris sea Penicillins Allergy Dyspnea Verified 11/21/24 11:20 prochlorperazine edisylate Allergy Anaphylaxis Verified 11/21/24 11:20 [From Compazine] prochlorperazine maleate Allergy Anaphylaxis Verified 11/21/24 11:20 [From Compazine] codeine AdvReac Nausea & Verified 11/21/24 11:20 Vomiting & itch Physical Exam Vitals: Vital Signs Temp Pulse Pulse Resp BP BP Pulse Ox 11/21/24 07:44 97.8 F 95 17 161/79 96 11/21/24 02:06 99.5 F 102 H 18 180/98 99 11/21/24 00:13 88 20 168/96 93 L 11/20/24 22:42 73 18 148/80 91 L 11/20/24 21:38 98.8 F 89 20 160/82 91 L Intake and Output 11/20/24 11/21/24 11/21/24 22:59 06:59 14:59 Output Total 750 Balance -750 Output: Urine 750 Other: Voiding Method Incontinent External Catheter Weight 45.359 kg 45.359 kg GENERAL DESCRIPTION: Elderly female lying in bed, no distress. No tachypnea or accessory muscle of respiration use. HEENT: Shows Pallor , no scleral icterus. Oral mucous membrane is dry. NECK: Trachea central, no thyromegaly. LUNGS: Unlabored breathing. Decreased breath sound at the base HEART: S1, S2, regular rate and rhythm. No loud murmur ABDOMEN: Soft, no tenderness , EXTREMITIES: No edema of feet. SKIN: No rash, no masses palpable. NEUROLOGICAL: The patient is awake, alert, mood and affect normal. Results CBC & Chem 7: 11/20/24 21:43 11/20/24 21:43 Labs: Abnormal Lab Results - Last 24 Hours (Table) 11/20/24 11/20/24 11/20/24 Range/Units 21:43 21:43 21:43 WBC 3.0 L (3.8-10.6) k/uL RBC 3.27 L (3.80-5.40) m/uL Hgb 9.8 L (11.4-16.0) gm/dL Hct 32.0 L (34.0-46.0) % MCHC 30.7 L (31.0-37.0) g/dL RDW 17.5 H (11.5-15.5) % Plt Count 54 L (150-450) k/uL Lymphocytes # 0.5 L (1.0-4.8) k/uL INR 1.2 H (<1.2) APTT 37.2 H (22.0-30.0) sec BUN 19 H (7-17) mg/dL Glucose 108 H (74-99) mg/dL Total Bilirubin 2.2 H (0.2-1.3) mg/dL AST 85 H (14-36) U/L Alkaline Phosphatase 343 H (38-126) U/L Urine Protein (Negative) Urine Blood (Negative) Urine WBC (0-5) /hpf Amorphous Sediment (None) /hpf Urine Bacteria (None) /hpf Influenza Type A (PCR) (Not Detectd) 11/20/24 11/21/24 Range/Units 21:43 03:58 WBC (3.8-10.6) k/uL RBC (3.80-5.40) m/uL Hgb (11.4-16.0) gm/dL Hct (34.0-46.0) % MCHC (31.0-37.0) g/dL RDW (11.5-15.5) % Plt Count (150-450) k/uL Lymphocytes # (1.0-4.8) k/uL INR (<1.2) APTT (22.0-30.0) sec BUN (7-17) mg/dL Glucose (74-99) mg/dL Total Bilirubin (0.2-1.3) mg/dL AST (14-36) U/L Alkaline Phosphatase (38-126) U/L Urine Protein Trace H (Negative) Urine Blood Trace H (Negative) Urine WBC 6 H (0-5) /hpf Amorphous Sediment Rare H (None) /hpf Urine Bacteria Moderate H (None) /hpf Influenza Type A (PCR) Detected A (Not Detectd) Assessment and Plan (1) Influenza A Current Visit: Yes Status: Acute Code(s): J10.1 - FLU DUE TO OTH IDENT INFLUENZA VIRUS W OTH RESP MANIFEST SNOMED Code(s): 450627223 (2) Penicillin allergy Current Visit: Yes Status: Acute Code(s): Z88.0 - ALLERGY STATUS TO PE NICILLIN SNOMED Code(s): 93058161 (3) Elevated liver enzymes Current Visit: Yes Status: Acute Code(s): R74.8 - ABNORMAL LEVELS OF OTHER SERUM ENZYMES SNOMED Code(s): 159283894 Plan: 1patient presented to hospital with generalized weakness nausea vomiting she also have a cough and a fever has been diagnosed with acute influenza A patient chest x-ray was negative for acute infiltrate patient did have elevated liver enzymes with symptoms of nausea vomiting need to rule out gallbladder disease though CT reported gallbladder to be normal but distended 2penicillin allergy that will limit the number of antibiotics safe to use 3check an ultrasound of the liver and gallbladder area 4Tamiflu 75 mg p.o. twice daily for 5 days We will follow on clinical condition and cultures to further adjust medication if needed Thank you for this consultation we will follow the patient along with you Dictation was produced using [employer] dictation software. please excuse any grammatical, word or spelling errors.
--- NOTE | 2024-11-22 09:52 | US ---
EXAMINATION TYPE: US abdomen limited DATE OF EXAM: 11/22/2024 COMPARISON: CT 11/21/2024 CLINICAL INDICATION: Female, 64 years old with history of Elevated liver enzymes rule out cholecystit is; Hx of Liver Ca per patient. TECHNIQUE: Grayscale and color Doppler imaging of the right upper quadrant was performed. FINDINGS: EXAM MEASUREMENTS: Liver Length: 20.2 cm Gallbladder Wall: 0.3 cm CBD: 0.8 cm Right Kidney: 9.3 x 4.7 x 3.9 cm CADDY PACKER NOTES: Pancreas: Tail obscured by overlying bowel gas duct visualized 2 mm. Liver: Portal vein thrombosis seen measuring 2.7 x 3.8 cm. Hypoechoic area left lobe 2.6 x 2.3 x 2.3 cm. There is evidence of color Doppler flow within the filling defect within the portal vein.a Gallbladder: 10 x 5.3 cm appears enlarged with pericholecystic fluid seen. Evidence for sonographic Bae's sign: no CBD: Dilated. Right Kidney: No hydronephrosis or masses seen IMPRESSION: 1. Trace free fluid around the gallbladder with gallbladder wall is within normal limits. No sonogra phic Bae sign identified by rn trauma.. 2. 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 [facility], , 11/22/2024 9:50 AM
[2024-11-22 11:32] LABS: Anisocytosis Slight; Basophils % (A) 0 %; Eosinophils % (A) 0 %; HCT 31.6 % (34.0-46.0); HGB 9.4 gm/dL (11.4-16.0); Hypochromasia Marked; Lymphocytes # (A) 1.1 k/uL (1.0-4.8); Lymphocytes % (A) 25 %; MCH 29.8 pg (25.0-35.0); MCHC 29.6 g/dL (31.0-37.0); MCV 100.6 fL (80.0-100.0); Macrocytosis Moderate; Mean Platelet Volume 10.3; Monocytes # (A) 0.2 k/uL (0-1.0); Monocytes % (A) 4 %; Neutrophils # (A) 2.9 k/uL (1.3-7.7); Neutrophils % (A) 68 %; RBC 3.14 m/uL (3.80-5.40); RDW 17.8 % (11.5-15.5); WBC 4.2 k/uL (3.8-10.6)
[2024-11-22 11:39] LABS: ALT 20 U/L (4-34); AST 76 U/L (14-36); African American GFR (CKD) >90 (>60 ml/min/1.73 sqM); Albumin 3.2 g/dL (3.5-5.0); Albumin/Globulin Ratio 1.4; Alkaline Phosphatase 291 U/L (38-126); Anion Gap 8 mmol/L; Bilirubin,Unconjugated 0.7 mg/dL (0.0-1.1); Blood Urea Nitrogen 18 mg/dL (7-17); Calcium 8.5 mg/dL (8.4-10.2); Carbon Dioxide 22 mmol/L (22-30); Chloride 108 mmol/L (98-107); Globulin 2.3 g/dL; Glucose 80 mg/dL (74-99); Non-African American GFR(CKD) >90 (>60 ml/min/1.73 sqM); Sodium 138 mmol/L (137-145); Total Bilirubin 1.8 mg/dL (0.2-1.3); Total Protein 5.5 g/dL (6.3-8.2)
[2024-11-22 13:41] LABS: Platelet Count 41 k/uL (150-450)
--- NOTE | 2024-11-22 14:34 | P.GSCN ---
History of Present Illness Consult date: 11/22/24 History of present illness: CHIEF COMPLAINT: Abdominal pain HISTORY OF PRESENT ILLNESS: This is a 64-year-old female with a history of metastatic lung cancer and liver cancer. Patient is a poor historian. She reports coming to the hospital due to cough. She was producing phlegm with a small amounts of blood. She did have a fever of 102 and was found to have influ vin A positive. Patient does have abdominal pain across upper and lower abdomen. She reports that the pain is chronic. Per nursing staff patient may have been on palliative care or hospice at home. Patient had a CT scan abdomen pelvis reporting bilateral renal stones nonobstructing. Patient reports no nausea or vomiting. She reports having bowel movements. But she does have evidence of constipation on imaging. PAST MEDICAL HISTORY: See below PAST SURGICAL HISTORY: See below MEDICATIONS: See below ALLERGIES: See below SOCIAL HISTORY: No illicit drug use. REVIEW OF SYSTEMS: CONSTITUTIONAL: Denies fever or chills. HEENT: Denies blurred vision, vision changes, or eye pain. Denies hemoptysis CARDIOVASCULAR: Denies chest pain or pressure. RESPIRATORY: No shortness of breath. GASTROINTESTINAL: See HPI for pertinent findings HEMATOLOGIC: Denies bleeding disorders. GENITOURINARY: Denies any blood in urine or increased urinary frequency. SKIN: Denies pruitis. Denies rash. PHYSICAL EXAM: VITAL SIGNS: Reviewed GENERAL: Well-developed in no acute distress. ABDOMEN: Soft. Nondistended. Tenderness with palpation across the upper abdomen and across the lower abdomen. NEUROLOGIC: Awake and alert. LABORATORY DATA: WBC 4.2 Hgb 9.4 platelets 41 Sodium 138 potassium 4.0 creatinine 0.61 Total bilirubin 1.8 AST 76 ALT 20 alk phos 291 Lipase 213 Influenza A positive IMAGING: CT scan abdomen pelvis reports nonobstructing bilateral renal stones Abdominal ultrasound reports trace free fluid around the gallbladder with gallbladder wall within normal limits. Gallbladder is enlarged. No Bae sign. 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 CT brain no acute intracranial process ASSESSMENT: 1. Abdominal pain likely due to constipation and liver cancer 2. Elevated LFTs likely due to the liver cancer. Ultrasound did note enlarged gallbladder with pericholecystic fluid 3. History of metastatic lung cancer and liver cancer 4. Portal vein filling defect suggesting tumor thrombus noted on abdominal ultrasound 5. Influenza PLAN: -Lactulose twice daily and MiraLAX daily added for constipation -No surgical intervention planned Physician Breastfeeding Program Coordinator note has been reviewed by physician. Signing provider agrees with the documented findings, assessment, and plan of care. I have personally seen and examined the patient, reviewed the HOME HEALTH LPN /PAs history, exam and MDM and agree with the assessment and plan as written. Based on total visit time, I have performed more than 50% of the visit. As above: Patient having abdominal discomforts. States this is chronic in nature. Patient states she recently completed a treatment for her liver malignancy. States she is interested in hospice. Continue symptomatic treatment. Will follow. Past Medical History Past Medical History: Coronary Artery Disease (CAD), Cancer, Myocardial Infarction ([place]) Additional Past Medical History / Comment(s): Recent falls-"I feel off balance.", chronic R hip and back pain, recent R groin hematoma post PCI/stent, past arm infection (cannot recall laterality) pt states she was treated for 3 years and had picc lines-states it was not MRSA/VRE, current lung and liver cancer stage 4 last chemo on 11/17/24. Last Myocardial Infarction Date:: unknown History of Any Multi-Drug Resistant Organisms: None Reported Past Surgical History: Heart Catheterization With Stent, Orthopedic Surgery Additional Past Surgical History / Comment(s): 03/30/18 PCI with stents then post R groin hematoma, R hip fracture with surgery/hardware, colonoscopy, trachea damage with surgical repair 30 yrs ago, picc lines, kidney stone removal, ureteral stent which she believes has since been removed, hemorrhoidectomy., Past Anesthesia/Blood Transfusion Reactions: Postoperative Nausea & Vomiting (PONV) Date of Last Stent Placement:: 03/30/18 Smoking Status: Current every day smoker - Past Family History Mother Family Medical History: Cancer Additional Family Medical History / Comment(s): Mother is from pancreatic cancer. Father Family Medical History: Cancer Additional Family Medical History / Comment(s): Father is . Pt thinks he passed from cancer but does not know what type. Medications and Allergies Home Medications Medication Instructions Recorded Confirmed Type Clopidogrel [Plavix] 75 mg PO DAILY 30 Days #30 tablet 03/31/18 11/21/24 Rx lamoTRIgine [LaMICtal] 150 mg PO DAILY 04/13/18 11/21/24 History Nicotine 21Mg/24Hr Patch [Habitrol] 1 patch TRANSDERM DAILY PRN 01/25/22 History Nitroglycerin Sl Tabs [Nitrostat] 0.4 mg SL Q5M PRN 01/25/22 11/21/24 History Pantoprazole [Protonix] 40 mg PO BID 01/25/22 11/21/24 History amLODIPine [Norvasc] 5 mg PO DAILY 01/25/22 11/21/24 History ALPRAZolam [Xanax] 0.25 mg PO BID PRN 11/21/24 11/21/24 History Acyclovir 5% Oint [Zovirax Oint] 1 applic TOPICAL DAILY PRN 11/21/24 11/21/24 History Albuterol Inhaler [Ventolin Hfa 2 puff INHALATION RT-QID PRN 11/21/24 11/21/24 History Inhaler] Apixaban [Eliquis] 2.5 mg PO BID 11/21/24 11/21/24 History Fluticasone Propion/Salmeterol 1 puff INHALATION RT-BID 11/21/24 11/21/24 History [Wixela 250-50 Inhub] HYDROcodone/APAP 10-325MG [Williams 2 tab PO Q4HR 11/21/24 11/21/24 History 10-325] Hyoscyamine Sulfate [Levsin] 0.125 mg PO Q4H PRN 11/21/24 11/21/24 History Isosorbide Mononitrate ER [Imdur] 90 mg PO BID 11/21/24 11/21/24 History Lactulose 10 gm PO BID PRN 11/21/24 11/21/24 History Levothyroxine Sodium [Levoxyl] 75 mcg PO DAILY 11/21/24 11/21/24 History Lidocaine Viscous 2% [Xylocaine 5 ml PO QID PRN 11/21/24 11/21/24 History Viscous] Lidocaine-Prilocaine Cream [Emla 1 applic TOPICAL DAILY PRN 11/21/24 11/21/24 History Cream 2.5%/2.5%] Lubiprostone 8 mcg PO BID@0730,2100 11/21/24 11/21/24 History Metoprolol Succinate [Metoprolol 25 mg PO DAILY 11/21/24 11/21/24 History Succinate ER] Ondansetron Odt [Zofran Odt] 4 mg PO TID PRN 11/21/24 11/21/24 History diazePAM [Valium] 2 mg PO HS PRN 11/21/24 11/21/24 History fentaNYL 100MCG/HR PATCH 1 patch TRANSDERM Q72H 11/21/24 11/21/24 History [Duragesic 100MCG/HR] fentaNYL 25MCG/HR PATCH [Duragesic 1 patch TRANSDERM Q72H 11/21/24 11/21/24 History 25MCG/HR] lisinopriL [Zestril] 20 mg PO BID 11/21/24 11/21/24 History Allergies Allergy/AdvReac Type Severity Reaction Status Date / Time cyclobenzaprine HCl Allergy Anaphylaxis Verified 11/21/24 11:20 [From Flexeril] Iodinated Contrast Media Allergy Rash/Hives Verified 11/21/24 11:20 [Iodinated Contrast- Oral and IV Dye] iodine Allergy Rash/Hives, Verified 11/21/24 11:20 flushed,cris sea Penicillins Allergy Dyspnea Verified 11/21/24 11:20 prochlorperazine edisylate Allergy Anaphylaxis Verified 11/21/24 11:20 [From Compazine] prochlorperazine maleate Allergy Anaphylaxis Verified 11/21/24 11:20 [From Compazine] codeine AdvReac Nausea & Verified 11/21/24 11:20 Vomiting & itch Surgical - Exam Vital Signs Temp Pulse Resp BP Pulse Ox 98.8 F 89 20 160/82 91 L 11/20/24 21:38 11/20/24 21:38 11/20/24 21:38 11/20/24 21:38 11/20/24 21:38 Results - Labs 11/22/24 11:09 11/22/24 11:09 Abnormal Lab Results - Last 24 Hours (Table) 11/22/24 Range/Units 11:09 Chloride 108 H (98-107) mmol/L BUN 18 H (7-17) mg/dL Total Bilirubin 1.8 H (0.2-1.3) mg/dL AST 76 H (14-36) U/L Alkaline Phosphatase 291 H (38-126) U/L Total Protein 5.5 L (6.3-8.2) g/dL Albumin 3.2 L (3.5-5.0) g/dL Diabetes panel 11/22/24 Range/Units 11:09 Sodium 138 (137-145) mmol/L Potassium 4.0 (3.5-5.1) mmol/L Chloride 108 H (98-107) mmol/L Carbon Dioxide 22 (22-30) mmol/L BUN 18 H (7-17) mg/dL Creatinine 0.61 (0.52-1.04) mg/dL Glucose 80 (74-99) mg/dL Calcium 8.5 (8.4-10.2) mg/dL AST 76 H (14-36) U/L ALT 20 (4-34) U/L Alkaline Phosphatase 291 H (38-126) U/L Total Protein 5.5 L (6.3-8.2) g/dL Albumin 3.2 L (3.5-5.0) g/dL Calcium panel 11/22/24 Range/Units 11:09 Calcium 8.5 (8.4-10.2) mg/dL Albumin 3.2 L (3.5-5.0) g/dL Pituitary panel 11/22/24 Range/Units 11:09 Sodium 138 (137-145) mmol/L Potassium 4.0 (3.5-5.1) mmol/L Chloride 108 H (98-107) mmol/L Carbon Dioxide 22 (22-30) mmol/L BUN 18 H (7-17) mg/dL Creatinine 0.61 (0.52-1.04) mg/dL Glucose 80 (74-99) mg/dL Calcium 8.5 (8.4-10.2) mg/dL Adrenal panel 11/22/24 Range/Units 11:09 Sodium 138 (137-145) mmol/L Potassium 4.0 (3.5-5.1) mmol/L Chloride 108 H (98-107) mmol/L Carbon Dioxide 22 (22-30) mmol/L BUN 18 H (7-17) mg/dL Creatinine 0.61 (0.52-1.04) mg/dL Glucose 80 (74-99) mg/dL Calcium 8.5 (8.4-10.2) mg/dL Total Bilirubin 1.8 H (0.2-1.3) mg/dL AST 76 H (14-36) U/L ALT 20 (4-34) U/L Alkaline Phosphatase 291 H (38-126) U/L Total Protein 5.5 L (6.3-8.2) g/dL Albumin 3.2 L (3.5-5.0) g/dL
[2024-11-22] MEDS: polyethylene glycoL 3350 17 GM POWD.PACK PO SCH (14:54)
--- NOTE | 2024-11-22 15:22 | P.CONS ---
History of Present Illness - Reason for Consult Consult date: 11/22/24 pancytopenia Requesting physician: Mark E Sheet - Chief Complaint abd pain - History of Present Illness Mrs. Burnett is a 64-year-old female patient of Medical Oncologist Dr. Stein with a history of locally advanced hepatocellular carcinoma, unresectable. She has been on tecentriq and avastin, most recently treated with Cyramza, 11/17/2024, cycle 3-day 1. She saw Dr. Stein on 11/16/2024. His staff reports that there is no documentation about hospice discussion. Staff there reports that pt has called there several times today wanting to be transferred. Currently patient is admitted with intractable nausea and vomiting. She has been provided with medications for the same. She has also been diagnosed with influenza A. Tmax 102.1. When seen patient is mildly confused, when I asked her about her malignancy history she stated that "I do not want to give that inf ormation out". She was agreeable to give me the name of her Oncologist, then she proceeded to call her Oncologist office for me to talk to them. Patient is not able to tell me much about the last several days-when did you start feeling unwell, who brought you to the hospital-she is pretty distracted. She reports that she wants to "go home with hospice". Abdomen and pelvis CT without contrast is not reporting any significant abnormalities to account for the abdominal pain. Chest x-ray no acute pulmonary process. Brain CT without contrast no acute intracranial process abdominal ultrasound reporting a portal vein tumor thrombosis dilated common bile duct, Hgb 9.4, mildly macrocytic at 100.6, platelets 41,000 bilirubin 1.8, alk phos 291, normal amylase and lipase, flu a positive. Did clarify patient's HCC, the staff assisting me was not able to locate any diagnosis of lung cancer. Review of Systems Focused review of systems is as stated in HPI, difficult to obtain review of systems because of patient's irritability Past Medical History Past Medical History: Coronary Artery Disease (CAD), Cancer, Myocardial Infarction ([place]) Additional Past Medical History / Comment(s): Recent falls-"I feel off balance.", chronic R hip and back pain, recent R groin hematoma post PCI/stent, past arm infection (cannot recall laterality) pt states she was treated for 3 years and had picc lines-states it was not MRSA/VRE, current lung and liver cancer stage 4 last chemo on 11/17/24. Last Myocardial Infarction Date:: unknown History of Any Multi-Drug Resistant Organisms: None Reported Past Surgical History: Heart Catheterization With Stent, Orthopedic Surgery Additional Past Surgical History / Comment(s): 03/30/18 PCI with stents then post R groin hematoma, R hip fracture with surgery/hardware, colonoscopy, trachea damage with surgical repair 30 yrs ago, picc lines, kidney stone removal, ureteral stent which she believes has since been removed, hemorrhoidectomy., Past Anesthesia/Blood Transfusion Reactions: Postoperative Nausea & Vomiting (PONV) Date of Last Stent Placement:: 03/30/18 Smoking Status: Current every day smoker - Past Family History Mother Family Medical History: Cancer Additional Family Medical History / Comment(s): Mother is from pancreatic cancer. Father Family Medical History: Cancer Additional Family Medical History / Comment(s): Father is . Pt thinks he passed from cancer but does not know what type. Medications and Allergies Home Medications Medication Instructions Recorded Confirmed Type Clopidogrel [Plavix] 75 mg PO DAILY 30 Days #30 tablet 03/31/18 11/21/24 Rx lamoTRIgine [LaMICtal] 150 mg PO DAILY 04/13/18 11/21/24 History Nicotine 21Mg/24Hr Patch [Habitrol] 1 patch TRANSDERM DAILY PRN 01/25/22 11/21/24 History Nitroglycerin Sl Tabs [Nitrostat] 0.4 mg SL Q5M PRN 01/25/22 11/21/24 History Pantoprazole [Protonix] 40 mg PO BID 01/25/22 11/21/24 History amLODIPine [Norvasc] 5 mg PO DAILY 01/25/22 11/21/24 History ALPRAZolam [Xanax] 0.25 mg PO BID PRN 11/21/24 11/21/24 History Acyclovir 5% Oint [Zovirax Oint] 1 applic TOPICAL DAILY PRN 11/21/24 11/21/24 History Albuterol Inhaler [Ventolin Hfa 2 puff INHALATION RT-QID PRN 11/21/24 11/21/24 History Inhaler] Apixaban [Eliquis] 2.5 mg PO BID 11/21/24 11/21/24 History Fluticasone Propion/Salmeterol 1 puff INHALATION RT-BID 11/21/24 11/21/24 History [Wixela 250-50 Inhub] HYDROcodone/APAP 10-325MG [Monument 2 tab PO Q4HR 11/21/24 11/21/24 History 10-325] Hyoscyamine Sulfate [Levsin] 0.125 mg PO Q4H PRN 11/21/24 11/21/24 History Isosorbide Mononitrate ER [Imdur] 90 mg PO BID 11/21/24 11/21/24 History Lactulose 10 gm PO BID PRN 11/21/24 11/21/24 History Levothyroxine Sodium [Levoxyl] 75 mcg PO DAILY 11/21/24 11/21/24 History Lidocaine Viscous 2% [Xylocaine 5 ml PO QID PRN 11/21/24 11/21/24 History Viscous] Lidocaine-Prilocaine Cream [Emla 1 applic TOPICAL DAILY PRN 11/21/24 11/21/24 History Cream 2.5%/2.5%] Lubiprostone 8 mcg PO BID@0730,2100 11/21/24 11/21/24 History Metoprolol Succinate [Metoprolol 25 mg PO DAILY 11/21/24 11/21/24 History Succinate ER] Ondansetron Odt [Zofran Odt] 4 mg PO TID PRN 11/21/24 11/21/24 History diazePAM [Valium] 2 mg PO HS PRN 11/21/24 11/21/24 History fentaNYL 100MCG/HR PATCH 1 patch TRANSDERM Q72H 11/21/24 11/21/24 History [Duragesic 100MCG/HR] fentaNYL 25MCG/HR PATCH [Duragesic 1 patch TRANSDERM Q72H 11/21/24 11/21/24 History 25MCG/HR] lisinopriL [Zestril] 20 mg PO BID 11/21/24 11/21/24 History Allergies Allergy/AdvReac Type Severity Reaction Status Date / Time cyclobenzaprine HCl Allergy Anaphylaxis Verified 11/21/24 11:20 [From Flexeril] Iodinated Contrast Media Allergy Rash/Hives Verified 11/21/24 11:20 [Iodinated Contrast- Oral and IV Dye] iodine Allergy Rash/Hives, Verified 11/21/24 11:20 flushed,cris sea Penicillins Allergy Dyspnea Verified 11/21/24 11:20 prochlorperazine edisylate Allergy Anaphylaxis Verified 11/21/24 11:20 [From Compazine] prochlorperazine maleate Allergy Anaphylaxis Verified 11/21/24 11:20 [From Compazine] codeine AdvReac Nausea & Verified 11/21/24 11:20 Vomiting & itch Physical Exam Vitals: Vital Signs Temp Pulse Resp BP BP Pulse Ox 11/22/24 07:04 98.5 F 72 16 151/75 96 11/22/24 02:45 98.5 F 74 16 144/68 96 11/21/24 20:16 98.2 F 91 16 164/81 97 11/21/24 13:36 102.1 F H 91 16 133/69 95 Intake and Output 11/21/24 11/22/24 11/22/24 22:59 06:59 14:59 Intake Total 2397 1650 Output Total 700 Balance 1697 1650 Intake: Oral 2397 1650 Output: Urine 700 Other: Voiding Method External Catheter # Voids 5 # Bowel Movements 1 - Constitutional General appearance: average body habitus, disheveled, mild distress - EENT Eyes: anicteric sclerae, EOMI ENT: hearing grossly normal - Neck Neck: no lymphadenopathy - Respiratory Respiratory: bilateral: CTA - Cardiovascular Rhythm: regular Heart sounds: normal: S1, S2 Abnormal Heart Sounds: systolic murmur, no diastolic murmur, no rub, no S3 Gallop, no S4 Gallop, no click, no other leg Peripheral Edema: bilateral: None - Gastrointestinal General gastrointestinal: no absent bowel sounds, no decreased bowel sounds, no distended, no hepatomegaly, hyperactive bowel sounds, no normal bowel sounds, no organomegaly, no rigid, no scaphoid, soft, no splenomegaly, tenderness, no umbilical hernia, no ventral hernia - Integumentary Integumentary: normal - Neurologic Neurologic: CNII-XII intact - Musculoskeletal Musculoskeletal: generalized weakness, strength equal bilaterally - Psychiatric Psychiatric: A&O x's 3, appropriate affect, intact judgment & insight Results CBC & Chem 7: 11/22/24 11:09 11/22/24 11:09 Chest x-ray: report reviewed CT scan - abdomen: report reviewed CT Scan - head: report reviewed CT scan - pelvis: report reviewed US - abdomen: report reviewed Assessment and Plan (1) Influenza A Current Visit: Yes Status: Acute Priority: High Code(s): J10.1 - FLU DUE TO OTH IDENT INFLUENZA VIRUS W OTH RESP MANIFEST SNOMED Code(s): 472557655 (2) HCC (hepatocellular carcinoma) Current Visit: Yes Status: Chronic Priority: Medium Code(s): C22.0 - LIVER CELL CARCINOMA SNOMED Code(s): 292961376 (3) Portal vein thrombosis secondary to HCC invasion Current Visit: Yes Status: Acute Priority: Medium Code(s): C22.0 - LIVER CELL CARCINOMA; I81 - PORTAL VEIN THROMBOSIS SNOMED Code(s): 75052514 Plan: Influenza A -Internal medicine Infectious Disease following -Antiviral treatment and antibiotics Hepatocellular carcinoma -Information I was able to obtain from someone in that office over the phone- diagnosis of locally advanced, unresectable, HCC. She was on Tecentriq and Avastin and more recently, Cyramza, with treatment on November 17, cycle 3-day 1. She was due for treatment f/u imaging studies on the , will inquire about this with her when seen tomorrow. Portal vein thrombosis -Reported as possible tumor thrombus. -Patient was noted to be on 2.5 mg of Eliquis twice daily as well as Plavix. Both have been held because of low platelet counts. -CBC ordered daily. Resume patient on anticoagulation and antiplatelet therapy as soon as plt>50,000 Time with Patient: Greater than 30
[2024-11-22 16:23] VITALS: BMI 17.6
[2024-11-22] MEDS: LACTULOSE 20 GM/30 ML CUP PO SCH (22:47)
--- NOTE | 2024-11-23 06:22 | P.PN ---
Subjective Progress Note Date: 11/22/24 This is a pleasant 64 years old female with past medical history of multiple medical problems as below. Including history of stage IV liver and lung cancer. GERD with possible esophageal stricture CAD status post 5 x stents as well as chronic total occlusion of the LAD, hypertension/hyperlipidemia, active smoker, Patient presents because of tractable nausea vomiting there was a blood and also with abdominal pain per records. When I saw the patient she was very drowsy, she woke up to verbal stimuli she told me she is in the hospital but she was disoriented to time. She could name the president is Tal and then go back to sleep. She is very poor historian. No further information could she provide As per notes she got last chemotherapy on 11/17/2024 Patient is afebrile and hemodynamically stable Labs showing pancytopenia with WBC 3, hemoglobin 9.8 and platelet count 54 Liver enzymes mildly elevated and bilirubin mildly elevated. BMP is unremarkable, urinalysis is unremarkable. INR is within the reference range and troponin is negative. Influenza A is positive, where COVID is negative Chest x-ray is negative for acute process CT of the abdomen pelvis without contrast showing nonobstructive punctate bilateral renal stones Patient started on normal saline and admitted to the hospital 11/22/2024 Patient is seen in follow-up today maintained on precautions for influenza A. Patient is significantly weak and extremely poor historian being followed by oncology as well. Patient reports she does not want to be here any longer and wants to go home. Patient also discussing that she is considering hospice and would like to go home on hospice. Will discuss further with as patient apparently is not alert and oriented x 3. Patient continues to report significant pain and asking when she can receive more pain meds. Review of systems: Constitutional: reports of fatigue, continued fever, or chills Cardiovascular: No reports of chest pain or palpitations Respiratory: reports of shortness of breath and cough GI: No reports of nausea, vomiting, or diarrhea, reports no appetite : No reports of dysuria or retention Neurovascular:reports of generalized weakness All medications have been reviewed Physical exam: Gen: This is a 64-year-old female who is awake, alert and oriented x 2, thin built, elderly appearing, ill-appearing HEENT: Head is atraumatic, normocephalic. Pupils equal, round. Sclerae is anicteric. NECK: Supple. No JVD. No lymphadenopathy. No thyromegaly. LUNGS: Diminished breath sounds bilaterally with some coarse rhonchi and bronchial congestion noted. No intercostal retractions. HEART: S1, S2 are muffled ABDOMEN: Soft. Thin. Bowel sounds are present. No masses. No tenderness. EXTREMITIES: No pedal edema. No calf tenderness. NEUROLOGICAL: Patient is awake, alert and oriented x 12. Cranial nerves 2 through 12 are grossly intact. Diffusely weak Assessment: Altered mental status, likely metabolic encephalopathy. Rule out intracranial causes. Initially MRI was ordered although patient per recently had an MRI at [facility] and attempting to obtain these records Influenza A infection, continued on Tamiflu Intractable nausea vomiting with history of esophageal stricture, improving Lung cancer and metastasis to the liver with liver cancer s/p chemotherapy last dose was last week Pancytopenia, could be secondary to her recent chemotherapy Bilateral punctate nonobstructive renal stone Hypertension, uncontrolled Moderate calorie protein malnutrition with a BMI of 17.7 GI prophylaxis DVT prophylaxis, mechanical, awaiting to discuss with consults regarding resuming anticoagulation No code Plan: Patient cannot take oral medication Currently lisinopril 20 mg twice daily, metoprolol 25 mg daily and Norvasc 5 mg daily are on hold Continue clonidine patch 0.2 mg and IV hydralazine as needed Eliquis and Plavix are on hold. Hold also subcutaneous heparin until we get CT of the brain negative. Patient to continue on Tamiflu Continue with IV hydration and will follow-up on repeat labs General Surgery team evaluated the patient with no plans of surgical intervention hematology/oncology team following and awaiting records of recent MRI done at [facility] Further recommendation based on the clinical course DVT prophylaxis mechanical, could resume anticoagulation if CT brain is negative GI prophylaxis: Protonix Overall prognosis is poor and guarded. Patient discussing wanting to go home on hospice. Will discuss further with who is also home sick with influenza The impression and plan of care has been dictated by Luly Aden, Nurse Practitioner as directed. Dr. Odell MD I have performed a history and examination and MDM of this patient, discussed the same with the dictator, and agree with the dictator's assessment and plan as written ,documented as a scribe. Based on total visit time, I have performed more than 50% of the visit. Objective - Vital Signs Vital signs: Vital Signs Temp 98.5 F 01/13/25 07:04 Pulse 72 11/22/24 07:04 Resp 16 11/22/24 07:04 BP 151/75 11/22/24 07:04 Pulse Ox 96 11/22/24 07:04 FiO2 Intake & Output 11/21/24 11/22/24 11/22/24 18:59 06:59 18:59 Intake Total 1000 3047 Output Total 700 Balance 300 3047 Intake: Oral 1000 3047 Output: Urine 700 Other: Voiding Method External Catheter External Catheter # Voids 5 # Bowel Movements 1 - Labs CBC & Chem 7: 11/22/24 11:09 11/22/24 11:09
[2024-11-23 07:41] VITALS: RESP 16
[2024-11-23 08:48] LABS: ALT 18 U/L (8-44); AST 74 U/L (13-35); Albumin 3.1 g/dL (3.8-4.9); Albumin/Globulin Ratio 1.82 Ratio (1.60-3.17); Alkaline Phosphatase 261 U/L (41-126); BUN/Creat Ratio 21.33 Ratio (12.00-20.00); Blood Urea Nitrogen 12.8 mg/dL (9.0-27.0); Chloride 109 mmol/L (96-109); Globulin 1.7 g/dL (1.6-3.3); Glucose 86 mg/dL (70-110); Potassium 3.9 mmol/L (3.5-5.5); Sodium 140 mmol/L (135-145); Total Bilirubin 1.3 mg/dL (0.3-1.2); Total Protein 4.8 g/dL (6.2-8.2)
[2024-11-23 11:06] LABS: HCT 27.5 % (37.2-46.3); Immature Platelet Fraction 6.6 % (1.1-6.1); MCH 29.7 pg (27.0-32.0); MCHC 29.1 g/dL (32.0-37.0); MCV 102.2 FL (80.0-97.0); Mean Platelet Volume 12.9 FL (9.5-12.2); NRBC Per 100 WBC 0 X 10*3/uL (0.00-0.01); Platelet Count 39 X 10*3/uL (140-440); RBC 2.69 X 10*6/uL (4.10-5.20); RDW 18.4 % (11.5-14.5); WBC 3.28 X 10*3/uL (4.50-10.00)
[2024-11-23 13:51] VITALS: BP 161/80; PULSE 71; TEMP 98
--- NOTE | 2024-11-23 14:45 | P.PN ---
Subjective Progress Note Date: 11/23/24 SURGICAL PROGRESS NOTE CHIEF COMPLAINT: Abdominal pain HISTORY OF PRESENT ILLNESS: Patient seen and examined this morning. She is sitting at bedside. She is tolerating diet. She reports that she just wants to go home. She refused laxatives and reported that she did not want to have a bowel movement in the bedpan. Patient reports that her pain feels like her chronic abdominal pain. Medicine service has discharged patient. She will follow-up outpatient with her PCP and oncology service for further discussion about treatment for oncology care or possible hospice. PHYSICAL EXAM: VITAL SIGNS: Reviewed. GENERAL: no acute distress. ABDOMEN: Soft. Nondistended. Mild tenderness to palpation ASSESSMENT: 1. Abdominal pain likely due to constipation and liver cancer 2. Elevated LFTs likely due to the liver cancer. Ultrasound did note enlarged gallbladder with pericholecystic fluid 3. History of metastatic lung cancer and liver cancer 4. Portal vein filling defect suggesting tumor thrombus noted on abdominal ultrasound 5. 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 Signing provider agrees with the documented findings, assessment, and plan of care. Objective - Vital Signs Vital signs: Vital Signs Temp 98.0 F 11/23/24 13:47 Pulse 71 11/23/24 13:47 Resp 16 11/23/24 13:47 BP 161/80 11/23/24 13:47 Pulse Ox 99 11/23/24 13:47 FiO2 Intake & Output 11/22/24 11/23/24 11/23/24 18:59 06:59 18:59 Weight 45.359 kg Other: Voiding Method External Catheter External Catheter # Voids 4 1 3 - Labs CBC & Chem 7: 11/23/24 06:07 11/23/24 06:07 Labs: Abnormal Lab Results - Last 24 Hours (Table) 11/22/24 11/23/24 11/23/24 Range/Units 11:09 06:07 06:07 WBC 3.28 L (4.50-10.00) X 10*3/uL RBC 2.69 L (4.10-5.20) X 10*6/uL Hgb 8.0 L (12.0-15.0) g/dL Hct 27.5 L (37.2-46.3) % MCV 102.2 H (80.0-97.0) FL MCHC 29.1 L (32.0-37.0) g/dL RDW 18.4 H (11.5-14.5) % Plt Count 39 A* (140-440) X 10*3/uL MPV 12.9 H (9.5-12.2) FL Immature Plt Fraction 6.6 H (1.1-6.1) % BUN/Creatinine Ratio 21.33 H (12.00-20.00) Ratio Calcium 8.0 L (8.7-10.3) mg/dL Total Bilirubin 1.3 H (0.3-1.2) mg/dL AST 74 H (13-35) U/L Alkaline Phosphatase 261 H (41-126) U/L Total Protein 4.8 L (6.2-8.2) g/dL Albumin 3.1 L (3.8-4.9) g/dL Procalcitonin 0.71 H (0.02-0.50) ng/mL Microbiology - Last 24 Hours (Table) 11/21/24 00:13 Blood Culture - Preliminary Blood
--- NOTE | 2024-11-23 16:41 | P.PN ---
Subjective Progress Note Date: 11/23/24 Principal diagnosis: HCC, pancytopenia In f/u today pt is ambulating around the room without O2, no c/o fever, chest pain, N,V, diarrhea, leg swelling, new pain. Objective - Vital Signs Vital signs: Vital Signs Temp 98.0 F 11/23/24 13:47 Pulse 71 11/23/24 13:47 Resp 16 11/23/24 13:47 BP 161/80 11/23/24 13:47 Pulse Ox 99 11/23/24 13:47 FiO2 Intake & Output 11/22/24 11/23/24 11/23/24 18:59 06:59 18:59 Weight 45.359 kg Other: Voiding Method External Catheter External Catheter # Voids 4 1 3 - Constitutional Constitutional Comment(s): petite General appearance: Present: average body habitus, cooperative, no acute distress - EENT Eyes: Present: anicteric sclerae, EOMI ENT: Present: hearing grossly normal - Respiratory Details: resp unlabored ambulating in room - Peripheral edema leg Peripheral Edema: bilateral: None - Neurologic Neurologic: Present: CNII-XII intact - Musculoskeletal Musculoskeletal: Present: strength equal bilaterally - Psychiatric Psychiatric: Present: A&O x's 3, appropriate affect, intact judgment & insight - Labs CBC & Chem 7: 11/23/24 06:07 11/23/24 06:07 Labs: Abnormal Lab Results - Last 24 Hours (Table) 11/22/24 11/23/24 11/23/24 Range/Units 11:09 06:07 06:07 WBC 3.28 L (4.50-10.00) X 10*3/uL RBC 2.69 L (4.10-5.20) X 10*6/uL Hgb 8.0 L (12.0-15.0) g/dL Hct 27.5 L (37.2-46.3) % MCV 102.2 H (80.0-97.0) FL MCHC 29.1 L (32.0-37.0) g/dL RDW 18.4 H (11.5-14.5) % Plt Count 39 A* (140-440) X 10*3/uL MPV 12.9 H (9.5-12.2) FL Immature Plt Fraction 6.6 H (1.1-6.1) % BUN/Creatinine Ratio 21.33 H (12.00-20.00) Ratio Calcium 8.0 L (8.7-10.3) mg/dL Total Bilirubin 1.3 H (0.3-1.2) mg/dL AST 74 H (13-35) U/L Alkaline Phosphatase 261 H (41-126) U/L Total Protein 4.8 L (6.2-8.2) g/dL Albumin 3.1 L (3.8-4.9) g/dL Procalcitonin 0.71 H (0.02-0.50) ng/mL Microbiology - Last 24 Hours (Table) 11/21/24 00:13 Blood Culture - Preliminary Blood Assessment and Plan (1) Influenza A Status: Acute Priority: High Code(s): J10.1 - FLU DUE TO OTH IDENT INFLUENZA VIRUS W OTH RESP MANIFEST SNOMED Code(s): 054054825 (2) HCC (hepatocellular carcinoma) Status: Chronic Priority: Medium Code(s): C22.0 - LIVER CELL CARCINOMA SNOMED Code(s): 538224229 (3) 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 She was on Tecentriq and Avastin and more recently, Cyramza, with treatment on November 17, cycle 3-day 1. Pt states she will see Dr. Stein in the near future. She does not think she wants to continue with treatment Portal vein thrombosis -Reported as possible tumor thrombus. -Patient was noted to be on 2.5 mg of Eliquis twice daily as well as Plavix. Both have been held because of low platelet counts. -CBC ordered daily. Resume patient on anticoagulation and antiplatelet therapy as soon as plt>50,000
--- NOTE | 2024-11-25 12:25 | P.DS ---
Providers Date of admission: 11/21/24 00:08 Expected date of discharge: 11/23/24 Attending physician: Lemuel Juarez Consults: 11/21/24 12:10 Consult Physician Urgent Consulting Provider: Blake Shaffer Consult Reason/Comments: pancytopenia, lung and liver cancer Do you want consulting provider notified?: Yes 11/21/24 12:11 Consult Physician Urgent Consulting Provider: Tyler Laguna Consult Reason/Comments: n/s , abd pain Do you want consulting provider notified?: Yes 11/21/24 14:07 Consult Physician Routine Consulting Provider: Linda Asencio Consult Reason/Comments: fever, influenza Do you want consulting provider notified?: Yes 11/21/24 17:26 Consult Physician Urgent Consulting Provider: Falguni Robertson Consult Reason/Comments: AMS Do you want consulting provider notified?: Yes Primary care physician: Yordy Westbrook DO Hospital Course: Final diagnosis Altered mental status, likely metabolic encephalopathy. Rule out intracranial causes. Initially MRI was ordered although patient refused and per recently had an MRI at [facility] and attempting to obtain these records Influenza A infection, continued on Tamiflu Intractable nausea vomiting with history of esophageal stricture, improving Lung cancer and metastasis to the liver with liver cancer s/p chemotherapy last dose was last week Pancytopenia, could be secondary to her recent chemotherapy Bilateral punctate nonobstructive renal stone Hypertension, uncontrolled Moderate calorie protein malnutrition with a BMI of 17.7 GI prophylaxis DVT prophylaxis, mechanical, awaiting to discuss with consults regarding resuming anticoagulation No code Discharge disposition Patient is being discharged in a stable condition with guarded prognosis to home. Patient will follow-up with Dr. Garduno and Dulce in the outpatient setting upon discharge. Patient is to continue with Tamiflu and outpatient follow-up with primary oncologist as scheduled. Total time taken is greater than 35 m inutes. Hospital course This is a 64-year-old female who was recently admitted with altered mental status with metabolic encephalopathy found to have acute influenza A. Patient also with nausea and vomiting likely secondary to above showing some improvements maintained on Tamiflu. Patient is refusing any further care and wants to go home. Patient reports she wants hospice at home although this has not been confirmed with family. Patient does live with at home. Patient has been refusing treatment and is adamant about going home. Patient is awake, alert and oriented at her baseline walking around with steady gait with her walker. Patient reports she has walkers in the home and is persisting on going home today. Patient prescription provided for Tamiflu and has been instructed to follow-up with primary oncologist on discharge. Currently no reports of chest pain, shortness of breath, or palpitations. Patient is afebrile. No reports of nausea or vomiting and patient is tolerating diet. Patient will be discharged home today. High risk for readmissions given continued ongoing significant comorbidities. Patient was instructed to discuss with primary care provider along with regarding the want and need for hospice. Physical exam: Gen: This is a 64-year-old female who is awake, alert and oriented x 2, well- developed, elderly appearing, thin built HEENT: Head is atraumatic, normocephalic. Pupils equal, round. Sclerae is anicteric. NECK: Supple. No JVD. No lymphadenopathy. No thyromegaly. LUNGS: Clear to auscultation. No wheezes or rhonchi. No intercostal retractions. HEART: S1, S2 are muffled ABDOMEN: Soft. Thin. Bowel sounds are present. No masses. No tenderness. EXTREMITIES: No pedal edema. No calf tenderness. NEUROLOGICAL: Patient is awake, alert and oriented x3. Cranial nerves 2 through 12 are grossly intact. Please refer to medication reconciliation sheet for a list of medications. The impression and plan of care has been dictated by Luly Aden, Nurse Practitioner as directed. Dr. Tyson MD I have performed a history and examination and MDM of this patient, discussed the same with the dictator, and agree with the dictator's assessment and plan as written ,documented as a scribe. Based on total visit time, I have performed more than 50% of the visit. Patient Condition at Discharge: Poor Plan - Discharge Summary Discharge Rx Participant: No New Discharge Prescriptions: New Lactulose [Cephulac] 30 gm PO BID ml Levothyroxine Sodium 50 mcg PO DAILY 30 Days #60 tab Acetaminophen Tab [Tylenol] 325 mg PO Q6HR PRN tab PRN Reason: Fever And/ Or Pain polyethylene glycoL 3350 [Miralax] 17 gm PO DAILY #30 packet Oseltamivir [Tamiflu] 75 mg PO Q12HR 5 Days #10 cap Continue lamoTRIgine [LaMICtal] 150 mg PO DAILY amLODIPine [Norvasc] 5 mg PO DAILY Nicotine 21Mg/24Hr Patch [Habitrol] 1 patch TRANSDERM DAILY PRN PRN Reason: cravings Acyclovir 5% Oint [Zovirax Oint] 1 applic TOPICAL DAILY PRN PRN Reason: HERPES OUTBREAK Hyoscyamine Sulfate [Levsin] 0.125 mg PO Q4H PRN PRN Reason: CRAMPING Isosorbide Mononitrate ER [Imdur] 90 mg PO BID HYDROcodone/APAP 10-325MG [Leicester 10-325] 2 tab PO Q4HR fentaNYL 25MCG/HR PATCH [Duragesic 25MCG/HR] 1 patch TRANSDERM Q72H fentaNYL 100MCG/HR PATCH [Duragesic 100MCG/HR] 1 patch TRANSDERM Q72H diazePAM [Valium] 2 mg PO HS PRN PRN Reason: SLEEP Ondansetron Odt [Zofran ODT] 4 mg PO TID PRN PRN Reason: Nausea Nitroglycerin Sl Tabs [Nitrostat] 0.4 mg SL Q5M PRN PRN Reason: Chest Pain Pantoprazole [Protonix] 40 mg PO BID Lidocaine Viscous 2% [Xylocaine Viscous] 5 ml PO QID PRN PRN Reason: SEVERE MOUTH PAIN ALPRAZolam [Xanax] 0.25 mg PO BID PRN PRN Reason: Anxiety Albuterol Inhaler [Ventolin Hfa Inhaler] 2 puff INHALATION RT-QID PRN PRN Reason: Bronchospasm lisinopriL [Zestril] 20 mg PO BID Metoprolol Succinate [Metoprolol Succinate ER] 25 mg PO DAILY Lidocaine-Prilocaine Cream [Emla Cream 2.5%/2.5%] 1 applic TOPICAL DAILY PRN PRN Reason: mediport 1 hr prior treatment Fluticasone Propion/Salmeterol [Wixela 250-50 Inhub] 1 puff INHALATION RT-BID Lubiprostone 8 mcg PO BID@0730,2100 Discontinued Clopidogrel [Plavix] 75 mg PO DAILY 30 Days #30 tablet Lactulose 10 gm PO BID PRN PRN Reason: Constipation Levothyroxine Sodium [Levoxyl] 75 mcg PO DAILY Apixaban [Eliquis] 2.5 mg PO BID Discharge Medication List lamoTRIgine [LaMICtal] 150 mg PO DAILY 04/13/18 [History] Nicotine 21Mg/24Hr Patch [Habitrol] 1 patch TRANSDERM DAILY PRN 01/25/22 [H istory] Nitroglycerin Sl Tabs [Nitrostat] 0.4 mg SL Q5M PRN 01/25/22 [History] Pantoprazole [Protonix] 40 mg PO BID 01/25/22 [History] amLODIPine [Norvasc] 5 mg PO DAILY 01/25/22 [History] ALPRAZolam [Xanax] 0.25 mg PO BID PRN 11/21/24 [History] Acyclovir 5% Oint [Zovirax Oint] 1 applic TOPICAL DAILY PRN 11/21/24 [History] Albuterol Inhaler [Ventolin Hfa Inhaler] 2 puff INHALATION RT-QID PRN 11/21/24 [History] Fluticasone Propion/Salmeterol [Wixela 250-50 Inhub] 1 puff INHALATION RT-BID 11/21/24 [History] HYDROcodone/APAP 10-325MG [Leicester 10-325] 2 tab PO Q4HR 11/21/24 [History] Hyoscyamine Sulfate [Levsin] 0.125 mg PO Q4H PRN 11/21/24 [History] Isosorbide Mononitrate ER [Imdur] 90 mg PO BID 11/21/24 [History] Lidocaine Viscous 2% [Xylocaine Viscous] 5 ml PO QID PRN 11/21/24 [History] Lidocaine-Prilocaine Cream [Emla Cream 2.5%/2.5%] 1 applic TOPICAL DAILY PRN 11/21/24 [History] Lubiprostone 8 mcg PO BID@0730,2100 11/21/24 [History] Metoprolol Succinate [Metoprolol Succinate ER] 25 mg PO DAILY 11/21/24 [History] Ondansetron Odt [Zofran ODT] 4 mg PO TID PRN 11/21/24 [History] diazePAM [Valium] 2 mg PO HS PRN 11/21/24 [History] fentaNYL 100MCG/HR PATCH [Duragesic 100MCG/HR] 1 patch TRANSDERM Q72H 11/21/24 [History] fentaNYL 25MCG/HR PATCH [Duragesic 25MCG/HR] 1 patch TRANSDERM Q72H 11/21/24 [History] lisinopriL [Zestril] 20 mg PO BID 11/21/24 [History] Acetaminophen Tab [Tylenol] 325 mg PO Q6HR PRN tab 11/23/24 [Rx] Lactulose [Cephulac] 30 gm PO BID ml 11/23/24 [Rx] Levothyroxine Sodium 50 mcg PO DAILY 30 Days #60 tab 11/23/24 [Rx] Oseltamivir [Tamiflu] 75 mg PO Q12HR 5 Days #10 cap 11/23/24 [Rx] polyethylene glycoL 3350 [Miralax] 17 gm PO DAILY #30 packet 11/23/24 [Rx] Follow up Appointment(s)/Referral(s): Yordy Westbrook DO [Primary Care Provider] - 1-2 days Panchito Garduno MD [REFERRING] - 1 Week Ambulatory/Diagnostic Orders: Complete Blood Count w/diff [LAB.AMB] Time Frame: 3 Days, Location: None Selected Activity/Diet/Wound Care/Special Instructions: Activity limited until follow-up Follow-up with primary care provider on discharge Follow-up with primary oncologist Dr. Garduno on discharge to discuss treatment options or no further treatment options moving forward Follow-up with primary care provider along with talking with family regarding your request for hospice Continue with Tamiflu to complete the course Recommend follow-up for repeat labs to monitor hemoglobin and platelets Discharge Disposition: HOME SELF-CARE
--- NOTE | 2024-11-30 14:14 | P.PN ---
Subjective Progress Note Date: 11/22/24 Principal diagnosis: Reason for follow-up is acute influenza A Patient is a 64-year-old female with a past medical history significant for coronary disease [place], metastatic lung cancer, did have a chronic hip and back pain presenting to the hospital for evaluation of abdominal and chest pain as well as nausea and vomiting and feeling weak, patient did have fever had been diagnosed with acute influenza CT did shows distended gallbladder. On today's evaluation that is 11/22/2023, patient did have resolution of her fever and is afebrile this morning she is currently breathing comfortably 3 L current oxygen denies any chest pain or worsening cough nausea no further vo miting and no diarrhea. Patient white count is 4.2 creatinine 0.61 ALT 20 alkaline phos is 291 proca lcitonin 0.71 abdominal ultrasound fluid around the gallbladder wall which is within normal limit Objective - Vital Signs Vital signs: Vital Signs Temp 98.5 F 11/22/24 07:04 Pulse 72 11/22/24 07:04 Resp 16 11/22/24 07:04 BP 151/75 11/22/24 07:04 Pulse Ox 96 11/22/24 07:04 FiO2 Intake & Output 11/21/24 11/22/24 11/22/24 18:59 06:59 18:59 Intake Total 1000 3047 Output Total 700 Balance 300 3047 Intake: Oral 1000 3047 Output: Urine 700 Other: Voiding Method External Catheter External Catheter # Voids 5 # Bowel Movements 1 - Exam GENERAL DESCRIPTION: Middle-age female lying in bed in no distress RESPIRATORY SYSTEM: Unlabored breathing , decreased breath sounds at bases HEART: S1 S2 regular rate and rhythm , ABDOMEN: Soft , no tenderness EXTREMITIES: No edema feet - Labs CBC & Chem 7: 11/23/24 06:07 11/23/24 06:07 Assessment and Plan (1) Influenza A Status: Acute Priority: High Code(s): J10.1 - FLU DUE TO OTH IDENT INFLUENZA VIRUS W OTH RESP MANIFEST SNOMED Code(s): 110764542 (2) Penicillin allergy Status: Acute Code(s): Z88.0 - ALLERGY STATUS TO PENICILLIN SNOMED Code(s): 08948577 (3) Elevated liver enzymes Status: Acute Code(s): R74.8 - ABNORMAL LEVELS OF OTHER SERUM ENZYMES SNOMED Code(s): 466489216 Plan: 1patient presented to hospital with generalized weakness nausea vomiting she also have a cough and a fever has been diagnosed with acute influenza A patient chest x-ray was negative for acute infiltrate patient did have elevated liver enzymes with symptoms of nausea vomiting need to rule out gallbladder disease though CT reported gallbladder to be normal but distended 2penicillin allergy that will limit the number of antibiotics safe to use 3patient did have ultrasound of the liver and gallbladder area mention some fluid around the gallbladder but no thickening 4patient to continue with Tamiflu 75 mg p.o. twice daily for 5 days along with Rocephin General Surgery has been consulted for abnormality seen on the gallbladder Dictation was produced using [employer] dictation software. please excuse any grammatical, word or spelling errors. Time with Patient: Less than 30
--- NOTE | 2024-11-30 14:15 | P.PN ---
Subjective Progress Note Date: 11/23/24 Principal diagnosis: Reason for follow-up is acute influenza A Patient is a 64-year-old female with a past medical history significant for coronary disease [place], metastatic lung cancer, did have a chronic hip and back pain presenting to the hospital for evaluation of abdominal and chest pain as well as nausea and vomiting and feeling weak, patient did have fever had been diagnosed with acute influenza CT did shows distended gallbladder. On today's evaluation that is 11/23/2024, Patient has been afebrile, patient denies having any chest pain shortness of breath did have occasional dry cough and breathing comfortably on 3 L current oxygen, patient denies any abdominal pain no diarrhea no nausea no vomiting Patient white count is 3.08 creatinine 0.6 Objective - Vital Signs Vital signs: Vital Signs Temp 98.0 F 11/23/24 13:47 Pulse 71 11/23/24 13:47 Resp 16 11/23/24 13:47 BP 161/80 11/23/24 13:47 Pulse Ox 99 11/23/24 13:47 FiO2 Intake & Output 11/22/24 11/23/24 11/23/24 18:59 06:59 18:59 Weight 45.359 kg Other: Voiding Method External Catheter External Catheter # Voids 4 1 3 - Exam GENERAL DESCRIPTION: Middle-age female lying in bed in no distress RESPIRATORY SYSTEM: Unlabored breathing , decreased breath sounds at bases HEART: S1 S2 regular rate and rhythm , ABDOMEN: Soft , no tenderness EXTREMITIES: No edema feet - Labs CBC & Chem 7: 11/23/24 06:07 11/23/24 06:07 Labs: Abnormal Lab Results - Last 24 Hours (Table) 11/22/24 11/23/24 11/23/24 Range/Units 11:09 06:07 06:07 WBC 3.28 L (4.50-10.00) X 10*3/uL RBC 2.69 L (4.10-5.20) X 10*6/uL Hgb 8.0 L (12.0-15.0) g/dL Hct 27.5 L (37.2-46.3) % MCV 102.2 H (80.0-97.0) FL MCHC 29.1 L (32.0-37.0) g/dL RDW 18.4 H (11.5-14.5) % Plt Count 39 A* (140-440) X 10*3/uL MPV 12.9 H (9.5-12.2) FL Immature Plt Fraction 6.6 H (1.1-6.1) % BUN/Creatinine Ratio 21.33 H (12.00-20.00) Ratio Calcium 8.0 L (8.7-10.3) mg/dL Total Bilirubin 1.3 H (0.3-1.2) mg/dL AST 74 H (13-35) U/L Alkaline Phosphatase 261 H (41-126) U/L Total Protein 4.8 L (6.2-8.2) g/dL Albumin 3.1 L (3.8-4.9) g/dL Procalcitonin 0.71 H (0.02-0.50) ng/mL Microbiology - Last 24 Hours (Table) 11/21/24 00:13 Blood Culture - Preliminary Blood Assessment and Plan (1) Influenza A Status: Acute Priority: High Code(s): J10.1 - FLU DUE TO OTH IDENT INFLUENZA VIRUS W OTH RESP MANIFEST SNOMED Code(s): 212176990 (2) Penicillin allergy Status: Acute Code(s): Z88.0 - ALLERGY STATUS TO PENICILLIN SNOMED Code(s): 10286195 (3) Elevated liver enzymes Status: Acute Code(s): R74.8 - ABNORMAL LEVELS OF OTHER SERUM ENZYMES SNOMED Code(s): 162243621 Plan: 1patient presented to hospital with generalized weakness nausea vomiting she also have a cough and a fever has been diagnosed with acute influenza A patient chest x-ray was negative for acute infiltrate patient did have elevated liver enzymes with symptoms of nausea vomiting need to rule out gallbladder disease though CT reported gallbladder to be normal but distended 2penicillin allergy that will limit the number of antibiotics safe to use 3patient did have ultrasound of the liver and gallbladder area mention some fluid around the gallbladder but no thickening, patient has been evaluated by general surgery, no surgical intervention 4patient to continue with Tamiflu 75 mg p.o. twice daily for 5 days along with Rocephin and monitor clinical course closely Dictation was produced using [employer] dictation software. please excuse any grammatical, word or spelling errors. Time with Patient: Less than 30
== END 2024-11-23 14:22 | disposition home or self-care (01) | DRG 193 ==
LOC: EC 21:37 → 4SSUR 11-21 00:08
PROVIDERS: ADMIT Hospitalist; ATTEND Hospitalist
DX: J10.1 Influenza due to other identified influenza virus with other respiratory manifestations (principal); D61.810 Antineoplastic chemotherapy induced pancytopenia; G93.41 Metabolic encephalopathy; I81 Portal vein thrombosis; C22.0 Liver cell carcinoma; E78.5 Hyperlipidemia, unspecified; K21.9 Gastro-esophageal reflux disease without esophagitis; I10 Essential (primary) hypertension; M54.9 Dorsalgia, unspecified; M25.551 Pain in right hip; Z66 Do not resuscitate; K59.00 Constipation, unspecified; I25.10 Atherosclerotic heart disease of native coronary artery without angina pectoris; G89.3 Neoplasm related pain (acute) (chronic); I25.2 Old myocardial infarction; N20.0 Calculus of kidney; T45.1X5A Adverse effect of antineoplastic and immunosuppressive drugs, initial encounter; K82.8 Other specified diseases of gallbladder; R29.6 Repeated falls; R32 Unspecified urinary incontinence; F17.210 Nicotine dependence, cigarettes, uncomplicated; Z79.01 Long term (current) use of anticoagulants; Z79.02 Long term (current) use of antithrombotics/antiplatelets; Z79.891 Long term (current) use of opiate analgesic; Z79.890 Hormone replacement therapy; Z79.899 Other long term (current) drug therapy; Z88.0 Allergy status to penicillin; Z88.5 Allergy status to narcotic agent; Z88.8 Allergy status to other drugs, medicaments and biological substances; Z91.041 Radiographic dye allergy status; Z95.5 Presence of coronary angioplasty implant and graft; Y92.009 Unspecified place in unspecified non-institutional (private) residence as the place of occurrence of the external cause
CPT/HCPCS: 36415; 70450; 71045; 74176; 76705; 80048; 80053; 80076; 81001; 82140; 82150; 83605; 83690; 83880; 84145; 84484; 85025; 85027; 85610; 85730; 87040; 87636; 96365; 96375; 99285